=== PATIENT | female | born 1950 | race Two or more races ===

== ENCOUNTER 2024-04-22 08:08 | Inpatient (IN) | payer MEDICARE, BC, SELFPAY ==
[2024-04-22] VITALS (7 sets, daily range): BP systolic 128–147; BP diastolic 69–80; PULSE 64–98; RESP 16–96; TEMP 36.7–37; O2SAT 94–100; BMI 32.2; BMI 29.2
--- NOTE | 2024-04-22 08:53 | XR_ITS ---
Examination: Abdomen AP single view Technique: AP portable supine abdomen, single view Exam date and time: April 22, 2024 at 0900 hrs. Indications: Gastrointestinal bleeding beginning 3 days ago. Findings: Large staghorn calculus upper pole calyces left kidney Surgical clips upper right abdomen Nonobstructive bowel gas pattern Impression: Nonobstructive bowel gas pattern Consider nuclear medicine gastrointestinal bleeding study follow-up or CTA abdomen pelvis post intravenous contrast follow-up
--- NOTE | 2024-04-22 08:54 | PD.EDRME ---
Rapid Medical Screening Exam RME Arrival date/time: 04/22/24 08:08 Chief Complaint: GI Bleed Time Seen by Provider: 04/22/24 08:24 Vital signs: Vital Signs Temperature 98.6 F 04/22/24 08:35 Pulse Rate 98 04/22/24 08:35 Respiratory Rate 20 04/22/24 08:35 Blood Pressure 144/80 H 04/22/24 08:35 Pulse Oximetry (%) 97 04/22/24 08:35 Oxygen Delivery Method Room Air 04/22/24 08:35 Vital signs reviewed by provider: Yes RME Narrative: 73-year-old female presents for evaluation of GI bleed x 1 day. She denies abdominal pain. Denies prior abdominal bleed. Patient is not currently taking blood thinner. Denies recent trauma
--- NOTE | 2024-04-22 09:02 | XR_ITS ---
Examination: CT abdomen and pelvis without contrast. Coronal 3-D reconstructions. Sagittal 2-D reconstructions. Date and time of exam:April 22, 2024 0913 hrs. Indications: Onset blood in the stool today CTDI: vol (mGy): 11.6 DLP: (mGycm): 654 Technique: Axial images of the abdomen have been obtained, 3 mm slice thickness Intravenous contrast material has not been administered. Low dose protocols were performed. One or more of the following dose reduction techniques were used; automated exposure control, adjustment of the mA and/or KV according to patient size, use of iterative reconstruction technique. Findings: Liver is irregular in contour Absent gallbladder Spleen is not enlarged No pancreatic mass Large staghorn left renal calculi without hydronephrosis Aorta normal size and heavily calcified No pericecal inflammatory change No bowel obstruction Colonic diverticulosis Contracted urinary bladder Lack of intravenous contrast limits assessment for gastrointestinal bleeding and Impression: Large left renal staghorn calculi No hydronephrosis or ureteral calculi No CT findings of appendicitis or bowel obstruction Colonic diverticulosis, no diverticulitis No findings diagnostic for nonspecific colitis or enteritis If gastrointestinal bleeding persists, suggest CTA abdomen pelvis post intravenous contrast follow-up
--- NOTE | 2024-04-22 09:30 | PC.NURSE ---
Pt. here from home to bed 6, pt. states she has blood in her stool since Thursday and every day it has gotten worse. Pt. has pictures on her phone and blood is bright red, it appears to be a moderate amount from the pictures. From the picture water in pt.'s toilet is red. Pt. states she doesn't feel bad and yesterday was painting a rental house. Pt. has small red dots to her lower extremities, pt. states she thinks they are flea bites. No s/s of distress noted at this time. Warm blanket given to pt.
[2024-04-22 09:37] LABS: Basophils # (Auto) 0.1 Thou/mm3 (0.0-0.2); Basophils % (Auto) 1 % (0-2.5); Eosinophils # (Auto) 0.1 Thou/mm3 (0.0-0.5); Eosinophils % (Auto) 1 % (0-10); Hematocrit 38.7 % (36.0-46.0); Hemoglobin 12.8 g/dL (12.0-16.0); Immature Granulocytes % (Auto) 0 % (0-0); Immature Granulocytes Auto 0.03 Thou/mm3 (0.00-0.00); Lymphocytes # (Auto) 1.3 Thou/mm3 (1.0-4.8); Lymphocytes % (Auto) 13 % (10-50); Mean Corpuscular HGB Conc 33.1 g/dl (31.0-37.0); Mean Corpuscular Volume 100 fL (80-100); Monocytes # (Auto) 0.4 Thou/mm3 (0.0-0.8); Monocytes % (Auto) 5 % (0-12); Neutrophils # (Auto) 7.6 Thou/mm3 (1.8-7.7); Neutrophils % (Auto) 81 % (37-80); Nucleated Red Blood Cell % 0 /100 WBC (0); Platelet Count 215 Thou/mm3 (140-440); RDW Standard Deviation 46.5 fL (36.4-46.3); Red Blood Count 3.88 Miln/mm3 (4.00-5.20); White Blood Count 9.5 Thou/mm3 (3.6-11.0)
--- NOTE | 2024-04-22 09:37 | EDNOTE_ITS ---
ED GI Bleed RME/HPI General Chief complaint: GI Bleed Stated complaint: BLOODY STOOL Time Seen by Provider: 04/22/24 08:24 Arrival date/time: 04/22/24 08:08 Limitations: no limitations RME / HPI RME / HPI Narrative: HPI (History of Present Illness): A 73-year-old female presents for evaluation of gastrointestinal bleeding, which has been ongoing for one day. She denies any associated abdominal pain or previous episodes of abdominal bleeding. The patient is not currently on blood thinners and reports no recent trauma. She provides photographs of her commode, which show bright red blood. Notably, she underwent a routine colonoscopy one year ago, which was unremarkable. Her past surgical history includes a cholecystectomy. Differential Diagnosis (DDx): * Hemorrhoids: Given the bright red blood in the commode, hemorrhoids are a common cause of lower gastrointestinal bleeding, often presenting with painless rectal bleeding. * Diverticular Disease: Diverticulosis or diverticulitis can present with acute, painless lower GI bleeding, often manifesting as bright red blood. * Colorectal Cancer: Although the patient?s previous colonoscopy was unremarkable, new onset bleeding warrants consideration of a mass or malignancy, particularly in an elderly patient. * Gastric or Duodenal Ulcer: Upper GI sources of bleeding, such as peptic ulcer disease, can present with hematochezia if the bleeding is profuse or rapid. * Angiodysplasia: Vascular malformations in the colon can cause intermittent, painless bleeding, often in the elderly. * Small Bowel Bleeding: While less common, a source of bleeding in the small int estine could present with hematochezia. Given the lack of abdominal pain and the patient's unremarkable colonoscopy history, further diagnostic work-up may be required to localize the source of the bleeding. Related Data Home Medications ?Medication ?Instructions ?Recorded ?Confirmed atorvastatin 40 mg tablet (Lipitor) 40 mg PO QDAY 06/26/22 03/08/24 loratadine 10 mg tablet (Claritin) 10 mg PO QDAY 06/30/22 03/08/24 Allergies Allergy/AdvReac Type Severity Reaction Status Date / Time No Known Allergies Allergy Verified 04/22/24 08:09 Review of Systems Review of Systems Systems Reviewed: All systems reviewed, normal except as documented Past Medical History Past Medical History NEUROLOGIC: Negative Neurological Disorders CARDIAC: Positive Cardiac Disorders and Hypercholesterolemia GASTROINTESTINAL: Positive Gastrointestinal Disorders (fatty liver), Gall Bladder Disease and Obesity GENITOURINARY: Positive Genitourinary Disorders and Kidney Stones REPRODUCTIVE: Positive Previous Pregnancies MUSCULOSKELETAL: Positive Musculoskeletal Disorders (cysts in spinal magdiel) ENDOCRINE: Negative Endocrine Disorders OTHER HISTORY: Positive Hospitalization (surgeries) and Blood Transfusions Family History FAMILY HISTORY: Positive Family Cardiac Disorders, Family Cancer and Family Surgery Surgical History SURGICAL: Positive Arthroscopy (ligament left ankle) and Section (2); Negative Cardiac Surgery Social History SMOKING STATUS: Never smoker ED Exam General Limitations: Present no limitations General appearance: Present alert and in no apparent distress Head Head exam: Present atraumatic, normocephalic and normal inspection Eye Eye exam: Present normal appearance ENT ENT exam: Present normal exam and normal oropharynx Neck Neck exam: Present normal inspection and full ROM Chest Chest inspection: Present symmetric chest wall rise Respiratory Respiratory exam: Present normal lung sounds bilaterally Cardiovascular Cardiovascular exam: Present regular rate and normal rhythm Abdominal Exam Abdominal exam: Present soft and normal bowel sounds Rectal Exam Rectal exam: Present normal inspection and hemorrhoids (Empty hemorrhoid without active bleeding. BRB mixed with stool. Bella RN chaperoned) Extremities Exam Extremities exam: Present normal inspection Back Exam Back exam: Present normal inspection Neurological Exam Neurological exam: Present alert, oriented X3 and CN II-XII intact Psychiatric Psychiatric exam: Present normal affect and normal mood Skin Skin exam: Present warm, dry and intact Course Quality Measures none Orders Category Date Time Status COVID-19 Screening Questionnaire NOW Care 04/22/24 10:01 Active Decision to Admit X1 Care 04/22/24 10:00 Active Insert IV STAT Care 04/22/24 08:51 Active NPO NOW Care 04/22/24 08:51 Active Occult Blood,Stool (Nursing) NOW Care 04/22/24 08:[address] abdomen pelvis wo con Stat Exams 04/22/24 09:02 Completed XR abdomen 1V Stat Exams 04/22/24 08:53 Completed CBC Stat Lab 04/22/24 09:10 Completed Comprehensive Metabolic Panel Stat Lab 04/22/24 09:10 Completed Lipase Stat Lab 04/22/24 09:10 Completed Magnesium Stat Lab 04/22/24 09:10 Completed Partial Thromboplastin Time Stat Lab 04/22/24 09:10 Completed Prothrombin Time with INR Stat Lab 04/22/24 09:10 Completed Troponin I Stat Lab 04/22/24 09:10 Completed Type and Screen Stat Lab 04/22/24 09:10 Completed Urinalysis Stat Lab 04/22/24 08:52 Ordered Urine Culture Stat Lab 04/22/24 08:52 Ordered Pantoprazole Inj [Protonix Inj] Med 04/22/24 08:51 Discontinued 40 mg IVP X1 ONE Vital Signs Vital signs: Vital Signs Temperature 98.6 F 04/22/24 08:35 Pulse Rate 98 04/22/24 08:35 Respiratory Rate 20 04/22/24 08:35 Blood Pressure 144/80 H 04/22/24 08:35 Pulse Oximetry (%) 97 04/22/24 08:35 Oxygen Delivery Method Room Air 04/22/24 08:35 Pulse ox is 97% on room air which is adequate. GI Bleed MDM Narrative MDM Narrative:: Roxy Martinez am scribing for and in the presence of Dr. Alexander. Patient data External records reviewed:: [facility] previous records (I reviewed colonoscopy on 06/30/2022) Clinical information provided by:: patient Social determinants that could affect healthcare access:: none Patient has the following chronic illnesses:: hx of cholecystectomy, hyperlipidemia How is presenting disease/condition affected by chronic disease/condition?: uneffected by Evaluation data The following diagnostics were reviewed and interpreted by me:: lab results and radiology exam(s) Lab and/or radiology exams considered but not ordered:: None Interpretation Summary: Ordering Physician: Igor Monroe PA-C Date of Service: 04/22/24 Procedure(s): CT abdomen pelvis wo [facility] Accession Number(s): [id number] cc: Igor Monroe PA-C; Matt Balderas MD~ Examination: CT abdomen and pelvis without contrast. Coronal 3-D reconstructions. Sagittal 2-D reconstructions. Date and time of exam:April 22, 2024 0913 hrs. Indications: Onset blood in the stool today CTDI: vol (mGy): 11.6 DLP: (mGycm): 654 Technique: Axial images of the abdomen have been obtained, 3 mm slice thickness Intravenous contrast material has not been administered. Low dose protocols were performed. One or more of the following dose reduction techniques were used; automated exposure control, adjustment of the mA and/or KV according to patient size, use of iterative reconstruction technique. Findings: Liver is irregular in contour Absent gallbladder Spleen is not enlarged No pancreatic mass Large staghorn left renal calculi without hydronephrosis Aorta normal size and heavily calcified No pericecal inflammatory change No bowel obstruction Colonic diverticulosis Contracted urinary bladder Lack of intravenous contrast limits assessment for gastrointestinal bleeding and Impression: Large left renal staghorn calculi No hydronephrosis or ureteral calculi No CT findings of appendicitis or bowel obstruction Colonic diverticulosis, no diverticulitis No findings diagnostic for nonspecific colitis or enteritis If gastrointestinal bleeding persists, suggest CTA abdomen pelvis post intravenous contrast follow-up Dictated By: Matt Balderas MD Signed By: <Electronically signed by Matt Balderas MD in OV> 04/22/24 1011 Ordering Physician: Igor Monroe PA-C Date of Service: 04/22/24 Procedure(s): XR abdomen 1V Accession Number(s): [id number] cc: Igor Monroe PA-C; Matt Balderas MD; Bettina Mendiola MD~ Examination: Abdomen AP single view Technique: AP portable supine abdomen, single view Exam date and time: April 22, 2024 at 0900 hrs. Indications: Gastrointestinal bleeding beginning 3 days ago. Findings: Large staghorn calculus upper pole calyces left kidney Surgical clips upper right abdomen Nonobstructive bowel gas pattern Impression: Nonobstructive bowel gas pattern Consider nuclear medicine gastrointestinal bleeding study follow-up or CTA abdomen pelvis post intravenous contrast follow-up Dictated By: Matt Balderas MD Signed By: <Electronically signed by Matt Balderas MD in OV> 04/22/24 1030 Medications / Prescriptions Medications or Prescriptions considered but not ordered:: None Medication administrations:: Medication Administration History Discontinued Medications Pantoprazole Sodium (Pantoprazole Inj 40 Mg Vial) 40 mg IVP X1 ONE Stop: 04/22/24 08:52 Last Admin: 04/22/24 10:31 Dose: 40 mg Documented By: DO See above Consultations Consultation(s) initiated? (list below): Yes Consultation #1 (Physician, Specialty, Details): I spoke with GI Dr. Jones. Discussed patients PMHx, HPI, ED course, exam findings, labs, and radiology results. He agrees to consult. Time: 09:50 Consultation #2 (Physician, Specialty, Details): I spoke with resident Dr. Mitchell working with Dr. Kaufman. Discussed patients PMHx, HPI, ED course, exam findings, labs, and radiology results. Will come evaluate the patient in the ED. Time: 10:00 Diagnosis GI bleed differential diagnosis: other (diverticulitis, colorectal cancer, gastric or duodenal ulcer, angiodysplasia ) Most likely diagnosis given after review of the tests above:: Bright red blood per rectum Admission Indicated Admission indicated?: indicated Admission Request Was there a request for admission?: Yes Admission Attestation Admission request attestation: Discussed case with [] from Hospitalist service regarding admission. Discussed patients ED course, exam findings, labs, and radiology results. The Hospitalist [agrees,declines] to accept the patient for admission. Disposition Plan Disposition Plan: Admit Discharge Plan Plan Patient Disposition: Admit Acute Care w/in Hospital Patient condition on transfer: Stable Prescriptions/Referrals Prescriptions/Med Rec: No Action atorvastatin [Lipitor] 40 mg tablet 40 mg PO QDAY loratadine [Claritin] 10 mg Tablet 10 mg PO QDAY Problem List Clinical Impression: BRBPR (bright red blood per rectum) Patient/Caregiver Discharge Instructions Print Language: [place]an Stand Alone Forms: Padma Award Info., Patient Portal Info Letter
[2024-04-22 09:38] LABS: Partial Thromboplastin Time 25.5 Seconds (22.0-36.0); Prothrombin Time 10.7 Seconds (9.0-12.2)
[2024-04-22 09:42] LABS: Alanine Aminotransferase 19 U/L (10-49); Albumin, Serum 3.9 gm/dL (3.4-4.8); Albumin/Globulin Ratio 1.3 (1.2-2.2); Alkaline Phosphatase 137 U/L (46-116); Anion Gap 6 (7-16); Aspartate Amino Transferase 25 U/L (0-34); BUN/Creatinine Ratio 21 Ratio (12-20); Bilirubin,Total 0.6 mg/dL (0.3-1.2); Blood Urea Nitrogen 15 mg/dL (9-23); Calcium 9.5 mg/dL (8.3-10.6); Calcium (Corrected) 9.6 mg/dL (8.5-10.1); Carbon Dioxide 27.3 mMol/L (20.0-31.0); Chloride 109 mMol/L (98-107); Creatinine (Component) 0.7 mg/dL (0.6-1.3); Glucose 106 mg/dL (74-106); Lipase 37 U/L (12-53); Magnesium 2.1 mg/dL (1.6-2.6); Osmolality,Calculated 283 (275-295); Potassium 3.8 mMol/L (3.4-5.1); Sodium 142 mMol/L (136-145); Total Protein 6.9 gm/dL (5.7-8.2); Troponin I < 0.020 ng/mL (0.0-0.045); eGFR > 60 See Note
--- NOTE | 2024-04-22 09:49 | PC.NURSE ---
assisted Dr. Alexander in room 6, Dr. Alexander assessing pt.'s buttocks and anus. Pt. tolerated well. Cleaned pt. buttocks with warm wipes, pt. had dried blood present.
[2024-04-22] MEDS: PANTOPRAZOLE INJ 40 MG VIAL IVP ×2 (10:31→20:28)
--- NOTE | 2024-04-22 11:11 | PC.NURSE ---
Pt. denies any dizziness.
--- NOTE | 2024-04-22 11:30 | PC.CC ---
Patient is a 73 year-old, female who presents to the hospital for bloody stool. Luz Marina HERNANDEZ made [id number] contact with patient. ASW introduced self, role, and reason for visit. Patient appeared alert and oriented to self, location, and situation. Patient was pleasant and engaged in initial assessment. Patient confirmed information on demographics and reports to living at home with her Shon Arredondo . Patient shared her and son Ronal Arredondo are both part of her support system. Per patient, prior to being admitted to the hospital she was able to complete her own ADLs and is independently ambulatory. The patient received primary care with Dr. Mendiola and uses [facility] for prescription medication needs. Upon discharge patient plans to return back home. resident services coordinator to follow-up with any discharge needs.
--- NOTE | 2024-04-22 13:08 | ESHP_ITS ---
<Statement entered by Uzair Kaufman MD - 04/26/24 14:25> I reviewed above note and agree with findings and plans. I have also personally examined the patient with medicine team and went over assessment and plan with medical team including legal internship and resident physician. <Statement entered by Fred Linares DO - 04/22/24 15:52> Senior attestation: Patient was examined and case was reviewed with team including attending physician. Note reviewed, I agree with most of its contents and agree with the patient's care. Patient is a 73 year old female with history of hyperlipidemia and staghorn calculi who presented to [facility] with concerns of bright red blood per rectum, starting 2 days prior. Patient follows urologist Dr. Lester in outpatient setting, last seen roughly 6 weeks prior and is not interested in urology procedures at this time as her is undergoing treatment for pancreatic cancer. Patient reported red blood in commode, but did not endorse any urological symptoms such as flank pain, CVA tenderness, dysuria, or hematuria. Last colonoscopy was roughly 1 year ago, patient endorses only a polyp removal but otherwise states the colonoscopy was unremarkable. Hemoglobin noted to be 12.8 today. Will admit patient for lower GI bleed, GI Dr. Jones consulted who will evaluate patient, we appreciate recommendation. Meanwhile will start IV PPI BID, clear liquid diet, avoid chemical anticoagulation, and follow up with GI recommendations. Will closely monitor hemoglobin levels for any acute drop requiring transfusion. Fred Linares DO PGY-3 Documentation for date of: 04/22/24 HPI History of Present Illness Chief complaint: Lower GI bleed History of present illness: Ms. Arredondo is a 73-year-old female with past medical history of hyperlipidemia and staghorn calculi who presented to [facility] with a chief complaint of bright red blood per rectum. According to the patient her symptoms started this Thursday (04/20), when she noticed bright red blood in her stool with bright red blood staining the toilet paper on wiping not associated with any pain. Patient does report history of hemorrhoids, denies any similar prior episodes, patient denies any bloody emesis and hematuria. Patient reports regular bowel movements, no change in bowel habits, no constipation and diarrhea. She provides pictures of bright red blood seen in the commode, patient does report she had a colonoscopy about 1 year ago which was significant for one polyp that was removed, reported that she was scheduled for next colonoscopy in 5 to 7 years. Patient does report using OTC Aleve for the last 2 weeks, reports taking 1 tablet/day, does report on and off mild abdominal discomfort and right upper quadrant, currently denies any pain. Otherwise patient denies any dizziness, headache, shortness of breath and chest pain. ED Course: TN exam done by ED physician showed hemorrhoids, did visualize bright red blood, no bleeding from hemorrhoids noted per ED physician ED Vitals: ED vitals on presentation significant for BP 144/80, P98, RR 20, temp 98.6, O2 sat 97 on room air ED Labs: Patient's labs on presentation significant for RBC 3.88, chloride 109, alk phos 137 ED Imaging:Abdominal x-ray shows nonobstructive bowel gas pattern and CT abdomen pelvis significant for large left renal staghorn calculi, colonic diverticulosis ED Treatment: Patient was given IV Protonix x 1 in ED Review of Systems Review of Systems Narrative Review of Systems: ROS: -CONSTITUTIONAL: Denies weight loss, fever and chills. -HEENT: Denies changes in vision and hearing. -RESPIRATORY: Denies SOB and cough. -CV: Denies palpitations and Chest Pain. -GI: Denies abdominal pain, nausea, vomiting,constipation and diarrhea. Positive for bright red blood per rectum. -: Denies dysuria and urinary frequency. -MSK: Denies myalgia and joint pain. -SKIN: Denies rash and pruritus. -NEUROLOGICAL: Denies headache and syncope. -PSYCHIATRIC: Denies recent changes in mood. Denies anxiety and depression. Past Medical History Past Medical History Comments PMH COMMENT: PMH: Positive for renal stone and hyperlipidemia Past Sx History: Cholecystectomy Allergies: No known allergies Social history: -Smoking: Denies -Alcohol Use: Denies -Illicit Drug Use: Denies -Martial Status: Family History: Positive for esophageal cancer in mother, denies any family history of colon cancer. Exam Vital Signs Temp Pulse Resp BP Pulse Ox O2 Del Method 98.4 F 79 17 140/72 H 100 Room Air 04/22/24 13:05 04/22/24 13:05 04/22/24 13:05 04/22/24 13:05 04/22/24 13:05 04/22/24 13:05 Narrative Exam Physical Exam General: Awake and in no acute distress. Conversational and non-toxic appearing. HEENT: Normocephalic, atraumatic, mucous membranes moist. Heart: Regular rate and rhythm, no murmurs. Lungs: Clear to auscultation with no wheezing or crackles. Abdomen: Soft, nondistended, nontender, positive bowel sounds. ?No guarding or rebound tenderness. Neurologic: Alert and oriented x3, no gross neurological deficit, and patient able to move all 4 extremities. Extremities: No edema. Skin: Bilateral petechiae like-rash noted on bilateral legs. Results: Labs 04/22/24 09:10 04/22/24 09:10 Labs: Short CBC 04/22/24 Range/Units 09:10 WBC 9.5 (3.6-11.0) Thou/mm3 Hgb 12.8 (12.0-16.0) g/dL Hct 38.7 (36.0-46.0) % Plt Count 215 (140-440) Thou/mm3 BMP 04/22/24 09:10 Sodium 142 Potassium 3.8 Chloride 109 H Carbon Dioxide 27.3 BUN 15 Creatinine 0.7 Glucose 106 Calcium 9.5 Cardiac Enzymes 04/22/24 Range/Units 09:10 Troponin I < 0.020 (0.0-0.045) ng/mL Liver Function 04/22/24 Range/Units 09:10 Total Bilirubin 0.6 (0.3-1.2) mg/dL AST 25 (0-34) U/L ALT 19 (10-49) U/L Alkaline Phosphatase 137 H (46-116) U/L Albumin 3.9 (3.4-4.8) gm/dL Quality Measures Quality Measures none Advance care planning discussed with:: patient Medications Home Medications and Allergies Home Medications ?Medication ?Instructions ?Recorded ?Confirmed ?Type atorvastatin 40 mg tablet (Lipitor) 40 mg PO QDAY 06/26/22 03/08/24 History loratadine 10 mg tablet (Claritin) 10 mg PO QDAY 06/30/22 03/08/24 History Allergies Allergy/AdvReac Type Severity Reaction Status Date / Time No Known Allergies Allergy Verified 04/22/24 08:09 Visit Medications Acetaminophen (Acetaminophen 325 Mg Tablet) 650 mg PO Q6H PRN PRN Reason: Pain and Fever >101.5 Stop: 05/22/24 12:08 Ondansetron HCl (Ondansetron Inj 2 Mg/Ml Inj 2 Ml) 4 mg IV Q6H PRN; Protocol PRN Reason: NAUSEA OR VOMITING Stop: 05/22/24 12:08 Pantoprazole Sodium (Pantoprazole Inj 40 Mg Vial) 40 mg IVP Q12HR VALARIE Stop: 05/22/24 20:59 Sennosides (Senna Tablet) 1 tab PO QDAY PRN; Protocol PRN Reason: constipation Stop: 05/22/24 12:08 Discontinued Medications Pantoprazole Sodium (Pantoprazole Inj 40 Mg Vial) 40 mg IVP X1 ONE Stop: 04/22/24 08:52 Last Admin: 04/22/24 10:31 Dose: 40 mg Assessment & Plan Plan Assessment and Plan: Summary: Ms. Arredondo is a 73-year-old female with past medical history of hyperlipidemia and staghorn calculi who presented to [facility] with a chief complaint of bright red blood per rectum. Patient admitted for lower GI bleed workup. # Lower GI bleed # Hematochezia Differential diagnoses: Diverticular bleed, hemorrhoids, AV malformation, low suspicion of CA. -Patient complains of painless bright red blood per rectum for the last 2 days, denies any diarrhea, constipation, abdominal pain and discomfort. Of note patient had colonoscopy about less than 1 year showed a single polyp which was removed. Rectal exam done by ED physician shows hemorrhoids and jay blood. -Patient does have history of hemorrhoids, reports no similar episode in the past, CT abdomen pelvis does show colonic diverticulosis, increases suspicion for diverticular bleeding. Plan: -IV Protonix twice daily -Clear liquid diet -GI evaluation -Consulted GI, appreciate recommendations -Monitor H&H -Follow CBC CMP in a.m. # Left renal staghorn calculi -CTAP shows Large left renal staghorn calculi, patient is asymptomatic denies any abdominal pain, no CVA tenderness, no hematuria. -Patient follows with Dr. Lester outpatient, reports that renal calculi is chronic, reports seeing Dr. Lester about 2 weeks ago -Patient reported that her has pancreatic cancer and she declined any intervention for the calculi for now. DVT prophylaxis: SCD GI prophylaxis: Protonix twice daily Diet: Clear liquid diet Lines: Peripheral IV Code status: Full code Case discussed with Attending Dr. Kaufman and Dr. Linares PGY3. Aleyda Mitchell PGY1
[2024-04-22 15:29] LABS: Collection Type, Urine Clean Catch
[2024-04-22 15:43] LABS: Bacteria,Urine Rare; Bilirubin,Urine Negative (Negative); Blood,Urine Negative (Negative); Color,Urine Lt-Yellow (Lt Yel-Yel); Glucose, Urine Negative (Negative); Ketones,Urine Trace (Negative); Leukocyte Esterase,Urine Positive (Negative); Nitrite,Urine Negative (Negative); Protein,Urine Negative (Neg - Trace); RBC,Urine 14 /hpf (0-3); Specific Gravity,Urine 1.017 (1.001-1.035); Squamous Epithelial Cell,Urine < 1 /hpf (0-5); Urobilinogen,Urine Negative mg/dL (0.0-1.0); WBC,Urine 1 /hpf (0-5)
[2024-04-22 16:00] LABS: Clarity,Urine Hazy (Clear/Hazy)
--- NOTE | 2024-04-22 19:59 | PD.IMCONS ---
HPI Data of Consult Requesting Physician: Uzair Kaufman MD Primary Care Provider: Bettina Mendiola MD Consult Narrative Reason for consult: Hematochezia History of present illness: 73 years old female comes into the emergency room with 1 day history of hematochezia She brought pictures with her and the bleeding was bright red blood in the toilet bowl On 06/30/2022 patient underwent a fibrotic colonoscopy and upper endoscopy which showed moderate diverticulosis sigmoid and descending colon gastritis esophagitis and Ansari's esophagus Patient currently not taking any blood thinners cc:: cc: Uzair Kaufman MD Review of Systems Review of Systems Systems Reviewed: All systems reviewed, normal except as documented Past Medical History Surgical History OTHER SURGICAL HX: Ventral hernia repair Spinal cyst removal Left ankle surgery for ligament tear Left total knee replacement Hyperlipidemia Meds Home Medications and Allergies Home Medications ?Medication ?Instructions ?Recorded ?Confirmed ?Type atorvastatin 40 mg tablet (Lipitor) 40 mg PO QDAY 06/26/22 04/22/24 History loratadine 10 mg tablet (Claritin) 10 mg PO QDAY 06/30/22 04/22/24 History naproxen sodium 220 mg tablet 220 mg PO Q12H PRN back pain 04/22/24 04/22/24 History (Aleve) Allergies Allergy/AdvReac Type Severity Reaction Status Date / Time No Known Allergies Allergy Verified 04/22/24 08:09 Exam Vital Signs Temp Pulse Resp BP Pulse Ox O2 Del Method 98.0 F 72 16 147/78 H 96 Room Air 04/22/24 16:00 04/22/24 16:08 04/22/24 16:08 04/22/24 16:00 04/22/24 16:00 04/22/24 16:00 Constitutional Comments: Alert active oriented Routine Respiratory Exam Comments: Normal to auscultation Routine Abdominal Exam Comments: Soft nontender Results Labs 04/22/24 09:10 04/22/24 09:10 Labs: Short CBC 04/22/24 Range/Units 09:10 WBC 9.5 (3.6-11.0) Thou/mm3 Hgb 12.8 (12.0-16.0) g/dL Hct 38.7 (36.0-46.0) % Plt Count 215 (140-440) Thou/mm3 BMP 04/22/24 09:10 Sodium 142 Potassium 3.8 Chloride 109 H Carbon Dioxide 27.3 BUN 15 Creatinine 0.7 Glucose 106 Calcium 9.5 Cardiac Enzymes 04/22/24 Range/Units 09:10 Troponin I < 0.020 (0.0-0.045) ng/mL Liver Function 04/22/24 Range/Units 09:10 Total Bilirubin 0.6 (0.3-1.2) mg/dL AST 25 (0-34) U/L ALT 19 (10-49) U/L Alkaline Phosphatase 137 H (46-116) U/L Albumin 3.9 (3.4-4.8) gm/dL Urine 04/22/24 Range/Units 14:30 Urine Color Lt-Yellow (Lt Yel-Yel) Urine Clarity Hazy (Clear/Hazy) Urine pH 7.0 (5.0-7.0) Ur Specific [place] 1.017 (1.001-1.035) Urine Protein Negative (Neg - Trace) Urine Glucose (UA) Negative (Negative) Assessment and Plan Additional Assessment & Plan Additional Plan: # Hematochezia with the clinical presentation is most likely a diverticular bleed Suggestions No reaction to colonoscopy Lets see how she does over the next 24 hours Serial CBC Clear liquid diet If patient continues to bleed will need a repeat colonoscopy and possible nuclear medicine GI bleeding scan Avoid NSAIDs Will follow the patient
[2024-04-22] MEDS: NA SU/NAHCO3/KC/PEG (Golytely) 4,000 ML BTL 4000 ML PO (20:28)
[2024-04-23] VITALS (21 sets, daily range): BP systolic 109–168; BP diastolic 47–96; PULSE 65–85; RESP 11–98; TEMP 36.1–37.2; O2SAT 92–100; BMI 29.4
[2024-04-23 06:44] LABS: Basophils % (Auto) 1 % (0-2.5); Eosinophils # (Auto) 0.2 Thou/mm3 (0.0-0.5); Eosinophils % (Auto) 3 % (0-10); Hematocrit 28.4 % (36.0-46.0); Hemoglobin 9.5 g/dL (12.0-16.0); Immature Granulocytes % (Auto) 0 % (0-0); Immature Granulocytes Auto 0.01 Thou/mm3 (0.00-0.00); Lymphocytes # (Auto) 1.7 Thou/mm3 (1.0-4.8); Lymphocytes % (Auto) 33 % (10-50); Mean Corpuscular HGB Conc 33.5 g/dl (31.0-37.0); Mean Corpuscular Hemoglobin 33.1 pg (25.0-35.0); Mean Corpuscular Volume 99 fL (80-100); Monocytes # (Auto) 0.5 Thou/mm3 (0.0-0.8); Monocytes % (Auto) 10 % (0-12); Neutrophils # (Auto) 2.9 Thou/mm3 (1.8-7.7); Neutrophils % (Auto) 54 % (37-80); Nucleated Red Blood Cell % 0 /100 WBC (0); Platelet Count 164 Thou/mm3 (140-440); RDW Standard Deviation 45.3 fL (36.4-46.3); Red Blood Count 2.87 Miln/mm3 (4.00-5.20); White Blood Count 5.3 Thou/mm3 (3.6-11.0)
[2024-04-23 06:56] LABS: Alanine Aminotransferase 16 U/L (10-49); Albumin, Serum 3.1 gm/dL (3.4-4.8); Albumin/Globulin Ratio 1.6 (1.2-2.2); Alkaline Phosphatase 102 U/L (46-116); Anion Gap 6 (7-16); Aspartate Amino Transferase 23 U/L (0-34); BUN/Creatinine Ratio 15 Ratio (12-20); Bilirubin,Total 0.5 mg/dL (0.3-1.2); Blood Urea Nitrogen 9 mg/dL (9-23); Calcium 8.5 mg/dL (8.3-10.6); Calcium (Corrected) 9.2 mg/dL (8.5-10.1); Cardiac Risk Estimate 3.9 RATIO (3.7-5.6); Chloride 108 mMol/L (98-107); Cholesterol 110 mg/dL (132-200); Creatinine (Component) 0.6 mg/dL (0.6-1.3); Estimated Creatinine Clearance 93.9 mL/min (>60); Glucose 92 mg/dL (74-106); HDL Cholesterol 28 mg/dL (40-60); LDL Cholesterol,Calculated 66 mg/dL (0-130); Magnesium 1.9 mg/dL (1.6-2.6); Osmolality,Calculated 281 (275-295); Phosphorous 3.4 mg/dL (2.4-5.1); Potassium 3.6 mMol/L (3.4-5.1); Sodium 142 mMol/L (136-145); Total Protein 5.1 gm/dL (5.7-8.2); Triglycerides 79 mg/dL (30-150); eGFR > 60 See Note
--- NOTE | 2024-04-23 09:28 | XR_ITS ---
Examination: CTA abdomen, with intravenous contrast. CTA pelvis, with intravenous contrast. 2-D sagittal and coronal reconstructions. 3-D reconstructions. Date and time of exam: April 23, 2024 1224 hrs. Indications: Blood in the stools 3 days, diagnosis lower gastrointestinal bleeding CTDI vol (mgy) 11.8 DLP (MGycm) 556 Technique: Multiple CTA images, 2.0 mm slice thickness, obtained chest, abdomen, pelvis, with the high-resolution 64 slice scanner. 100 cc Isovue-370 is administered intravenously. Sagittal and coronal 2-D reconstructions are obtained. 3-D reconstructions, angiographic images are obtained. 3-D postprocessing, including vascular maximum intensity projections. Low dose protocols were performed. One or more of the following dose reduction techniques were used; automated exposure control, adjustment of the mA and/or KV according to patient size, use of iterative reconstruction technique. Findings: Small pericardial effusion Gastric mucosa is edematous Retrocardiac gastric hernia No focal liver or splenic lesions Absent gallbladder No pancreatic mass Large staghorn calculi upper pole left kidney Left parapelvic cysts No hydronephrosis Normal appendix No bowel obstruction Scattered colonic diverticulosis No jay extravasation of contrast in the gastrointestinal tract Urinary bladder intact Prominent osteopenia with chronic osteoporotic compression L4 Moderate thickening of the urinary bladder wall Impression: Suspicious for gastritis No contrast extravasation in the gastrointestinal tract History bleeding persists, consider nuclear medicine gastrointestinal bleeding study follow-up
[2024-04-23] MEDS: PANTOPRAZOLE INJ 40 MG VIAL IVP ×2 (09:38→20:08)
[2024-04-23 10:10] LABS: Hematocrit 33.9 % (36.0-46.0); Hemoglobin 11.3 g/dL (12.0-16.0)
--- NOTE | 2024-04-23 11:07 | ESPR_ITS ---
<Statement entered by Uzair Kaufman MD - 04/26/24 14:25> I reviewed above note and agree with findings and plans. I have also personally examined the patient with medicine team and went over assessment and plan with medical team including financial intern and resident physician. <Statement entered by Fred Linares DO - 04/23/24 21:03> Senior attestation: Patient was examined and case was reviewed with team including attending physician. Note reviewed, I agree with most of its contents and agree with the patient's care. Hemoglobin noted to drop to 9.5 however mild improvement on repeat HH today. Colonoscopy completed today, following GI Dr. Jones recommendations have initiated transfer process for embolization of suspected small bowel bleed. Meanwhile, will repeat HH and order q6hour hemoglobin levels to closely monitor for any significant hemoglobin decrease. Fred Linares DO PGY-3 Documentation for date of: 04/23/24 Subjective Subjective Interval history: Patient seen at bedside. Hemoglobin overnight dropped from 12.8 to 9.5 Repeat checked was hemoglobin 11.3 CT angio AP showed suspicion for gastritis and no contrast extravasation in GI tube. Consulted GI, possible colonoscopy today, patient is on GoLytely prep. Will continue to monitor patient Exam Vital Signs Temp Pulse Resp BP Pulse Ox O2 Del Method 98.1 F 79 16 130/77 94 L Room Air 04/23/24 07:27 04/23/24 09:55 04/23/24 07:27 04/23/24 07:27 04/23/24 07:27 04/23/24 07:27 Narrative Exam Physical Exam General: Awake and in no acute distress. Conversational and non-toxic appearing. HEENT: Normocephalic, atraumatic, mucous membranes moist. Heart: Regular rate and rhythm, no murmurs. Lungs: Clear to auscultation with no wheezing or crackles. Abdomen: Soft, nondistended, nontender, positive bowel sounds. ?No guarding or rebound tenderness. Neurologic: Alert and oriented x3, no gross neurological deficit, and patient able to move all 4 extremities. Extremities: No edema. Skin: Bilateral petechiae like-rash noted on bilateral legs. Objective Labs 04/23/24 09:13 04/23/24 05:15 Labs: Laboratory Results - last 24 hr 04/22/24 04/23/24 04/23/24 14:30 05:15 09:13 WBC 5.3 D RBC 2.87 L Hgb 9.5 L D 11.3 L Hct 28.4 L D 33.9 L MCV 99 MCH 33.1 MCHC 33.5 RDW Std Deviation 45.3 Plt Count 164 D Neut % (Auto) 54 Lymph % (Auto) 33 [place] % (Auto) 10 Eos % (Auto) 3 Baso % (Auto) 1 Neut # (Auto) 2.9 Lymph # (Auto) 1.7 [place] # (Auto) 0.5 Eos # (Auto) 0.2 Baso # (Auto) 0.0 Immature Gran # (Auto) 0.01 H Absolute Nucleated RBC 0.00 Immature Gran % 0 Nucleated RBC % 0 Sodium 142 Potassium 3.6 Chloride 108 H Carbon Dioxide 28.0 Anion Gap 6 L BUN 9 Creatinine 0.6 Estim Creat Clear Calc 93.9 eGFR > 60 BUN/Creatinine Ratio 15 Glucose 92 Calculated Osmolality 281 Calcium 8.5 Corrected Calcium 9.2 Phosphorus 3.4 Magnesium 1.9 Total Bilirubin 0.5 AST 23 ALT 16 Alkaline Phosphatase 102 D Total Protein 5.1 L Albumin 3.1 L D Globulin 2.0 L Albumin/Globulin Ratio 1.6 Triglycerides 79 Cholesterol 110 L LDL Cholesterol, Calc 66 HDL Cholesterol 28 L Cholesterol/HDL Ratio 3.9 Ur Collection Type Clean Catch Urine Color Lt-Yellow Urine Clarity Hazy Urine pH 7.0 Ur Specific [place] 1.017 Urine Protein Negative Urine Glucose (UA) Negative Urine Ketones Trace Urine Blood Negative Urine Nitrite Negative Urine Bilirubin Negative Urine Urobilinogen (Auto) Negative Ur Leukocyte Esterase Positive Urine RBC 14 H Urine WBC 1 Ur Squamous Epith Cells < 1 Urine Bacteria Rare Crossmatch See Detail Quality Measures Quality Measures none Advance care planning discussed with:: patient Assessment & Plan Assessment Current Active Medications: Generic Name Dose Route Start Last Admin Trade Name Freq PRN Reason Stop Dose Admin Acetaminophen 650 mg 04/22/24 12:09 Acetaminophen 325 Mg Tablet PO 05/22/24 12:08 Q6H PRN Pain and Fever >101.5 Ondansetron HCl 4 mg 04/22/24 12:09 Ondansetron Inj 2 Mg/Ml Inj 2 Ml IV 05/22/24 12:08 Q6H PRN NAUSEA OR VOMITING Protocol Pantoprazole Sodium 40 mg 04/22/24 21:00 11/30/24 09:38 Pantoprazole Inj 40 Mg Vial IVP 05/22/24 20:59 40 mg Q12HR VALARIE Administration Sennosides 1 tab 04/22/24 12:09 Senna Tablet PO 05/22/24 12:08 QDAY PRN constipation Protocol Plan Assessment and Plan: Summary: Ms. Arredondo is a 73-year-old female with past medical history of hyperlipidemia and staghorn calculi who presented to [facility] with a chief complaint of bright red blood per rectum. Patient admitted for lower GI bleed workup. # Lower GI bleed # Hematochezia Differential diagnoses: Diverticular bleed, hemorrhoids, AV malformation, low suspicion of CA. -Patient complains of painless bright red blood per rectum for the last 2 days, denies any diarrhea, constipation, abdominal pain and discomfort. Of note patient had colonoscopy about less than 1 year showed a single polyp which was removed. Rectal exam done by ED physician shows hemorrhoids and jay blood. -Patient does have history of hemorrhoids, reports no similar episode in the past, CT abdomen pelvis does show colonic diverticulosis, increases suspicion for diverticular bleeding. -04/23/2024: Hemoglobin overnight dropped from 12.8 to 9.5. Repeat checked was hemoglobin 11.3 CT angio AP showed suspicion for gastritis and no contrast extravasation in GI tube. Consulted GI, possible colonoscopy today, patient is on GoLytely prep. Plan: -Continue GoLytely prep -Monitor H&H closely -Scheduled for colonoscopy today p.m. -IV Protonix twice daily -N.p.o. for colonoscopy -GI evaluation -Consulted GI, appreciate recommendations -Monitor H&H -Follow CBC CMP in a.m. # Left renal staghorn calculi -CTAP shows Large left renal staghorn calculi, patient is asymptomatic denies any abdominal pain, no CVA tenderness, no hematuria. -Patient follows with Dr. Lester outpatient, reports that renal calculi is chronic, reports seeing Dr. Lester about 2 weeks ago -Patient reported that her has pancreatic cancer and she declined any intervention for the calculi for now. DVT prophylaxis: SCD GI prophylaxis: Protonix twice daily Diet: N.p.o. for now, GoLytely prep Lines: Peripheral IV Code status: Full code Case discussed with Attending Dr. Kaufman and Dr. Linares PGY3. Aleyda Mitchell PGY1
--- NOTE | 2024-04-23 14:58 | PC.SS ---
Rounding: Pending colonoscopy
--- NOTE | 2024-04-23 18:13 | ESDS_ITS ---
<Statement entered by Uzair Kaufman MD - 04/26/24 14:25> I reviewed above note and agree with findings and plans. I have also personally examined the patient with medicine team and went over assessment and plan with medical team including buyer intern and resident physician. <Statement entered by Fred Linares DO - 04/24/24 12:42> Senior attestation: Patient was examined and case was reviewed with team including attending physician. Note reviewed, I agree with most of its contents and agree with the patient's care. Additional comments as follows: Colonoscopy revealed moderate diverticulosis in sigmoid colon and in descending colon, with blood throughout the colon extending up to ileocecal valve and cecum. Ileocecal valve was intubated and distal 20cm of terminal ileum revealed blood, suggesting small bowel bleed or upper GI bleed. [employer] Driver Dr. Jones advises transfer to tertiary center for embolization of suspected small bowel bleed. [facility] transfer team aware, seeking transfer. Fred Linares DO PGY-3 Planned Discharge Date 04/23/24 DS: Providers Provider Date of admission: 04/22/24 12:05 Primary care physician: Bettina Mendiola MD Admitting Provider: Uzair Kaufman MD Attending Provider on Admission: Uzair Kaufman MD Consults: 04/22/24 12:12 Consult to Gastroenterology Stat Comment: Lower GI Bleed Consulting Provider: Luther Jones 04/23/24 18:00 Referral - [employer] [place] Routine Service Needed for Transfer: Interventional Radiology Addl Comments:: Patient has suspected small bowel bleed, will need transfer to tertiary care for embolization at the source of bleeding. GI workup completed at our facility Attending Provider on DC: Uzair Kaufman MD Discharging Provider: Uzair Kaufman MD Anticipated date of discharge: 04/23/24 DS: Diagnosis Problem List Completed Was Problem List Reviewed/Reconciled?: Yes Hospital Course Hospital Course Hospital course: Hospital course: Ms. Arredondo is a 73-year-old female with past medical history of hyperlipidemia and staghorn calculi who presented to [facility] with a chief complaint of painless bright red bleeding per rectum. Patient reported regular bowel movements, no change in bowel habits no constipation and diarrhea on admission, patient had recent colonoscopy about 1-1/2-year ago which was benign except for moderate diverticulosis, patient's hemoglobin was stable on admission, overnight patient had multiple episodes of lower GI bleed, painless hemoglobin in a.m. dropped from 12.8 to 9.5, CT angio of abdomen pelvis was suspicious for gastritis, no extravasation in the GI tract was noted. GI was consulted patient had colonoscopy which was positive for hemorrhoids, multiple medium mouth diverticula with evidence of recent bleeding from diverticular opening and blood was noted throughout the colon all the way up to ileocecal valve and cecum. Ileocecal valve was intubated at the distal 20 cm of terminal ileum showed a lot of blood suggestive of small bowel bleed or upper GI bleed. Patient had an EGD which was significant for esophagitis in the lower third of esophagus, gastritis and no evidence was upper GI bleed was seen. Per GI recommendations patient will be transferred to a tertiary care center for further evaluation and management of small bowel bleed, patient will probably need interventional radiology to embolize the source of bleed. Patient is stable for transfer. Discharge Diagnoses: # Small bowel bleed # Bleeding from terminal ileum # Diverticular bleed # Lower GI bleed # Hematochezia # Left renal staghorn calculi Case discussed with Attending Dr. Kaufman and Dr. Linares PGY3. Aleyda Mitchell PGY1 Status at Discharge Overall status at discharge: other (Transfer for management of small bowel GI bleed) Time Spent with Patient Time attestation: Total time spent providing and/or coordinating discharge services: Greater than 30 minutes Time spent: Greater than 30 minutes Exam Vital Signs Temp Pulse Resp BP Pulse Ox O2 Del Method O2 Flow Rate 98.9 F 68 12 115/60 97 Room Air 3 04/23/24 16:55 04/23/24 17:25 04/23/24 17:25 04/23/24 17:25 04/23/24 17:25 04/23/24 16:00 04/23/24 16:50 Narrative Exam Physical Exam General: Awake and in no acute distress. Conversational and non-toxic appearing. HEENT: Normocephalic, atraumatic, mucous membranes moist. Heart: Regular rate and rhythm, no murmurs. Lungs: Clear to auscultation with no wheezing or crackles. Abdomen: Soft, nondistended, nontender, positive bowel sounds. ?No guarding or rebound tenderness. Neurologic: Alert and oriented x3, no gross neurological deficit, and patient able to move all 4 extremities. Extremities: No edema. Skin: Bilateral petechiae like-rash noted on bilateral legs. Discharge Plan Plan Patient condition on transfer: Stable Prescriptions/Referrals Prescriptions/Med Rec: No Action atorvastatin [Lipitor] 40 mg tablet 40 mg PO QDAY naproxen sodium [Aleve] 220 mg Tablet 220 mg PO Q12H PRN (Reason: back pain) loratadine [Claritin] 10 mg Tablet 10 mg PO QDAY Referrals: Bettina Mendiola MD [Primary Care Provider] - Patient/Caregiver Discharge Instructions Print Language: Hungarian Quality Discharge Quality Measures VTE prophylaxis
--- NOTE | 2024-04-23 18:14 | PC.CM ---
Addendum entered by Celina Benson RN 04/23/24 19:47: 1947 Called Med-surg charge nurse and informed about the transfer updates. Addendum entered by Celina Benson RN 04/23/24 19:43: 194 I made transfer packet and CD, it's on transfer nurses desk. Pending pt and dr. Webster. Informed house supp. Addendum entered by Celina Benson RN 04/23/24 19:43: 194 clinicals sent to [facility]. Addendum entered by Celina Benson RN 04/23/24 19:37: 1925 called [facility] TC again, spoke to [facility] and initiated the transfer. I informed her that per our gastroentrologist Dr. Jones, pt is accepted by Dr. Tao Nathan. She stated to fax clinicals. Addendum entered by Celina Benson RN 04/23/24 19:24: 1916 called [facility] to initiate the request. TC forwarded me to leave information with automated system and they will call back. 1909 Dr. Jones stated pt needs Gastroentrology services not IR services. Addendum entered by Celina Benson RN 04/23/24 19:04: [address] Jones that pt is accepted at [facility]. Accepting DrChandni is Dr. Tao Nathan/ director of endoscopy. Original Note: [address] Jones, he stated to give him some time. He is going to call [facility] and speak to his colleagues for transfer. 1800 received transfer orders via fax by Dr. Mitchell that pt has suspected small bowel bleed, needs to transfer pt to tertiary care for embolization at the source of bleeding.
[2024-04-23 22:58] LABS: Hematocrit 27.3 % (36.0-46.0); Hemoglobin 9.1 g/dL (12.0-16.0)
[2024-04-24] VITALS (15 sets, daily range): BP systolic 116–134; BP diastolic 63–70; PULSE 70–91; RESP 13–97; TEMP 36.4–36.6; O2SAT 92–95
[2024-04-24 06:16] LABS: Basophils # (Auto) 0.1 Thou/mm3 (0.0-0.2); Basophils % (Auto) 1 % (0-2.5); Eosinophils # (Auto) 0.2 Thou/mm3 (0.0-0.5); Eosinophils % (Auto) 2 % (0-10); Hematocrit 26.7 % (36.0-46.0); Immature Granulocytes % (Auto) 0 % (0-0); Immature Granulocytes Auto 0.02 Thou/mm3 (0.00-0.00); Lymphocytes # (Auto) 1.7 Thou/mm3 (1.0-4.8); Lymphocytes % (Auto) 24 % (10-50); Mean Corpuscular HGB Conc 33.7 g/dl (31.0-37.0); Mean Corpuscular Hemoglobin 33.1 pg (25.0-35.0); Mean Corpuscular Volume 98 fL (80-100); Monocytes # (Auto) 0.6 Thou/mm3 (0.0-0.8); Monocytes % (Auto) 8 % (0-12); Neutrophils # (Auto) 4.8 Thou/mm3 (1.8-7.7); Neutrophils % (Auto) 65 % (37-80); Nucleated Red Blood Cell % 0 /100 WBC (0); Platelet Count 183 Thou/mm3 (140-440); RDW Standard Deviation 45.6 fL (36.4-46.3); Red Blood Count 2.72 Miln/mm3 (4.00-5.20); White Blood Count 7.4 Thou/mm3 (3.6-11.0)
[2024-04-24 06:54] LABS: Alanine Aminotransferase 17 U/L (10-49); Albumin, Serum 3.3 gm/dL (3.4-4.8); Albumin/Globulin Ratio 1.7 (1.2-2.2); Alkaline Phosphatase 105 U/L (46-116); Anion Gap 7 (7-16); Aspartate Amino Transferase 22 U/L (0-34); BUN/Creatinine Ratio 14 Ratio (12-20); Bilirubin,Total 0.5 mg/dL (0.3-1.2); Blood Urea Nitrogen 11 mg/dL (9-23); Calcium 8.6 mg/dL (8.3-10.6); Calcium (Corrected) 9.2 mg/dL (8.5-10.1); Carbon Dioxide 26.3 mMol/L (20.0-31.0); Chloride 107 mMol/L (98-107); Creatinine (Component) 0.8 mg/dL (0.6-1.3); Estimated Creatinine Clearance 70.4 mL/min (>60); Glucose 96 mg/dL (74-106); Osmolality,Calculated 278 (275-295); Potassium 3.5 mMol/L (3.4-5.1); Sodium 140 mMol/L (136-145); Total Protein 5.3 gm/dL (5.7-8.2); eGFR > 60 See Note
--- NOTE | 2024-04-24 08:33 | PC.CC ---
Addendum entered by Melida Perez RN 04/24/24 10:13: Transfer back agreement signed and faxed back to [facility] Addendum entered by Melida Perez RN 04/24/24 09:28: Charly from [facility] called at this time and states Dr. Snyder has accepted the patient medically to the [facility], no bed assigned at this time, transfer back agreement must be signed and faxed back first, Charly phone number is [phone] option 3 Original Note: Spoke to Roberto Carlos at [facility] financial department and answered questions, he said we are good to move forward and if pt is medically accepted the transfer center will call back.
--- NOTE | 2024-04-24 09:09 | PC.NURSE ---
PT. has 140HR BEEN NOTIFIED
--- NOTE | 2024-04-24 09:12 | PC.NURSE ---
pT. HAS 2 BLOODY STOOLD IN 30 MINUTES MD BEEN NOTIFIED , PER MD THE WILL ORDER THE H&H STAT
[2024-04-24 09:45] LABS: Hematocrit 27.7 % (36.0-46.0); Hemoglobin 9.1 g/dL (12.0-16.0)
[2024-04-24] MEDS: PANTOPRAZOLE INJ 40 MG VIAL IVP ×2 (09:55→20:37)
--- NOTE | 2024-04-24 11:46 | ESDS_ITS ---
<Statement entered by Uzair Kaufman MD - 05/09/24 16:10> I reviewed above note and agree with findings and plans. I have also personally examined the patient with medicine team and went over assessment and plan with medical team including health information internship and resident physician. Documented by User: Erasmo Whitehead MD 04/24/24 16:32 Addendum Discharge Addendum Date of report being addended: 04/24/24 Narrative: Patient seen today at the bedside found awake, alert, orientedx 3. No overnight events noted. Vital signs stable at this time. Labs at this time significant for Hg of 9.0. Patient reported 2x bloody movements in the am, repeated H&H found to be 9.1. No need for transfusions at this time. Patient is accepted at [facility] for transfer, pending bed availability at this time. Case discussed with my senior Dr. Zeng PGY-[address] Mandeep Whitehead MD PGY-1 Documented by User: Carmella Zeng MD 04/24/24 17:06 Addendum Discharge Addendum Narrative: Patient seen today at the bedside found awake, alert, orientedx 3. No overnight events noted. Vital signs stable at this time. Labs at this time significant for Hg of 9.0. Patient reported 2x bloody movements in the am, repeated H&H found to be 9.1. No need for transfusions at this time. Patient is accepted at [facility] for transfer, pending bed availability at this time. Case discussed with my senior Dr. Zeng PGY-[address] Mandeep Whitehead MD PGY-1 Senior resident attestation: I discussed with and supervised the health information internship physician who took care of this patient. I personally saw and examined the patient and discussed the assessment and plan with the entire medicine team, including my attending Dr. Kaufman , I agree with the assessment and plan as documented above. Patient evaluated bedside, concerned about 2 episodes of bloody bowel movements this morning, clotted, dark red blood in the toilet bowl, staining the toilet bowl red, likely secondary to small bowel bleed as well as diverticular bleed. Hemoglobin this morning 9.0, on repeat blood draw hemoglobin 9.1. 1 PRBC in hand, currently patient is asymptomatic, heart rate in the 70s to 80s per minute, blood pressure stable. Continue to monitor H&H daily. Pending transfer to [facility], already accepted, pending bed availability. Will consider blood transfusion, if patient becomes symptomatic despite relatively stable hemoglobin levels. Patient reported medication history of NSAIDs / Aleve for the past 2 weeks. Denied having epigastric abdominal pain. Also noted, staghorn calculus in the kidney, patient denied having any urinary symptoms/dysuria or flank pain. No evidence of UTI/pyonephritis at the moment. Continue to monitor vitals and H&H. MD Azucena PGY2
--- NOTE | 2024-04-24 16:32 | ESPR_ITS ---
<Statement entered by Uzair Kaufman MD - 05/09/24 16:10> I reviewed above note and agree with findings and plans. I have also personally examined the patient with medicine team and went over assessment and plan with medical team including architecture internship and resident physician. Documentation for date of: 04/24/24 Subjective Subjective Interval history: Patient seen today at the bedside found awake, alert, orientedx 3. No overnight events noted. Vital signs stable at this time. Labs at this time significant for Hg of 9.0. Patient reported 2x bloody movements in the am, repeated H&H found to be 9.1. No need for transfusions at this time. Patient is accepted at [facility] for transfer, pending bed availability at this time. Exam Vital Signs Temp Pulse Resp BP Pulse Ox O2 Del Method O2 Flow Rate 97.5 F 72 18 121/67 95 Room Air 3 04/24/24 15:26 04/24/24 15:26 04/24/24 15:26 04/24/24 15:26 04/24/24 15:26 04/24/24 15:26 04/23/24 16:50 Narrative Exam Physical Exam GENERAL: NAD, NC/AT, responsive/cooperative. AAOx3 HEENT: Moist mucosa. Eyes open, symmetrical, & clear CARDIO: No chest pain on palpation. Heart RRR, no obvious murmurs PULM: No noted coughing/dyspnea. Lungs CTA B/L, no R/W/R GI: Abdomen soft, nondistended, no pain on palpation. BSx4 URO/MICROBIOLOGY LAB ASSISTANT:: No further abnormalities noted. Wan catheter SKIN/MSK/EXT: No wounds/rashes/edema/amputations, no pain on palpation. Pedal pulses present B/L NEURO: AAOx3, no focal neuro deficits Objective Labs 04/24/24 09:02 04/24/24 05:46 Labs: Laboratory Results - last 24 hr 04/23/24 04/24/24 04/24/24 22:21 05:46 09:02 WBC 7.4 RBC 2.72 L Hgb 9.1 L D 9.0 L 9.1 L Hct 27.3 L 26.7 L 27.7 L MCV 98 MCH 33.1 MCHC 33.7 RDW Std Deviation 45.6 Plt Count 183 Neut % (Auto) 65 Lymph % (Auto) 24 [place] % (Auto) 8 Eos % (Auto) 2 Baso % (Auto) 1 Neut # (Auto) 4.8 Lymph # (Auto) 1.7 [place] # (Auto) 0.6 Eos # (Auto) 0.2 Baso # (Auto) 0.1 Immature Gran # (Auto) 0.02 H Absolute Nucleated RBC 0.00 Immature Gran % 0 Nucleated RBC % 0 Sodium 140 Potassium 3.5 Chloride 107 Carbon Dioxide 26.3 Anion Gap 7 BUN 11 Creatinine 0.8 Estim Creat Clear Calc 70.4 eGFR > 60 BUN/Creatinine Ratio 14 Glucose 96 Calculated Osmolality 278 Calcium 8.6 Corrected Calcium 9.2 Total Bilirubin 0.5 AST 22 ALT 17 Alkaline Phosphatase 105 Total Protein 5.3 L Albumin 3.3 L Globulin 2.0 L Albumin/Globulin Ratio 1.7 Quality Measures Quality Measures VTE prophylaxis Advance care planning discussed with:: patient Assessment & Plan Assessment Current Active Medications: Generic Name Dose Route Start Last Admin Trade Name Freq PRN Reason Stop Dose Admin Acetaminophen 650 mg 04/22/24 12:09 Acetaminophen 325 Mg Tablet PO 05/22/24 12:08 Q6H PRN Pain and Fever >101.5 Ondansetron HCl 4 mg 04/22/24 12:09 Ondansetron Inj 2 Mg/Ml Inj 2 Ml IV 05/22/24 12:08 Q6H PRN NAUSEA OR VOMITING Protocol Pantoprazole Sodium 40 mg 04/22/24 21:00 04/24/24 09:55 Pantoprazole Inj 40 Mg Vial IVP 05/22/24 20:59 40 mg Q12HR VALARIE Administration Sennosides 1 tab 04/22/24 12:09 Senna Tablet PO 05/22/24 12:08 QDAY PRN constipation Protocol Plan 73 y/o F with PMHx of hyperlipidemia and staghorn calculi who presented to [facility] with a chief complaint of bright red blood per rectum. Patient admitted for lower GI bleed workup. # Lower GI bleed # Hematochezia Differential diagnoses: Diverticular bleed, hemorrhoids, AV malformation, low suspicion of CA. Patient complains of painless bright red blood per rectum for the last 2 days, denies any diarrhea, constipation, abdominal pain and discomfort. Of note patient had colonoscopy about less than 1 year showed a single polyp which was removed. Rectal exam done by ED physician shows hemorrhoids and jay blood. Patient does have history of hemorrhoids, reports no similar episode in the past, CT abdomen pelvis does show colonic diverticulosis, increases suspicion for diverticular bleeding. Colonoscopy showed which was positive for hemorrhoids, multiple medium mouth diverticula with evidence of recent bleeding from diverticular opening and blood was noted throughout the colon all the way up to ileocecal valve and cecum. Ileocecal valve was intubated at the distal 20 cm of terminal ileum showed a lot of blood suggestive of small bowel bleed or upper GI bleed. Patient had an EGD which was significant for esophagitis in the lower third of esophagus, gastritis and no evidence was upper GI bleed was seen. Per GI recommendations patient will be transferred to a tertiary care center for further evaluation and management of small bowel bleed, patient will probably need interventional radiology to embolize the source of bleed. Patient is stable for transfer. Patient had today 2x bloody BM, repeat H&H showed Hg of 9.1 no need for transfusions at this time. -Monitor H&H closely -IV Protonix twice daily -Consulted GI, appreciate recommendations - Pending transfer to [facility] already accepted, pending bed availability # Left renal staghorn calculi CTAP shows Large left renal staghorn calculi, patient is asymptomatic denies any abdominal pain, no CVA tenderness, no hematuria. Patient follows with Dr. Lester outpatient, reports that renal calculi is chronic, reports seeing Dr. Lester about 2 weeks ago Patient reported that her has pancreatic cancer and she declined any intervention for the calculi for now. Case discussed with my senior Dr. Zeng PGY-[address] Mandeep Whitehead MD PGY-1 Disposition: [facility], pending transfer to [facility], already accepted Fluids: None Feeding: CLD Thrombo prophylaxis: SCDs Gastric Ulcer prophylaxis: Pantoprazole 40 mg IV BID CODE STATUS: Full code Senior resident attestation: I discussed with and supervised the architecture internship physician who took care of this patient. I personally saw and examined the patient and discussed the assessment and plan with the entire medicine team, including my attending Dr. Kaufman , I agree with the assessment and plan as documented above. Patient evaluated bedside, concerned about 2 episodes of bloody bowel movements this morning, clotted, dark red blood in the toilet bowl, staining the toilet bowl red, likely secondary to small bowel bleed as well as diverticular bleed. Hemoglobin this morning 9.0, on repeat blood draw hemoglobin 9.1. 1 PRBC in hand, currently patient is asymptomatic, heart rate in the 70s to 80s per minute, blood pressure stable. Continue to monitor H&H daily. Pending transfer to [facility], already accepted, pending bed availability. Will consider blood transfusion, if patient becomes symptomatic despite relatively stable hemoglobin levels. Patient reported medication history of NSAIDs / Aleve for the past 2 weeks. Denied having epigastric abdominal pain. Also noted, staghorn calculus in the kidney, patient denied having any urinary symptoms/dysuria or flank pain. No evidence of UTI/pyonephritis at the moment. Continue to monitor vitals and H&H. MD Azucena PGY2
--- NOTE | 2024-04-24 22:25 | PD.IMPROG ---
Documentation for date of: 04/24/24 Subjective Subjective Interval history: Spoke with Dr. Nathan Director of endoscopy at [facility] Patient accepted in transfer awaiting for a bed Patient has a small bowel bleed Exam Vital Signs Temp Pulse Resp BP Pulse Ox O2 Del Method O2 Flow Rate 97.5 F 83 16 129/70 93 L Room Air 3 04/24/24 20:00 04/24/24 21:42 04/24/24 21:42 04/24/24 20:00 04/24/24 20:00 04/24/24 20:00 04/23/24 16:50 Objective Labs 04/24/24 09:02 04/24/24 05:46 Labs: Laboratory Results - last 24 hr 04/23/24 04/24/24 04/24/24 22:21 05:46 09:02 WBC 7.4 RBC 2.72 L Hgb 9.1 L D 9.0 L 9.1 L Hct 27.3 L 26.7 L 27.7 L MCV 98 MCH 33.1 MCHC 33.7 RDW Std Deviation 45.6 Plt Count 183 Neut % (Auto) 65 Lymph % (Auto) 24 [place] % (Auto) 8 Eos % (Auto) 2 Baso % (Auto) 1 Neut # (Auto) 4.8 Lymph # (Auto) 1.7 [place] # (Auto) 0.6 Eos # (Auto) 0.2 Baso # (Auto) 0.1 Immature Gran # (Auto) 0.02 H Absolute Nucleated RBC 0.00 Immature Gran % 0 Nucleated RBC % 0 Sodium 140 Potassium 3.5 Chloride 107 Carbon Dioxide 26.3 Anion Gap 7 BUN 11 Creatinine 0.8 Estim Creat Clear Calc 70.4 eGFR > 60 BUN/Creatinine Ratio 14 Glucose 96 Calculated Osmolality 278 Calcium 8.6 Corrected Calcium 9.2 Total Bilirubin 0.5 AST 22 ALT 17 Alkaline Phosphatase 105 Total Protein 5.3 L Albumin 3.3 L Globulin 2.0 L Albumin/Globulin Ratio 1.7 Impressions Impression: # Small bowel bleed Waiting bed at [facility] Assessment & Plan A&P Narrative # Hematochezia with the clinical presentation is most likely a diverticular bleed Suggestions No reaction to colonoscopy Lets see how she does over the next 24 hours Serial CBC Clear liquid diet If patient continues to bleed will need a repeat colonoscopy and possible nuclear medicine GI bleeding scan Avoid NSAIDs Will follow the patient Time Spent With Patient Time: Total time spent is greater than 50% in coordination of care (as documented) at patient's floor/unit and/or counseling patient:
[2024-04-25] VITALS (11 sets, daily range): BP systolic 99–127; BP diastolic 51–83; PULSE 69–96; RESP 13–19; TEMP 36.6–36.9; O2SAT 92–97
[2024-04-25 06:04] LABS: Basophils % (Auto) 1 % (0-2.5); Eosinophils # (Auto) 0.2 Thou/mm3 (0.0-0.5); Eosinophils % (Auto) 4 % (0-10); Hematocrit 24.2 % (36.0-46.0); Immature Granulocytes % (Auto) 0 % (0-0); Immature Granulocytes Auto 0.02 Thou/mm3 (0.00-0.00); Lymphocytes # (Auto) 1.7 Thou/mm3 (1.0-4.8); Lymphocytes % (Auto) 27 % (10-50); Mean Corpuscular HGB Conc 33.9 g/dl (31.0-37.0); Mean Corpuscular Hemoglobin 33.5 pg (25.0-35.0); Mean Corpuscular Volume 99 fL (80-100); Monocytes # (Auto) 0.5 Thou/mm3 (0.0-0.8); Monocytes % (Auto) 9 % (0-12); Neutrophils # (Auto) 3.7 Thou/mm3 (1.8-7.7); Neutrophils % (Auto) 60 % (37-80); Nucleated Red Blood Cell % 0 /100 WBC (0); Platelet Count 156 Thou/mm3 (140-440); RDW Standard Deviation 45.7 fL (36.4-46.3); Red Blood Count 2.45 Miln/mm3 (4.00-5.20); White Blood Count 6.2 Thou/mm3 (3.6-11.0)
[2024-04-25 06:18] LABS: Hemoglobin 8.2 g/dL (12.0-16.0)
[2024-04-25 06:43] LABS: Alanine Aminotransferase 13 U/L (10-49); Albumin, Serum 3.2 gm/dL (3.4-4.8); Albumin/Globulin Ratio 1.8 (1.2-2.2); Alkaline Phosphatase 94 U/L (46-116); Anion Gap 7 (7-16); Aspartate Amino Transferase 21 U/L (0-34); BUN/Creatinine Ratio 13 Ratio (12-20); Bilirubin,Total 0.4 mg/dL (0.3-1.2); Blood Urea Nitrogen 9 mg/dL (9-23); Calcium 8.5 mg/dL (8.3-10.6); Calcium (Corrected) 9.1 mg/dL (8.5-10.1); Chloride 108 mMol/L (98-107); Creatinine (Component) 0.7 mg/dL (0.6-1.3); Estimated Creatinine Clearance 80.5 mL/min (>60); Globulin 1.8 gm/dL (2.3-3.5); Glucose 100 mg/dL (74-106); Magnesium 2.1 mg/dL (1.6-2.6); Osmolality,Calculated 281 (275-295); Potassium 3.6 mMol/L (3.4-5.1); Sodium 142 mMol/L (136-145); eGFR > 60 See Note
[2024-04-25] MEDS: PANTOPRAZOLE INJ 40 MG VIAL IVP ×2 (08:26→21:19)
--- NOTE | 2024-04-25 09:30 | PC.NURSE ---
Patient had medium/large sized BM with blood in stool. Resident team rounded on patient and was able to observe stool before discarding. Repeat H&H scheduled for 1400. Patient awaiting transfer at this time. Updated patient on plan of care. Will continue to monitor.
--- NOTE | 2024-04-25 13:47 | ESPR_ITS ---
<Statement entered by Uzair Kaufman MD - 05/01/24 12:41> I reviewed above note and agree with findings and plans. I have also personally examined the patient with medicine team and went over assessment and plan with medical team including internal grinding machine operator and resident physician. <Statement entered by Beth Alvarenga MD - 04/26/24 18:42> Patient was seen and examined at bedside. And agree on the assessment and plan of this patient. - Patient's plan and care discussed with my attending, Dr. Mandeep Alvarenga MD Internal Medicine PGY-2 Documentation for date of: 04/25/24 Subjective Subjective Interval history: Patient denies chest pain, abdominal pain, lightheadedness, weakness. She expresses concern for her heart rate. She reports her heart rate increases to 130 when she stands up and is active. otherwise it has been in the 80s. Patient reports large bloody BM with clots this morning. Exam Vital Signs Temp Pulse Resp BP Pulse Ox O2 Del Method O2 Flow Rate 98.3 F 90 19 113/67 95 Room Air 3 04/25/24 11:24 04/25/24 11:24 04/25/24 11:24 04/25/24 11:24 04/25/24 11:24 04/25/24 11:24 04/23/24 16:50 Narrative Exam General: Well appearing, well nourished, in no distress Ambulating without difficulty. HEENT: Normocephalic, atraumatic, conjunctiva clear, sclera non-icteric, EOM intact, PERRL, Heart: Regular rate and rhythm, no murmur or gallop Lungs: Clear to auscultation and percussion Abdomen: soft, nontender Extremities: No amputations or deformities, cyanosis, edema or varicosities, peripheral pulses intact Neurologic: Moves all extremities spontaneously, A&Ox3 Psychiatric: Cooperative, normal mood and affect. Objective Labs 04/25/24 14:12 04/25/24 05:17 Labs: Laboratory Results - last 24 hr 04/25/24 05:17 WBC 6.2 RBC 2.45 L Hgb 8.2 L Hct 24.2 L MCV 99 MCH 33.5 MCHC 33.9 RDW Std Deviation 45.7 Plt Count 156 Neut % (Auto) 60 Lymph % (Auto) 27 [place] % (Auto) 9 Eos % (Auto) 4 Baso % (Auto) 1 Neut # (Auto) 3.7 Lymph # (Auto) 1.7 [place] # (Auto) 0.5 Eos # (Auto) 0.2 Baso # (Auto) 0.0 Immature Gran # (Auto) 0.02 H Absolute Nucleated RBC 0.00 Immature Gran % 0 Nucleated RBC % 0 Sodium 142 Potassium 3.6 Chloride 108 H Carbon Dioxide 27.0 Anion Gap 7 BUN 9 Creatinine 0.7 Estim Creat Clear Calc 80.5 eGFR > 60 BUN/Creatinine Ratio 13 Glucose 100 Calculated Osmolality 281 Calcium 8.5 Corrected Calcium 9.1 Phosphorus 4.0 Magnesium 2.1 Total Bilirubin 0.4 AST 21 ALT 13 Alkaline Phosphatase 94 Total Protein 5.0 L Albumin 3.2 L Globulin 1.8 L Albumin/Globulin Ratio 1.8 Quality Measures Quality Measures VTE prophylaxis Advance care planning discussed with:: patient Assessment & Plan Assessment Current Active Medications: Generic Name Dose Route Start Last Admin Trade Name Freq PRN Reason Stop Dose Admin Acetaminophen 650 mg 04/22/24 12:09 Acetaminophen 325 Mg Tablet PO 05/22/24 12:08 Q6H PRN Pain and Fever >101.5 Ondansetron HCl 4 mg 04/22/24 12:09 Ondansetron Inj 2 Mg/Ml Inj 2 Ml IV 05/22/24 12:08 Q6H PRN NAUSEA OR VOMITING Protocol Pantoprazole Sodium 40 mg 04/22/24 21:00 04/25/24 08:26 Pantoprazole Inj 40 Mg Vial IVP 05/22/24 20:59 40 mg Q12HR VALARIE Administration Sennosides 1 tab 04/22/24 12:09 Senna Tablet PO 05/22/24 12:08 QDAY PRN constipation Protocol Plan Plan 73 y/o F with PMHx of hyperlipidemia and staghorn calculi who presented to [facility] with a chief complaint of bright red blood per rectum. Patient admitted for lower GI bleed workup. # Lower GI bleed # Hematochezia Differential diagnoses: Diverticular bleed, hemorrhoids, AV malformation, low suspicion of CA. Patient complains of painless bright red blood per rectum for the last 2 days, denies any diarrhea, constipation, abdominal pain and discomfort. Of note patient had colonoscopy about less than 1 year showed a single polyp which was removed. Rectal exam done by ED physician shows hemorrhoids and jay blood. Patient does have history of hemorrhoids, reports no similar episode in the past, CT abdomen pelvis does show colonic diverticulosis, increases suspicion for diverticular bleeding. Colonoscopy showed which was positive for hemorrhoids, multiple medium mouth diverticula with evidence of recent bleeding from diverticular opening and blood was noted throughout the colon all the way up to ileocecal valve and cecum. Ileocecal valve was intubated at the distal 20 cm of terminal ileum showed a lot of blood suggestive of small bowel bleed or upper GI bleed. Patient had an EGD which was significant for esophagitis in the lower third of esophagus, gastritis and no evidence was upper GI bleed was seen. Per GI recommendations patient will be transferred to a tertiary care center for further evaluation and management of small bowel bleed, patient will probably need interventional radiology to embolize the source of bleed. Patient is stable for transfer. Hgb 8.2->9 today, 1 BM of bloody stool -Monitor H&H closely -IV Protonix twice daily -Consulted GI, appreciate recommendations - Pending transfer to [facility] already accepted, pending bed availability # Left renal staghorn calculi CTAP shows Large left renal staghorn calculi, patient is asymptomatic denies any abdominal pain, no CVA tenderness, no hematuria. Patient follows with Dr. Lester outpatient, reports that renal calculi is chronic, reports seeing Dr. Lester about 2 weeks ago #Asymptomatic Bacteriuria UA positive for leukocyte esterase, WBC 1 culture grew E.coli Denies dysuria, increased frequency, chronic UTIs No abx indicated at this time. Disposition: [facility], pending transfer to [facility], already accepted Fluids: None Feeding: CLD Thrombo prophylaxis: SCDs Gastric Ulcer prophylaxis: Pantoprazole 40 mg IV BID CODE STATUS: Full code The patient's plan was discussed with attending Dr. Kaufman and senior residents Dr. Colette Rothman, DO PGY1 Internal Medicine
[2024-04-25 14:30] LABS: Hematocrit 27.2 % (36.0-46.0)
--- NOTE | 2024-04-25 14:38 | PC.SS ---
Rounding note: patient is pending [facility] transfer to [facility].
--- NOTE | 2024-04-25 15:13 | PC.CM ---
1513 called [facility] pt placement at #[phone], spoke to Wayne to get update. She stated they are at capacity and still waiting for bed.
--- NOTE | 2024-04-25 20:19 | ESPR_ITS ---
Documentation for date of: 04/25/24 Subjective Subjective Interval history: Hemoglobin 9.0 Bleeding per rectum has slowed down Exam Vital Signs Temp Pulse Resp BP Pulse Ox O2 Del Method O2 Flow Rate 98.0 F 95 17 105/83 95 Room Air 3 04/25/24 16:00 04/25/24 16:00 04/25/24 16:00 04/25/24 16:00 04/25/24 16:00 04/25/24 16:00 04/23/24 16:50 Objective Labs 04/25/24 14:12 04/25/24 05:17 Labs: Laboratory Results - last 24 hr 04/25/24 04/25/24 05:17 14:12 WBC 6.2 RBC 2.45 L Hgb 8.2 L 9.0 L Hct 24.2 L 27.2 L MCV 99 MCH 33.5 MCHC 33.9 RDW Std Deviation 45.7 Plt Count 156 Neut % (Auto) 60 Lymph % (Auto) 27 [place] % (Auto) 9 Eos % (Auto) 4 Baso % (Auto) 1 Neut # (Auto) 3.7 Lymph # (Auto) 1.7 [place] # (Auto) 0.5 Eos # (Auto) 0.2 Baso # (Auto) 0.0 Immature Gran # (Auto) 0.02 H Absolute Nucleated RBC 0.00 Immature Gran % 0 Nucleated RBC % 0 Sodium 142 Potassium 3.6 Chloride 108 H Carbon Dioxide 27.0 Anion Gap 7 BUN 9 Creatinine 0.7 Estim Creat Clear Calc 80.5 eGFR > 60 BUN/Creatinine Ratio 13 Glucose 100 Calculated Osmolality 281 Calcium 8.5 Corrected Calcium 9.1 Phosphorus 4.0 Magnesium 2.1 Total Bilirubin 0.4 AST 21 ALT 13 Alkaline Phosphatase 94 Total Protein 5.0 L Albumin 3.2 L Globulin 1.8 L Albumin/Globulin Ratio 1.8 Impressions Impression: # Small bowel bleed # Acute posthemorrhagic anemia Continue to monitor CBC and waiting bed at [facility] Assessment & Plan A&P Narrative # Hematochezia with the clinical presentation is most likely a diverticular bleed Suggestions No reaction to colonoscopy Lets see how she does over the next 24 hours Serial CBC Clear liquid diet If patient continues to bleed will need a repeat colonoscopy and possible nuclear medicine GI bleeding scan Avoid NSAIDs Will follow the patient Time Spent With Patient Time: Total time spent is greater than 50% in coordination of care (as documented) at patient's floor/unit and/or counseling patient:
[2024-04-26] VITALS (9 sets, daily range): BP systolic 116–132; BP diastolic 58–71; PULSE 72–95; RESP 12–18; TEMP 36.4–36.9; O2SAT 93–96
[2024-04-26 06:08] LABS: Basophils % (Auto) 1 % (0-2.5); Eosinophils # (Auto) 0.2 Thou/mm3 (0.0-0.5); Eosinophils % (Auto) 4 % (0-10); Hematocrit 25.3 % (36.0-46.0); Immature Granulocytes % (Auto) 0 % (0-0); Immature Granulocytes Auto 0.01 Thou/mm3 (0.00-0.00); Lymphocytes # (Auto) 1.4 Thou/mm3 (1.0-4.8); Lymphocytes % (Auto) 26 % (10-50); Mean Corpuscular HGB Conc 32.8 g/dl (31.0-37.0); Mean Corpuscular Hemoglobin 32.7 pg (25.0-35.0); Mean Corpuscular Volume 100 fL (80-100); Monocytes # (Auto) 0.5 Thou/mm3 (0.0-0.8); Monocytes % (Auto) 10 % (0-12); Neutrophils # (Auto) 3.1 Thou/mm3 (1.8-7.7); Neutrophils % (Auto) 59 % (37-80); Nucleated Red Blood Cell % 0 /100 WBC (0); Platelet Count 171 Thou/mm3 (140-440); Red Blood Count 2.54 Miln/mm3 (4.00-5.20); White Blood Count 5.2 Thou/mm3 (3.6-11.0)
[2024-04-26 06:20] LABS: Hemoglobin 8.3 g/dL (12.0-16.0)
[2024-04-26 06:54] LABS: Alanine Aminotransferase 14 U/L (10-49); Albumin, Serum 3.2 gm/dL (3.4-4.8); Albumin/Globulin Ratio 1.6 (1.2-2.2); Alkaline Phosphatase 93 U/L (46-116); Anion Gap 7 (7-16); Aspartate Amino Transferase 17 U/L (0-34); BUN/Creatinine Ratio 9 Ratio (12-20); Bilirubin,Total 0.4 mg/dL (0.3-1.2); Blood Urea Nitrogen 6 mg/dL (9-23); Calcium 8.7 mg/dL (8.3-10.6); Calcium (Corrected) 9.3 mg/dL (8.5-10.1); Carbon Dioxide 26.8 mMol/L (20.0-31.0); Chloride 109 mMol/L (98-107); Creatinine (Component) 0.7 mg/dL (0.6-1.3); Estimated Creatinine Clearance 80.5 mL/min (>60); Glucose 98 mg/dL (74-106); Osmolality,Calculated 282 (275-295); Potassium 3.8 mMol/L (3.4-5.1); Sodium 143 mMol/L (136-145); Total Protein 5.2 gm/dL (5.7-8.2); eGFR > 60 See Note
[2024-04-26] MEDS: PANTOPRAZOLE INJ 40 MG VIAL IVP ×2 (08:50→20:48)
--- NOTE | 2024-04-26 09:29 | ESPR_ITS ---
<Statement entered by Uzair Kaufman MD - 05/09/24 16:10> I reviewed above note and agree with findings and plans. I have also personally examined the patient with medicine team and went over assessment and plan with medical team including general internist and resident physician. Documentation for date of: 04/26/24 Subjective Subjective Interval history: Patient denies dizziness, abdominal pain, shortness of breath, chest pain. States that she is tolerating clear liquid diet well. She is trying to avoid acidic foods so she is mostly just drinking broth. She denies feeling hungry. Exam Vital Signs Temp Pulse Resp BP Pulse Ox O2 Del Method O2 Flow Rate 97.9 F 88 17 118/58 L 94 L Room Air 3 04/26/24 07:30 04/26/24 07:30 04/26/24 07:30 04/26/24 07:30 04/26/24 07:30 04/26/24 07:30 04/23/24 16:50 Narrative Exam General: Well appearing, well nourished, in no distress, ambulating without difficulty. HEENT: Normocephalic, atraumatic, conjunctiva clear, sclera non-icteric, EOM intact, PERRL, Heart: Regular rate and rhythm, no murmur or gallop Lungs: Clear to auscultation and percussion Abdomen: soft, nontender Extremities: No amputations or deformities, cyanosis, edema or varicosities, peripheral pulses intact Neurologic: Moves all extremities spontaneously, A&Ox3 Psychiatric: Cooperative, normal mood and affect. Objective Labs 04/27/24 05:56 04/27/24 05:56 Labs: Laboratory Results - last 24 hr 04/23/24 04/25/24 04/26/24 09:13 14:12 05:45 WBC 5.2 RBC 2.54 L Hgb 9.0 L 8.3 L Hct 27.2 L 25.3 L MCV 100 MCH 32.7 MCHC 32.8 RDW Std Deviation 47.0 H Plt Count 171 Neut % (Auto) 59 Lymph % (Auto) 26 [place] % (Auto) 10 Eos % (Auto) 4 Baso % (Auto) 1 Neut # (Auto) 3.1 Lymph # (Auto) 1.4 [place] # (Auto) 0.5 Eos # (Auto) 0.2 Baso # (Auto) 0.0 Immature Gran # (Auto) 0.01 H Absolute Nucleated RBC 0.00 Immature Gran % 0 Nucleated RBC % 0 Sodium 143 Potassium 3.8 Chloride 109 H Carbon Dioxide 26.8 Anion Gap 7 BUN 6 L Creatinine 0.7 Estim Creat Clear Calc 80.5 eGFR > 60 BUN/Creatinine Ratio 9 L Glucose 98 Calculated Osmolality 282 Calcium 8.7 Corrected Calcium 9.3 Phosphorus 4.0 Magnesium 2.0 Total Bilirubin 0.4 AST 17 ALT 14 Alkaline Phosphatase 93 Total Protein 5.2 L Albumin 3.2 L Globulin 2.0 L Albumin/Globulin Ratio 1.6 Crossmatch See Detail Quality Measures Quality Measures VTE prophylaxis Advance care planning discussed with:: patient Assessment & Plan Assessment Current Active Medications: Generic Name Dose Route Start Last Admin Trade Name Freq PRN Reason Stop Dose Admin Acetaminophen 650 mg 04/22/24 12:09 Acetaminophen 325 Mg Tablet PO 05/22/24 12:08 Q6H PRN Pain and Fever >101.5 Ondansetron HCl 4 mg 04/22/24 12:09 Ondansetron Inj 2 Mg/Ml Inj 2 Ml IV 05/22/24 12:08 Q6H PRN NAUSEA OR VOMITING Protocol Pantoprazole Sodium 40 mg 04/22/24 21:00 04/26/24 08:50 Pantoprazole Inj 40 Mg Vial IVP 05/22/24 20:59 40 mg Q12HR VALARIE Administration Sennosides 1 tab 04/22/24 12:09 Senna Tablet PO 05/22/24 12:08 QDAY PRN constipation Protocol Plan Plan 73 y/o F with PMHx of hyperlipidemia and staghorn calculi who presented to [facility] with a chief complaint of bright red blood per rectum. Patient admitted for lower GI bleed workup. # Lower GI bleed # Hematochezia Patient does have history of hemorrhoids, reports no similar episode in the past, CT abdomen pelvis does show colonic diverticulosis, increases suspicion for diverticular bleeding. Colonoscopy showed which was positive for hemorrhoids, multiple medium mouth diverticula with evidence of recent bleeding from diverticular opening and blood was noted throughout the colon all the way up to ileocecal valve and cecum. Ileocecal valve was intubated at the distal 20 cm of terminal ileum showed a lot of blood suggestive of small bowel bleed or upper GI bleed. Patient had an EGD which was significant for esophagitis in the lower third of esophagus, gastritis and no evidence was upper GI bleed was seen. Per GI recommendations patient will be transferred to a tertiary care center for further evaluation and management of small bowel/Diverticular bleed, patient will probably need interventional radiology to embolize the source of bleed. Patient is stable for transfer. Hgb -> 8.3 today, No BM with blood since 2pm yesterday -Monitor H&H closely -IV Protonix twice daily -Consulted GI, appreciate recommendations - Pending transfer to [facility] already accepted, pending bed availability # Left renal staghorn calculi CTAP shows Large left renal staghorn calculi, patient is asymptomatic denies any abdominal pain, no CVA tenderness, no hematuria. Patient follows with Dr. Lester outpatient, reports that renal calculi is chronic, reports seeing Dr. Lester about 2 weeks ago #Asymptomatic Bacteriuria UA positive for leukocyte esterase, WBC 1 culture grew E.coli Denies dysuria, increased frequency, chronic UTIs No abx indicated at this time. Disposition: [facility], pending transfer to [facility], already accepted Fluids: None Feeding: CLD Thrombo prophylaxis: SCDs Gastric Ulcer prophylaxis: Pantoprazole 40 mg IV BID CODE STATUS: Full code The patient's plan was discussed with attending Dr. Kaufman and senior residents Dr. Azucena Rothman DO PGY1 Internal Medicine Senior resident attestation: I discussed with and supervised the general internist physician who took care of this patient. I personally saw and examined the patient and discussed the assessment and plan with the entire medicine team, including my attending Dr. Kaufman , I agree with the assessment and plan as documented above. Patient evaluated bedside, no reported bloody bowel movements today, hemoglobin stable, vitals are stable. Patient is accepted at [facility], pending transfer/bed availability for possible interventional radiology embolization with possible small bowel bleed versus diverticular bleed. MD Azucena PGY2
--- NOTE | 2024-04-26 10:50 | PC.CM ---
Addendum entered by Harriett Roman RN 04/26/24 19:18: Pending bed at [facility]. Packet left of transfer nurses desk. Original Note: [address] [facility] pt placement at #[phone], spoke to Wayne to get update. She stated they are at capacity and still waiting for bed. I gave an update on patient and I provided the direct number to the floor.
[2024-04-26 14:22] LABS: Hematocrit 25.2 % (36.0-46.0)
[2024-04-26 14:41] LABS: Hemoglobin 8.4 g/dL (12.0-16.0)
--- NOTE | 2024-04-26 14:54 | PC.SS ---
Rounding note: patient is pending transfer. No current bed available at this time.
--- NOTE | 2024-04-26 21:36 | ESPR_ITS ---
Documentation for date of: 04/26/24 Subjective Subjective Interval history: Small bowel bleed with a drop in hemoglobin hematocrit Sent message to [facility] for the availability of the bed My accepting physician Dr. Nathan is trying Exam Vital Signs Temp Pulse Resp BP Pulse Ox O2 Del Method O2 Flow Rate 98.3 F 90 18 123/71 93 L Room Air 3 04/26/24 20:00 04/26/24 20:00 04/26/24 20:00 04/26/24 20:00 04/26/24 20:00 04/26/24 20:00 04/26/24 15:59 Objective Labs 04/26/24 14:05 04/26/24 05:45 Labs: Laboratory Results - last 24 hr 04/23/24 04/26/24 04/26/24 09:13 05:45 14:05 WBC 5.2 RBC 2.54 L Hgb 8.3 L 8.4 L Hct 25.3 L 25.2 L MCV 100 MCH 32.7 MCHC 32.8 RDW Std Deviation 47.0 H Plt Count 171 Neut % (Auto) 59 Lymph % (Auto) 26 [place] % (Auto) 10 Eos % (Auto) 4 Baso % (Auto) 1 Neut # (Auto) 3.1 Lymph # (Auto) 1.4 [place] # (Auto) 0.5 Eos # (Auto) 0.2 Baso # (Auto) 0.0 Immature Gran # (Auto) 0.01 H Absolute Nucleated RBC 0.00 Immature Gran % 0 Nucleated RBC % 0 Sodium 143 Potassium 3.8 Chloride 109 H Carbon Dioxide 26.8 Anion Gap 7 BUN 6 L Creatinine 0.7 Estim Creat Clear Calc 80.5 eGFR > 60 BUN/Creatinine Ratio 9 L Glucose 98 Calculated Osmolality 282 Calcium 8.7 Corrected Calcium 9.3 Phosphorus 4.0 Magnesium 2.0 Total Bilirubin 0.4 AST 17 ALT 14 Alkaline Phosphatase 93 Total Protein 5.2 L Albumin 3.2 L Globulin 2.0 L Albumin/Globulin Ratio 1.6 Crossmatch See Detail Impressions Impression: # Small bowel bleed # Acute posthemorrhagic anemia Continue current management Assessment & Plan A&P Narrative # Hematochezia with the clinical presentation is most likely a diverticular bleed Suggestions No reaction to colonoscopy Lets see how she does over the next 24 hours Serial CBC Clear liquid diet If patient continues to bleed will need a repeat colonoscopy and possible nuclear medicine GI bleeding scan Avoid NSAIDs Will follow the patient Time Spent With Patient Time: Total time spent is greater than 50% in coordination of care (as documented) at patient's floor/unit and/or counseling patient:
[2024-04-27] VITALS (7 sets, daily range): BP systolic 109–133; BP diastolic 64–73; PULSE 71–95; RESP 16–18; TEMP 36.6–37.1; O2SAT 94–99
[2024-04-27 06:12] LABS: Basophils % (Auto) 1 % (0-2.5); Eosinophils # (Auto) 0.2 Thou/mm3 (0.0-0.5); Eosinophils % (Auto) 4 % (0-10); Hematocrit 24.2 % (36.0-46.0); Immature Granulocytes % (Auto) 0 % (0-0); Immature Granulocytes Auto 0.01 Thou/mm3 (0.00-0.00); Lymphocytes # (Auto) 1.3 Thou/mm3 (1.0-4.8); Lymphocytes % (Auto) 27 % (10-50); Mean Corpuscular HGB Conc 33.5 g/dl (31.0-37.0); Mean Corpuscular Hemoglobin 32.9 pg (25.0-35.0); Mean Corpuscular Volume 98 fL (80-100); Monocytes # (Auto) 0.4 Thou/mm3 (0.0-0.8); Monocytes % (Auto) 8 % (0-12); Neutrophils # (Auto) 3.1 Thou/mm3 (1.8-7.7); Neutrophils % (Auto) 61 % (37-80); Nucleated Red Blood Cell % 0 /100 WBC (0); Platelet Count 157 Thou/mm3 (140-440); RDW Standard Deviation 45.8 fL (36.4-46.3); Red Blood Count 2.46 Miln/mm3 (4.00-5.20); White Blood Count 5.1 Thou/mm3 (3.6-11.0)
[2024-04-27 06:15] LABS: Hemoglobin 8.1 g/dL (12.0-16.0)
[2024-04-27 06:50] LABS: Alanine Aminotransferase 11 U/L (10-49); Albumin, Serum 3.2 gm/dL (3.4-4.8); Albumin/Globulin Ratio 1.7 (1.2-2.2); Alkaline Phosphatase 94 U/L (46-116); Anion Gap 6 (7-16); Aspartate Amino Transferase 14 U/L (0-34); BUN/Creatinine Ratio 9 Ratio (12-20); Bilirubin,Total 0.4 mg/dL (0.3-1.2); Blood Urea Nitrogen 6 mg/dL (9-23); Calcium 8.7 mg/dL (8.3-10.6); Calcium (Corrected) 9.3 mg/dL (8.5-10.1); Carbon Dioxide 26.6 mMol/L (20.0-31.0); Chloride 109 mMol/L (98-107); Creatinine (Component) 0.7 mg/dL (0.6-1.3); Estimated Creatinine Clearance 80.5 mL/min (>60); Globulin 1.9 gm/dL (2.3-3.5); Glucose 99 mg/dL (74-106); Osmolality,Calculated 280 (275-295); Potassium 3.6 mMol/L (3.4-5.1); Sodium 142 mMol/L (136-145); Total Protein 5.1 gm/dL (5.7-8.2); eGFR > 60 See Note
--- NOTE | 2024-04-27 08:15 | PC.CM ---
Addendum entered by Celina Benson RN 04/27/24 13:55: 1355 Received call from [facility], spoke to Natalya. She stated transfer request is declined due to capacity. Addendum entered by Celina Benson RN 04/27/24 13:52: 1352 face sheet faxed to [facility]. Addendum entered by Celina Benson RN 04/27/24 13:51: 1345 called [facility], spoke to Lay and initiated the transfer request. She stated to fax only face sheet and a nurse will call to get clinicals. Addendum entered by Celina Benson RN 04/27/24 13:43: 1342 received called from Lay at [facility] that transfer request is declined due to capacity. Addendum entered by Celina Benson RN 04/27/24 13:18: 1311 called [facility], spoke to Nevaeh and initiated the transfer request. 1304 pt is waiting for bed at [facility] for [address] now[address] Sp[address]. Jones and he is OK with me trying different hospital for transfer. I send clinicals to [facility] for transfer request. Original Note: 0815 called [facility] pt placement at #[phone], spoke to Wayne to get update. She stated still waiting for bed and call back in 5 hours to see if they have any discharges.
[2024-04-27] MEDS: PANTOPRAZOLE INJ 40 MG VIAL IVP ×2 (09:26→20:52)
--- NOTE | 2024-04-27 09:36 | ESPR_ITS ---
<Statement entered by Beth Alvarenga MD - 04/27/24 17:17> Patient was seen and examined at bedside. Hemoglobin stable at 8.4, Patient is tolerating clear liquid diet well. She reported that she has has blood clots in her stool today however she does not feel any dizziness or shortness of breath. Pulse rate of 81, blood pressure of 127/67. At this time her pending transfer to [facility], because were pending for bed the transfer nurse will initiate another transfer to [facility]. - Patient's plan and care discussed with my attending, Dr. Dutch Alvarenga MD Internal Medicine PGY-2 Documentation for date of: 04/27/24 Subjective Subjective Interval history: Patient reports that she noticed her HR increased when she was brushing her teeth and washing her face this morning in the 120s. Otherwise she has felt fine. She is tolerating her clear liquid diet. She reports two BM since yesterday which have bloody clots.Denies CP, SOB, dizziness. Exam Vital Signs Temp Pulse Resp BP Pulse Ox O2 Del Method O2 Flow Rate 98.0 F 81 18 127/67 94 L Room Air 3 04/27/24 07:52 04/27/24 07:52 04/27/24 07:52 04/27/24 07:52 04/27/24 07:52 04/27/24 07:52 04/27/24 07:52 Narrative Exam General: Well appearing, well nourished, in no distress, ambulating without difficulty. HEENT: Normocephalic, atraumatic, conjunctiva clear, sclera non-icteric, EOM intact, PERRL, Heart: Regular rate and rhythm, no murmur or gallop Lungs: Clear to auscultation and percussion Abdomen: soft, nontender Extremities: No amputations or deformities, cyanosis, edema or varicosities, peripheral pulses intact Neurologic: Moves all extremities spontaneously, A&Ox3 Psychiatric: Cooperative, normal mood and affect. Objective Labs 04/28/24 05:15 04/28/24 05:15 Labs: Laboratory Results - last 24 hr 04/26/24 04/27/24 14:05 05:56 WBC 5.1 RBC 2.46 L Hgb 8.4 L 8.1 L Hct 25.2 L 24.2 L MCV 98 MCH 32.9 MCHC 33.5 RDW Std Deviation 45.8 Plt Count 157 Neut % (Auto) 61 Lymph % (Auto) 27 [place] % (Auto) 8 Eos % (Auto) 4 Baso % (Auto) 1 Neut # (Auto) 3.1 Lymph # (Auto) 1.3 [place] # (Auto) 0.4 Eos # (Auto) 0.2 Baso # (Auto) 0.0 Immature Gran # (Auto) 0.01 H Absolute Nucleated RBC 0.00 Immature Gran % 0 Nucleated RBC % 0 Sodium 142 Potassium 3.6 Chloride 109 H Carbon Dioxide 26.6 Anion Gap 6 L BUN 6 L Creatinine 0.7 Estim Creat Clear Calc 80.5 eGFR > 60 BUN/Creatinine Ratio 9 L Glucose 99 Calculated Osmolality 280 Calcium 8.7 Corrected Calcium 9.3 Phosphorus 4.0 Magnesium 2.0 Total Bilirubin 0.4 AST 14 ALT 11 Alkaline Phosphatase 94 Total Protein 5.1 L Albumin 3.2 L Globulin 1.9 L Albumin/Globulin Ratio 1.7 Blood Type A Positive Antibody Screen NEGATIVE Blood Bank Wristband ID Yes Quality Measures Quality Measures VTE prophylaxis Advance care planning discussed with:: patient Assessment & Plan Assessment Current Active Medications: Generic Name Dose Route Start Last Admin Trade Name Freq PRN Reason Stop Dose Admin Acetaminophen 650 mg 04/22/24 12:09 Acetaminophen 325 Mg Tablet PO 05/22/24 12:08 Q6H PRN Pain and Fever >101.5 Ondansetron HCl 4 mg 04/22/24 12:09 Ondansetron Inj 2 Mg/Ml Inj 2 Ml IV 05/22/24 12:08 Q6H PRN NAUSEA OR VOMITING Protocol Pantoprazole Sodium 40 mg 04/22/24 21:00 04/27/24 09:26 Pantoprazole Inj 40 Mg Vial IVP 05/22/24 20:59 40 mg Q12HR VALARIE Administration Sennosides 1 tab 04/22/24 12:09 Senna Tablet PO 05/22/24 12:08 QDAY PRN constipation Protocol Plan Plan 73 y/o F with PMHx of hyperlipidemia and staghorn calculi who presented to [facility] with a chief complaint of bright red blood per rectum. Patient admitted for lower GI bleed workup. # Lower GI bleed # Hematochezia Patient does have history of hemorrhoids, reports no similar episode in the past, CT abdomen pelvis does show colonic diverticulosis, increases suspicion for diverticular bleeding. Colonoscopy showed which was positive for hemorrhoids, multiple medium mouth diverticula with evidence of recent bleeding from diverticular opening and blood was noted throughout the colon all the way up to ileocecal valve and cecum. Ileocecal valve was intubated at the distal 20 cm of terminal ileum showed a lot of blood suggestive of small bowel bleed or upper GI bleed. Patient had an EGD which was significant for esophagitis in the lower third of esophagus, gastritis and no evidence was upper GI bleed was seen. Per GI recommendations patient will be transferred to a tertiary care center for further evaluation and management of small bowel/Diverticular bleed, patient will probably need interventional radiology to embolize the source of bleed. Patient is stable for transfer. Hgb -> 8.1 today, Two BM with blood clots -Monitor H&H closely -IV Protonix twice daily -Consulted GI, appreciate recommendations - Pending transfer to [facility] already accepted, pending bed availability, we also broadened search to [facility] # Left renal staghorn calculi CTAP shows Large left renal staghorn calculi, patient is asymptomatic denies any abdominal pain, no CVA tenderness, no hematuria. Patient follows with Dr. Lester outpatient, reports that renal calculi is chronic, reports seeing Dr. Lester about 2 weeks ago #Asymptomatic Bacteriuria UA positive for leukocyte esterase, WBC 1 culture grew E.coli Denies dysuria, increased frequency, chronic UTIs No abx indicated at this time. Disposition: [facility], pending transfer to [facility], already accepted Fluids: None Feeding: CLD Thrombo prophylaxis: SCDs Gastric Ulcer prophylaxis: Pantoprazole 40 mg IV BID CODE STATUS: Full code The patient's plan was discussed with attending Dr. Judd and senior residents Dr. Zeng and Colette Rothman DO PGY1 Internal Medicine Attending Provider Attestation/Addendum I have discussed and was present for the essential components of the history, physical examination, diagnosis, and treatment plan with the resident. I agree with the patient's care as documented by the resident and amended herein by me. Harry Judd DO. Although this document has been carefully reviewed, there may still be some phonetic and other typographical errors. These errors are purely grammatical due to imperfections in the software program and should not be construed in any way to compromise the substance of the patient's medical care during this visit.
--- NOTE | 2024-04-27 15:08 | PC.SS ---
Rounding note: patient continues pending HLOC transfer.
[2024-04-27 16:19] LABS: Hematocrit 25.3 % (36.0-46.0)
[2024-04-27 16:27] LABS: Hemoglobin 8.4 g/dL (12.0-16.0)
--- NOTE | 2024-04-27 20:07 | ESPR_ITS ---
Documentation for date of: 04/27/24 Subjective Subjective Interval history: Patient evaluated Hemoglobin hematocrit 8.4 and 25.3 Still blood in the stool Spoke with the Chief of gastrointestinal endoscopy at [facility] Patient was #4 on the list of waiting for bed With his help patient is moved to #1 and the next bed available will be her bed and she will be transferred hopefully by tonight or tomorrow at the latest Exam Vital Signs Temp Pulse Resp BP Pulse Ox O2 Del Method O2 Flow Rate 98.6 F 95 18 111/73 99 Room Air 3 04/27/24 16:00 04/27/24 16:00 04/27/24 16:00 04/27/24 16:00 04/27/24 16:00 04/27/24 16:00 04/27/24 16:00 Objective Labs 04/27/24 15:39 04/27/24 05:56 Labs: Laboratory Results - last 24 hr 04/27/24 04/27/24 05:56 15:39 WBC 5.1 RBC 2.46 L Hgb 8.1 L 8.4 L Hct 24.2 L 25.3 L MCV 98 MCH 32.9 MCHC 33.5 RDW Std Deviation 45.8 Plt Count 157 Neut % (Auto) 61 Lymph % (Auto) 27 [place] % (Auto) 8 Eos % (Auto) 4 Baso % (Auto) 1 Neut # (Auto) 3.1 Lymph # (Auto) 1.3 [place] # (Auto) 0.4 Eos # (Auto) 0.2 Baso # (Auto) 0.0 Immature Gran # (Auto) 0.01 H Absolute Nucleated RBC 0.00 Immature Gran % 0 Nucleated RBC % 0 Sodium 142 Potassium 3.6 Chloride 109 H Carbon Dioxide 26.6 Anion Gap 6 L BUN 6 L Creatinine 0.7 Estim Creat Clear Calc 80.5 eGFR > 60 BUN/Creatinine Ratio 9 L Glucose 99 Calculated Osmolality 280 Calcium 8.7 Corrected Calcium 9.3 Phosphorus 4.0 Magnesium 2.0 Total Bilirubin 0.4 AST 14 ALT 11 Alkaline Phosphatase 94 Total Protein 5.1 L Albumin 3.2 L Globulin 1.9 L Albumin/Globulin Ratio 1.7 Blood Type A Positive Antibody Screen NEGATIVE Blood Bank Wristband ID Yes Impressions Impression: # Small bowel bleed Hopefully transfer later tonight or tomorrow to [facility] Assessment & Plan A&P Narrative # Hematochezia with the clinical presentation is most likely a diverticular bleed Suggestions No reaction to colonoscopy Lets see how she does over the next 24 hours Serial CBC Clear liquid diet If patient continues to bleed will need a repeat colonoscopy and possible nuclear medicine GI bleeding scan Avoid NSAIDs Will follow the patient Time Spent With Patient Time: Total time spent is greater than 50% in coordination of care (as documented) at patient's floor/unit and/or counseling patient:
[2024-04-27 22:03] LABS: Basophils % (Auto) 0 % (0-2.5); Eosinophils # (Auto) 0.1 Thou/mm3 (0.0-0.5); Eosinophils % (Auto) 2 % (0-10); Hematocrit 24.3 % (36.0-46.0); Immature Granulocytes % (Auto) 0 % (0-0); Immature Granulocytes Auto 0.01 Thou/mm3 (0.00-0.00); Lymphocytes # (Auto) 1.7 Thou/mm3 (1.0-4.8); Lymphocytes % (Auto) 28 % (10-50); Mean Corpuscular HGB Conc 33.3 g/dl (31.0-37.0); Mean Corpuscular Hemoglobin 33.1 pg (25.0-35.0); Mean Corpuscular Volume 99 fL (80-100); Monocytes # (Auto) 0.6 Thou/mm3 (0.0-0.8); Monocytes % (Auto) 10 % (0-12); Neutrophils # (Auto) 3.5 Thou/mm3 (1.8-7.7); Neutrophils % (Auto) 59 % (37-80); Nucleated Red Blood Cell % 0 /100 WBC (0); Platelet Count 196 Thou/mm3 (140-440); RDW Standard Deviation 46.8 fL (36.4-46.3); Red Blood Count 2.45 Miln/mm3 (4.00-5.20); White Blood Count 5.9 Thou/mm3 (3.6-11.0)
[2024-04-27 22:10] LABS: Hemoglobin 8.1 g/dL (12.0-16.0)
[2024-04-28] VITALS (9 sets, daily range): BP systolic 112–129; BP diastolic 62–76; PULSE 68–99; RESP 16–17; TEMP 36.8–37.2; O2SAT 95–97
[2024-04-28 06:10] LABS: Basophils % (Auto) 0 % (0-2.5); Eosinophils # (Auto) 0.2 Thou/mm3 (0.0-0.5); Eosinophils % (Auto) 4 % (0-10); Hematocrit 23.1 % (36.0-46.0); Immature Granulocytes % (Auto) 0 % (0-0); Immature Granulocytes Auto 0.01 Thou/mm3 (0.00-0.00); Lymphocytes # (Auto) 1.4 Thou/mm3 (1.0-4.8); Lymphocytes % (Auto) 29 % (10-50); Mean Corpuscular HGB Conc 33.8 g/dl (31.0-37.0); Mean Corpuscular Hemoglobin 33.6 pg (25.0-35.0); Mean Corpuscular Volume 100 fL (80-100); Monocytes # (Auto) 0.5 Thou/mm3 (0.0-0.8); Monocytes % (Auto) 10 % (0-12); Neutrophils # (Auto) 2.8 Thou/mm3 (1.8-7.7); Neutrophils % (Auto) 57 % (37-80); Nucleated Red Blood Cell % 0 /100 WBC (0); Platelet Count 183 Thou/mm3 (140-440); RDW Standard Deviation 47.5 fL (36.4-46.3); Red Blood Count 2.32 Miln/mm3 (4.00-5.20)
[2024-04-28 06:11] LABS: Hemoglobin 7.8 g/dL (12.0-16.0)
[2024-04-28 06:40] LABS: Alanine Aminotransferase 11 U/L (10-49); Albumin, Serum 3.2 gm/dL (3.4-4.8); Albumin/Globulin Ratio 1.7 (1.2-2.2); Alkaline Phosphatase 92 U/L (46-116); Anion Gap 5 (7-16); Aspartate Amino Transferase 19 U/L (0-34); BUN/Creatinine Ratio 10 Ratio (12-20); Bilirubin,Total 0.4 mg/dL (0.3-1.2); Blood Urea Nitrogen 7 mg/dL (9-23); Calcium 8.4 mg/dL (8.3-10.6); Carbon Dioxide 27.9 mMol/L (20.0-31.0); Chloride 109 mMol/L (98-107); Creatinine (Component) 0.7 mg/dL (0.6-1.3); Estimated Creatinine Clearance 80.5 mL/min (>60); Globulin 1.9 gm/dL (2.3-3.5); Glucose 96 mg/dL (74-106); Magnesium 2.2 mg/dL (1.6-2.6); Osmolality,Calculated 281 (275-295); Phosphorous 4.2 mg/dL (2.4-5.1); Potassium 3.6 mMol/L (3.4-5.1); Sodium 142 mMol/L (136-145); Total Protein 5.1 gm/dL (5.7-8.2); eGFR > 60 See Note
[2024-04-28] MEDS: PANTOPRAZOLE INJ 40 MG VIAL IVP ×2 (08:44→20:18)
--- NOTE | 2024-04-28 13:14 | ESPR_ITS ---
<Statement entered by Beth Alvarenga MD - 04/28/24 16:12> Patient was seen and examined at bedside she denied any history of nausea or vomiting however she reported that her lower GI bleed has slowed down and it is not as much as it was yesterday. Of note her hemoglobin today dropped to 7.8. For that reason organ repeat H&H at 9 PM for the night team to follow-up. Pending transfer to [facility], Dr. Jones has spoke with some of the guitar repair technician at [facility] to push for sooner transfer if possible. Transfer minutes also has informed that they have reach out to other facilities to fasten the transfer as possible - Patient's plan and care discussed with my attending, Dr. Dutch Alvarenga MD Internal Medicine PGY-2 Documentation for date of: 04/28/24 Subjective Subjective Interval history: No acute events overnight. Reports mild Right quadrant intermittent discomfort. She is tolerating her clear liquid diet. She reports two BM since yesterday which have bloody clots but less than previously.Denies CP, SOB, dizziness. Exam Vital Signs Temp Pulse Resp BP Pulse Ox O2 Del Method O2 Flow Rate 98.3 F 78 17 124/76 95 Room Air 3 04/28/24 12:00 04/28/24 12:00 04/28/24 12:00 04/28/24 12:00 04/28/24 12:00 04/28/24 12:00 04/27/24 16:00 Narrative Exam General: Well appearing, well nourished, in no distress, ambulating without difficulty. HEENT: Normocephalic, atraumatic, conjunctiva clear, sclera non-icteric, EOM intact, PERRL, Heart: Regular rate and rhythm, no murmur or gallop Lungs: Clear to auscultation and percussion Abdomen: soft, nontender to palpation Extremities: No amputations or deformities, cyanosis, edema or varicosities, peripheral pulses intact Neurologic: Moves all extremities spontaneously, A&Ox3 Psychiatric: Cooperative, normal mood and affect. Objective Labs 04/28/24 05:15 04/28/24 05:15 Labs: Laboratory Results - last 24 hr 04/27/24 04/27/24 04/28/24 15:39 21:25 05:15 WBC 5.9 5.0 RBC 2.45 L 2.32 L Hgb 8.4 L 8.1 L 7.8 L Hct 25.3 L 24.3 L 23.1 L MCV 99 100 MCH 33.1 33.6 MCHC 33.3 33.8 RDW Std Deviation 46.8 H 47.5 H Plt Count 196 D 183 Neut % (Auto) 59 57 Lymph % (Auto) 28 29 [place] % (Auto) 10 10 Eos % (Auto) 2 4 Baso % (Auto) 0 0 Neut # (Auto) 3.5 2.8 Lymph # (Auto) 1.7 1.4 [place] # (Auto) 0.6 0.5 Eos # (Auto) 0.1 0.2 Baso # (Auto) 0.0 0.0 Immature Gran # (Auto) 0.01 H 0.01 H Absolute Nucleated RBC 0.00 0.00 Immature Gran % 0 0 Nucleated RBC % 0 0 Sodium 142 Potassium 3.6 Chloride 109 H Carbon Dioxide 27.9 Anion Gap 5 L BUN 7 L Creatinine 0.7 Estim Creat Clear Calc 80.5 eGFR > 60 BUN/Creatinine Ratio 10 L Glucose 96 Calculated Osmolality 281 Calcium 8.4 Corrected Calcium 9.0 Phosphorus 4.2 Magnesium 2.2 Total Bilirubin 0.4 AST 19 ALT 11 Alkaline Phosphatase 92 Total Protein 5.1 L Albumin 3.2 L Globulin 1.9 L Albumin/Globulin Ratio 1.7 Quality Measures Quality Measures VTE prophylaxis Advance care planning discussed with:: patient Assessment & Plan Assessment Current Active Medications: Generic Name Dose Route Start Last Admin Trade Name Freq PRN Reason Stop Dose Admin Acetaminophen 650 mg 04/22/24 12:09 Acetaminophen 325 Mg Tablet PO 05/22/24 12:08 Q6H PRN Pain and Fever >101.5 Ondansetron HCl 4 mg 04/22/24 12:09 Ondansetron Inj 2 Mg/Ml Inj 2 Ml IV 05/22/24 12:08 Q6H PRN NAUSEA OR VOMITING Protocol Pantoprazole Sodium 40 mg 04/22/24 21:00 04/28/24 08:44 Pantoprazole Inj 40 Mg Vial IVP 05/22/24 20:59 40 mg Q12HR VALARIE Administration Sennosides 1 tab 04/22/24 12:09 Senna Tablet PO 05/22/24 12:08 QDAY PRN constipation Protocol Plan Plan 73 y/o F with PMHx of hyperlipidemia and staghorn calculi who presented to [facility] with a chief complaint of bright red blood per rectum since 04/20. Patient admitted for lower GI bleed workup. Pending transfer for IR embolectomy. # Lower GI bleed # Hematochezia Patient does have history of hemorrhoids, reports no similar episode in the past, CT abdomen pelvis does show colonic diverticulosis, increases suspicion for diverticular bleeding. Colonoscopy showed which was positive for hemorrhoids, multiple medium mouth diverticula with evidence of recent bleeding from diverticular opening and blood was noted throughout the colon all the way up to ileocecal valve and cecum. Ileocecal valve was intubated at the distal 20 cm of terminal ileum showed a lot of blood suggestive of small bowel bleed or upper GI bleed. Patient had an EGD which was significant for esophagitis in the lower third of esophagus, gastritis and no evidence was upper GI bleed was seen. Per GI recommendations patient will be transferred to a tertiary care center for further evaluation and management of small bowel/Diverticular bleed, patient will probably need interventional radiology to embolize the source of bleed. Patient is stable for transfer. Hgb -> 7.8 today, Two BM with blood clots -Monitor H&H closely -IV Protonix twice daily -Consulted GI, appreciate recommendations - Pending transfer to [facility] already accepted, pending bed availability, we also broadened search to [facility] # Left renal staghorn calculi CTAP shows Large left renal staghorn calculi, patient is asymptomatic denies any abdominal pain, no CVA tenderness, no hematuria. Patient follows with Dr. Lester outpatient, reports that renal calculi is chronic, reports seeing Dr. Lester about 2 weeks ago #Asymptomatic Bacteriuria UA positive for leukocyte esterase, WBC 1 culture grew E.coli Denies dysuria, increased frequency, chronic UTIs No abx indicated at this time. Disposition: [facility], pending transfer to [facility], already accepted Fluids: None Feeding: CLD Thrombo prophylaxis: SCDs Gastric Ulcer prophylaxis: Pantoprazole 40 mg IV BID CODE STATUS: Full code The patient's plan was discussed with attending Dr. Judd and senior residents Dr. Zeng and Colette Rothman DO PGY1 Internal Medicine Attending Provider Attestation/Addendum I have discussed and was present for the essential components of the history, physical examination, diagnosis, and treatment plan with the resident. I agree with the patient's care as documented by the resident and amended herein by me. Harry Judd DO. Patient seen and evaluated this AM. Patient doing well, no subjective complaints just wants to be transferred to soon as possible. The patient has been informed that she is first on the list however as of today, received notice from our transfer nurse that there are still no beds available at [facility]. Patient did have a very slight hemoglobin drop to 7.8 today, will continue to monitor and trend and transfuse for hemoglobin less than 7. Considering the patient has been on a clear liquid diet for an extended period of time, will touch base with GI to ensure it is safe to advance to full liquid at this time. Will continue to monitor closely hopefully transfer tomorrow. Although this document has been carefully reviewed, there may still be some phonetic and other typographical errors. These errors are purely grammatical due to imperfections in the software program and should not be construed in any way to compromise the substance of the patient's medical care during this visit.
--- NOTE | 2024-04-28 14:20 | PC.CM ---
Addendum entered by Celina Benson RN 04/28/24 19:27: 1924 received call from Hermann at [facility] asking who will the DrChandni for peer to peer. I checked with night team and it will be Dr. Glasgow. She provided me with ther direct number. I gave to to Hermann and he stated peer to peer will be in few minutes. Addendum entered by Celina Benson RN 04/28/24 17:02: 1702 received email link from [facility] and pushed images. Addendum entered by Celina Benson RN 04/28/24 16:34: [address] Jones notes from yesterday ''Spoke with the Chief of gastrointestinal endoscopy at [facility] Patient was #4 on the list of waiting for bed With his help patient is moved to #1 and the next bed available will be her bed and she will be transferred hopefully by [facility] or tomorrow at the latest . Addendum entered by Celina Benson RN 04/28/24 16:33: 1633 clinicals sent to [facility]. Addendum entered by Celina Benson RN 04/28/24 16:28: [address] [facility], spoke to Evans and initiated the transfer request. He stated he will email me the link and to push images and fax clinicals. Original Note: 1417 called and informed Tingle regarding outcome of the call. 1414 called [facility] pt placement, spoke to Delmis espitia for Donita working on the case. I gave her updates on pt and today's HH. She stated still waiting for bed.
--- NOTE | 2024-04-28 15:11 | PC.SS ---
Rounding note: patient remains pending an open bed for transfer to [facility].
--- NOTE | 2024-04-28 17:07 | PC.NURSE ---
Notified that patient is requesting to speak with him because she stated she is upset that she is still here waiting to be transferred. Patient educated on note from transfer nurse that they are reaching out to another hospital in search for a bed. Patient stated that she wants to go home as she is getting frustrated sitting here waiting . Provider stated they would come to bedside to speak with the patient
--- NOTE | 2024-04-28 19:57 | PD.IMPROG ---
Documentation for date of: 04/28/24 Subjective Subjective Interval history: Spoke with the attending physician at [facility] Patient remains a priority She is dropping her hemoglobin to 7.8 Exam Vital Signs Temp Pulse Resp BP Pulse Ox O2 Del Method O2 Flow Rate 98.3 F 76 17 128/74 95 Room Air 3 04/28/24 15:56 04/28/24 16:00 04/28/24 15:56 04/28/24 15:56 04/28/24 15:56 04/28/24 15:56 04/27/24 16:00 Objective Labs 04/28/24 05:15 04/28/24 05:15 Labs: Laboratory Results - last 24 hr 04/27/24 04/28/24 21:25 05:15 WBC 5.9 5.0 RBC 2.45 L 2.32 L Hgb 8.1 L 7.8 L Hct 24.3 L 23.1 L MCV 99 100 MCH 33.1 33.6 MCHC 33.3 33.8 RDW Std Deviation 46.8 H 47.5 H Plt Count 196 D 183 Neut % (Auto) 59 57 Lymph % (Auto) 28 29 [place] % (Auto) 10 10 Eos % (Auto) 2 4 Baso % (Auto) 0 0 Neut # (Auto) 3.5 2.8 Lymph # (Auto) 1.7 1.4 [place] # (Auto) 0.6 0.5 Eos # (Auto) 0.1 0.2 Baso # (Auto) 0.0 0.0 Immature Gran # (Auto) 0.01 H 0.01 H Absolute Nucleated RBC 0.00 0.00 Immature Gran % 0 0 Nucleated RBC % 0 0 Sodium 142 Potassium 3.6 Chloride 109 H Carbon Dioxide 27.9 Anion Gap 5 L BUN 7 L Creatinine 0.7 Estim Creat Clear Calc 80.5 eGFR > 60 BUN/Creatinine Ratio 10 L Glucose 96 Calculated Osmolality 281 Calcium 8.4 Corrected Calcium 9.0 Phosphorus 4.2 Magnesium 2.2 Total Bilirubin 0.4 AST 19 ALT 11 Alkaline Phosphatase 92 Total Protein 5.1 L Albumin 3.2 L Globulin 1.9 L Albumin/Globulin Ratio 1.7 Impressions Impression: # Small bowel bleed # Acute posthemorrhagic anemia continue current management Assessment & Plan A&P Narrative # Hematochezia with the clinical presentation is most likely a diverticular bleed Suggestions No reaction to colonoscopy Lets see how she does over the next 24 hours Serial CBC Clear liquid diet If patient continues to bleed will need a repeat colonoscopy and possible nuclear medicine GI bleeding scan Avoid NSAIDs Will follow the patient Time Spent With Patient Time: Total time spent is greater than 50% in coordination of care (as documented) at patient's floor/unit and/or counseling patient:
[2024-04-28 21:50] LABS: Hematocrit 24.5 % (36.0-46.0)
[2024-04-28 21:56] LABS: Hemoglobin 7.9 g/dL (12.0-16.0)
[2024-04-29] VITALS (7 sets, daily range): BP systolic 110–135; BP diastolic 59–79; PULSE 68–108; RESP 16–19; TEMP 36.4–37.1; O2SAT 95–99; BMI 29.4
[2024-04-29 05:44] LABS: Basophils % (Auto) 0 % (0-2.5); Eosinophils # (Auto) 0.2 Thou/mm3 (0.0-0.5); Eosinophils % (Auto) 4 % (0-10); Hematocrit 23.4 % (36.0-46.0); Immature Granulocytes % (Auto) 0 % (0-0); Immature Granulocytes Auto 0.01 Thou/mm3 (0.00-0.00); Lymphocytes # (Auto) 1.6 Thou/mm3 (1.0-4.8); Lymphocytes % (Auto) 31 % (10-50); Mean Corpuscular HGB Conc 32.5 g/dl (31.0-37.0); Mean Corpuscular Hemoglobin 32.8 pg (25.0-35.0); Mean Corpuscular Volume 101 fL (80-100); Monocytes # (Auto) 0.5 Thou/mm3 (0.0-0.8); Monocytes % (Auto) 9 % (0-12); Neutrophils # (Auto) 2.8 Thou/mm3 (1.8-7.7); Neutrophils % (Auto) 55 % (37-80); Nucleated Red Blood Cell % 0 /100 WBC (0); Platelet Count 197 Thou/mm3 (140-440); RDW Standard Deviation 49.1 fL (36.4-46.3); Red Blood Count 2.32 Miln/mm3 (4.00-5.20); White Blood Count 5.2 Thou/mm3 (3.6-11.0)
[2024-04-29 05:46] LABS: Hemoglobin 7.6 g/dL (12.0-16.0)
[2024-04-29 06:32] LABS: Alanine Aminotransferase 12 U/L (10-49); Albumin, Serum 3.1 gm/dL (3.4-4.8); Albumin/Globulin Ratio 1.6 (1.2-2.2); Alkaline Phosphatase 88 U/L (46-116); Anion Gap 8 (7-16); Aspartate Amino Transferase 17 U/L (0-34); BUN/Creatinine Ratio 7 Ratio (12-20); Bilirubin,Total 0.4 mg/dL (0.3-1.2); Blood Urea Nitrogen 5 mg/dL (9-23); Calcium 8.4 mg/dL (8.3-10.6); Calcium (Corrected) 9.1 mg/dL (8.5-10.1); Carbon Dioxide 26.3 mMol/L (20.0-31.0); Chloride 108 mMol/L (98-107); Creatinine (Component) 0.7 mg/dL (0.6-1.3); Estimated Creatinine Clearance 80.5 mL/min (>60); Globulin 1.9 gm/dL (2.3-3.5); Glucose 91 mg/dL (74-106); Magnesium 2.2 mg/dL (1.6-2.6); Osmolality,Calculated 280 (275-295); Phosphorous 4.7 mg/dL (2.4-5.1); Potassium 3.3 mMol/L (3.4-5.1); Sodium 142 mMol/L (136-145); eGFR > 60 See Note
[2024-04-29] MEDS: PANTOPRAZOLE INJ 40 MG VIAL IVP ×2 (08:32→21:28)
[2024-04-29] MEDS: POTASSIUM CHLORIDE 20 mEq TABCR 40 MEQ PO (09:11)
--- NOTE | 2024-04-29 10:59 | PC.SS ---
Follow up note: Pt is waiting for higher level of care transfer.
--- NOTE | 2024-04-29 11:26 | PC.CM ---
Addendum entered by Harriett Roman RN 04/29/24 19:29: Pending open bed at [facility]. Packet completed and on transfer nurse desk. I reported off to night charge nurse. Addendum entered by Harriett Roman RN 04/29/24 11:29: I called [facility] and I spoke to Evans. He states Dr. Judd canceled transfer request. I called Dr. Judd and he states patient is number 1 on the [facility] transfer list and he states we already have an accepting Dr at [facility]. Dr. Judd stated [facility] does not have any beds anyway and we do not have an accepting at [facility]. Original Note: [id number] I spoke to patient placement at [facility] and they stated they are still at capacity and they do not have any beds at this time.
--- NOTE | 2024-04-29 14:26 | PD.RESPRO ---
Documentation for date of: 04/29/24 Subjective Subjective Interval history: No acute events overnight. She is tolerating her clear liquid diet. Discussed advancing to full liquid. She was hesitant at first but agreed. No BM today. Exam Vital Signs Temp Pulse Resp BP Pulse Ox O2 Del Method O2 Flow Rate 97.6 F 90 17 121/73 96 Room Air 3 04/29/24 11:52 04/29/24 11:52 04/29/24 11:52 04/29/24 11:52 04/29/24 11:52 04/29/24 11:52 04/27/24 16:00 Narrative Exam General: Well appearing, well nourished, in no distress, ambulating without difficulty. HEENT: Normocephalic, atraumatic, conjunctiva clear, sclera non-icteric, EOM intact, PERRL, Heart: Regular rate and rhythm, no murmur or gallop Lungs: Clear to auscultation and percussion Abdomen: soft, nontender to palpation Extremities: No amputations or deformities, cyanosis, edema or varicosities, peripheral pulses intact Neurologic: Moves all extremities spontaneously, A&Ox3 Psychiatric: Cooperative, normal mood and affect. Objective Labs 04/29/24 04:00 04/29/24 04:00 Labs: Laboratory Results - last 24 hr 04/28/24 04/29/24 21:08 04:00 WBC 5.2 RBC 2.32 L Hgb 7.9 L 7.6 L Hct 24.5 L 23.4 L MCV 101 H MCH 32.8 MCHC 32.5 RDW Std Deviation 49.1 H Plt Count 197 Neut % (Auto) 55 Lymph % (Auto) 31 [place] % (Auto) 9 Eos % (Auto) 4 Baso % (Auto) 0 Neut # (Auto) 2.8 Lymph # (Auto) 1.6 [place] # (Auto) 0.5 Eos # (Auto) 0.2 Baso # (Auto) 0.0 Immature Gran # (Auto) 0.01 H Absolute Nucleated RBC 0.00 Immature Gran % 0 Nucleated RBC % 0 Sodium 142 Potassium 3.3 L Chloride 108 H Carbon Dioxide 26.3 Anion Gap 8 BUN 5 L Creatinine 0.7 Estim Creat Clear Calc 80.5 eGFR > 60 BUN/Creatinine Ratio 7 L Glucose 91 Calculated Osmolality 280 Calcium 8.4 Corrected Calcium 9.1 Phosphorus 4.7 Magnesium 2.2 Total Bilirubin 0.4 AST 17 ALT 12 Alkaline Phosphatase 88 Total Protein 5.0 L Albumin 3.1 L Globulin 1.9 L Albumin/Globulin Ratio 1.6 Quality Measures Quality Measures VTE prophylaxis Advance care planning discussed with:: patient Assessment & Plan Assessment Current Active Medications: Generic Name Dose Route Start Last Admin Trade Name Freq PRN Reason Stop Dose Admin Acetaminophen 650 mg 04/22/24 12:09 Acetaminophen 325 Mg Tablet PO 05/22/24 12:08 Q6H PRN Pain and Fever >101.5 Ondansetron HCl 4 mg 04/22/24 12:09 Ondansetron Inj 2 Mg/Ml Inj 2 Ml IV 05/22/24 12:08 Q6H PRN NAUSEA OR VOMITING Protocol Pantoprazole Sodium 40 mg 04/22/24 21:00 04/29/24 08:32 Pantoprazole Inj 40 Mg Vial IVP 05/22/24 20:59 40 mg Q12HR VALARIE Administration Sennosides 1 tab 04/22/24 12:09 Senna Tablet PO 05/22/24 12:08 QDAY PRN constipation Protocol Plan Plan 73 y/o F with PMHx of hyperlipidemia and staghorn calculi who presented to [facility] with a chief complaint of bright red blood per rectum since 04/20. Patient admitted for lower GI bleed workup. Pending transfer for IR embolectomy. Discussed case with [facility] however, no bed availability at the moment. Given that patient has been waiting for almost a week on [facility] accepted list we will continue to wait for transfer there. # Lower GI bleed # Hematochezia Patient does have history of hemorrhoids, reports no similar episode in the past, CT abdomen pelvis does show colonic diverticulosis, increases suspicion for diverticular bleeding. Colonoscopy showed hemorrhoids, multiple medium mouth diverticula with evidence of recent bleeding from diverticular opening and blood was noted throughout the colon all the way up to ileocecal valve and cecum. Ileocecal valve was intubated at the distal 20 cm of terminal ileum showed a lot of blood suggestive of small bowel bleed or upper GI bleed. Patient had an EGD which was significant for esophagitis in the lower third of esophagus, gastritis and no evidence was upper GI bleed was seen. Per GI recommendations patient will be transferred to a tertiary care center for further evaluation and management of small bowel/Diverticular bleed, patient will probably need interventional radiology to embolize the source of bleed. Patient is stable for transfer. Hgb -> 7.8 today, No BM today -Monitor H&H closely -IV Protonix twice daily -Consulted GI, appreciate recommendations - Pending transfer to [facility] already accepted, pending bed availability -Full liquid diet per GI # Left renal staghorn calculi CTAP shows Large left renal staghorn calculi, patient is asymptomatic denies any abdominal pain, no CVA tenderness, no hematuria. Patient follows with Dr. Lester outpatient, reports that renal calculi is chronic, reports seeing Dr. Lester about 2 weeks ago #Asymptomatic Bacteriuria UA positive for leukocyte esterase, WBC 1 culture grew E.coli Denies dysuria, increased frequency, chronic UTIs No abx indicated at this time. Disposition: [facility], pending transfer to [facility], already accepted Fluids: None Feeding: Full Liquid Diet Thrombo prophylaxis: SCDs Gastric Ulcer prophylaxis: Pantoprazole 40 mg IV BID CODE STATUS: Full code The patient's plan was discussed with attending Dr. Judd and senior residents Dr. Zeng and Colette Rothman DO PGY1 Internal Medicine Senior resident attestation: I discussed with and supervised the quality assurance intern physician who took care of this patient. I personally saw and examined the patient and discussed the assessment and plan with the entire medicine team, including my attending Dr. Judd , I agree with the assessment and plan as documented above. MD Azucena PGY2 Attending Provider Attestation/Addendum I have discussed and was present for the essential components of the history, physical examination, diagnosis, and treatment plan with the resident. I agree with the patient's care as documented by the resident and amended herein by me. Harry Judd DO. Patient seen and evaluated this AM. Patient presently pending transfer to [facility], has been accepted, is first on the list. Requires transfer per GI for needing embolization for diverticular bleed. Patient has been here for approximately 7 days and is getting very agitated that she has to stay here she is normally an active person. Hemoglobin down to 7.6 today, will transfuse for less than 7. Checked with transfer nurse today, still no bed availability. Although this document has been carefully reviewed, there may still be some phonetic and other typographical errors. These errors are purely grammatical due to imperfections in the software program and should not be construed in any way to compromise the substance of the patient's medical care during this visit.
--- NOTE | 2024-04-29 20:14 | ESPR_ITS ---
Documentation for date of: 04/29/24 Subjective Subjective Interval history: Hemoglobin hematocrit 7.6 and 23.4 The bleeding has slowed down Patient tolerating full liquid diet Exam Vital Signs Temp Pulse Resp BP Pulse Ox O2 Del Method O2 Flow Rate 98.8 F 108 H 17 110/59 L 99 Room Air 3 04/29/24 16:00 04/29/24 16:00 04/29/24 16:00 04/29/24 16:00 04/29/24 16:00 04/29/24 16:00 04/27/24 16:00 Objective Labs 04/29/24 04:00 04/29/24 04:00 Labs: Laboratory Results - last 24 hr 04/28/24 04/29/24 21:08 04:00 WBC 5.2 RBC 2.32 L Hgb 7.9 L 7.6 L Hct 24.5 L 23.4 L MCV 101 H MCH 32.8 MCHC 32.5 RDW Std Deviation 49.1 H Plt Count 197 Neut % (Auto) 55 Lymph % (Auto) 31 [place] % (Auto) 9 Eos % (Auto) 4 Baso % (Auto) 0 Neut # (Auto) 2.8 Lymph # (Auto) 1.6 [place] # (Auto) 0.5 Eos # (Auto) 0.2 Baso # (Auto) 0.0 Immature Gran # (Auto) 0.01 H Absolute Nucleated RBC 0.00 Immature Gran % 0 Nucleated RBC % 0 Sodium 142 Potassium 3.3 L Chloride 108 H Carbon Dioxide 26.3 Anion Gap 8 BUN 5 L Creatinine 0.7 Estim Creat Clear Calc 80.5 eGFR > 60 BUN/Creatinine Ratio 7 L Glucose 91 Calculated Osmolality 280 Calcium 8.4 Corrected Calcium 9.1 Phosphorus 4.7 Magnesium 2.2 Total Bilirubin 0.4 AST 17 ALT 12 Alkaline Phosphatase 88 Total Protein 5.0 L Albumin 3.1 L Globulin 1.9 L Albumin/Globulin Ratio 1.6 Impressions Impression: # Small bowel bleed Advance to regular diet if no bleeding and hemoglobin stays stable discharge the patient for an outpatient capsule endoscopy Assessment & Plan A&P Narrative # Hematochezia with the clinical presentation is most likely a diverticular bleed Suggestions No reaction to colonoscopy Lets see how she does over the next 24 hours Serial CBC Clear liquid diet If patient continues to bleed will need a repeat colonoscopy and possible nuclear medicine GI bleeding scan Avoid NSAIDs Will follow the patient Time Spent With Patient Time: Total time spent is greater than 50% in coordination of care (as documented) at patient's floor/unit and/or counseling patient:
[2024-04-29 20:49] LABS: Hematocrit 25.3 % (36.0-46.0)
[2024-04-29 20:51] LABS: Hemoglobin 8.4 g/dL (12.0-16.0)
[2024-04-30] VITALS (7 sets, daily range): BP systolic 96–128; BP diastolic 57–90; PULSE 64–92; RESP 16–19; TEMP 36.3–37.3; O2SAT 94–99
[2024-04-30 05:55] LABS: Basophils % (Auto) 1 % (0-2.5); Eosinophils # (Auto) 0.2 Thou/mm3 (0.0-0.5); Eosinophils % (Auto) 2 % (0-10); Hematocrit 24.3 % (36.0-46.0); Immature Granulocytes % (Auto) 0 % (0-0); Immature Granulocytes Auto 0.01 Thou/mm3 (0.00-0.00); Lymphocytes # (Auto) 1.3 Thou/mm3 (1.0-4.8); Lymphocytes % (Auto) 18 % (10-50); Mean Corpuscular HGB Conc 33.3 g/dl (31.0-37.0); Mean Corpuscular Hemoglobin 33.3 pg (25.0-35.0); Mean Corpuscular Volume 100 fL (80-100); Monocytes # (Auto) 0.6 Thou/mm3 (0.0-0.8); Monocytes % (Auto) 7 % (0-12); Neutrophils # (Auto) 5.4 Thou/mm3 (1.8-7.7); Neutrophils % (Auto) 72 % (37-80); Nucleated Red Blood Cell % 0 /100 WBC (0); Platelet Count 194 Thou/mm3 (140-440); RDW Standard Deviation 49.7 fL (36.4-46.3); Red Blood Count 2.43 Miln/mm3 (4.00-5.20); White Blood Count 7.5 Thou/mm3 (3.6-11.0)
[2024-04-30 05:58] LABS: Hemoglobin 8.1 g/dL (12.0-16.0)
--- NOTE | 2024-04-30 06:06 | PC.NURSE ---
Shon from [facility] Placement called at [phone] regarding bed availability for patient placement. He stated that [facility] is currently at maximum capacity and will follow up as soon as a bed becomes available.
[2024-04-30 06:24] LABS: Anion Gap 8 (7-16); BUN/Creatinine Ratio 10 Ratio (12-20); Blood Urea Nitrogen 7 mg/dL (9-23); Calcium 8.5 mg/dL (8.3-10.6); Carbon Dioxide 25.5 mMol/L (20.0-31.0); Chloride 109 mMol/L (98-107); Creatinine (Component) 0.7 mg/dL (0.6-1.3); Estimated Creatinine Clearance 80.5 mL/min (>60); Glucose 93 mg/dL (74-106); Osmolality,Calculated 281 (275-295); Sodium 142 mMol/L (136-145); eGFR > 60 See Note
--- NOTE | 2024-04-30 08:44 | PC.CM ---
I called and spoke to patient placement at at [facility] [phone]. They stated we do not have a bed at this time. I provided updated VS. They requested I have the doctor do a discharge summary and fax it to [phone]. Once a bed opens up,they will already have the discharge summary and they will release the bed. I called Dr. Zeng and requested he do the discharge summary. I let him know we are still pending an open bed.
[2024-04-30] MEDS: PANTOPRAZOLE INJ 40 MG VIAL IVP ×2 (08:48→20:45)
--- NOTE | 2024-04-30 09:21 | ESDS_ITS ---
<Statement entered by Uzair Kaufman MD - 05/09/24 16:11> I reviewed above note and agree with findings and plans. I have also personally examined the patient with medicine team and went over assessment and plan with medical team including process engineering intern and resident physician. Planned Discharge Date 04/30/24 DS: Providers Provider Date of admission: 04/22/24 12:05 Primary care physician: Bettina Mendiola MD Admitting Provider: Uzair Kaufman MD Attending Provider on Admission: Curry Judd DO Consults: 04/22/24 12:12 Consult to Gastroenterology Stat Comment: Lower GI Bleed Consulting Provider: Luther Jones 04/23/24 18:00 Referral - Assortment Planner Routine Service Needed for Transfer: Interventional Radiology Addl Comments:: Patient has suspected small bowel bleed, will need transfer to tertiary care for embolization at the source of bleeding. GI workup completed at our facility Attending Provider on DC: Uzair Kaufman MD Discharging Provider: Uzair Kaufman MD DS: Diagnosis Problem List Completed Was Problem List Reviewed/Reconciled?: Yes Hospital Course Hospital Course Hospital course: Hospital course: Ms. Arredondo is a 73-year-old female with past medical history of hyperlipidemia and staghorn calculi who presented to [facility] with a chief complaint of painless bright red bleeding per rectum. Patient reported regular bowel movements, no change in bowel habits no constipation and diarrhea on admission, patient had recent colonoscopy about 1-1/2-year ago which was benign except for moderate diverticulosis, patient's hemoglobin was stable on admission, overnight patient had multiple episodes of lower GI bleed, painless hemoglobin in a.m. dropped from 12.8 to 9.5, CT angio of abdomen pelvis was suspicious for gastritis, no extravasation in the GI tract was noted. GI was consulted patient had colonoscopy which was positive for hemorrhoids, multiple medium mouth diverticula with evidence of recent bleeding from diverticular opening and blood was noted throughout the colon all the way up to ileocecal valve and cecum. Ileocecal valve was intubated at the distal 20 cm of terminal ileum showed a lot of blood suggestive of small bowel bleed or upper GI bleed. Patient had an EGD which was significant for esophagitis in the lower third of esophagus, gastritis and no evidence was upper GI bleed was seen. Per GI recommendations patient will be transferred to a tertiary care center for further evaluation and management of small bowel bleed, patient will probably need interventional radiology to embolize the source of bleed. Patient has been pending transfer since 04/24/24. During this time her Hgb as been stable ranging from 7.6-9. She has reported intermittent blood clots in her BM with mild right abdominal cramping occasionally. She denies dizziness, syncope, palpitations. She has been tolerating her diet which was recently advanced from clear liquid to full liquid yesterday. Patient is stable for transfer. Discharge Diagnoses: # Small bowel bleed # Bleeding from terminal ileum # Diverticular bleed # Lower GI bleed # Hematochezia # Left renal staghorn calculi The patient's plan was discussed with attending Dr. Kaufman and senior resident Dr. Azucena Rothman, PGY1 Internal Medicine Senior resident attestation: Patient evaluated and examined at the bedside, plan of care discussed with rest of the team including my attending physician, except as noted. Azucena PGY2 Time Spent with Patient Time attestation: Total time spent providing and/or coordinating discharge services: Time spent: Greater than 30 minutes Exam Vital Signs Temp Pulse Resp BP Pulse Ox O2 Del Method O2 Flow Rate 99 F 83 17 128/69 96 Room Air 3 04/30/24 08:00 04/30/24 08:00 04/30/24 08:00 04/30/24 08:00 04/30/24 08:00 04/30/24 08:00 04/30/24 04:00 Narrative Exam General: Well appearing, well nourished, in no distress, ambulating without difficulty. HEENT: Normocephalic, atraumatic, conjunctiva clear, sclera non-icteric, EOM intact, PERRL, Heart: Regular rate and rhythm, no murmur or gallop Lungs: Clear to auscultation and percussion Abdomen: soft, nontender to palpation Extremities: No amputations or deformities, cyanosis, edema or varicosities, peripheral pulses intact Neurologic: Moves all extremities spontaneously, A&Ox3 Psychiatric: Cooperative, normal mood and affect. Discharge Plan Plan Patient condition on transfer: Stable Prescriptions/Referrals Prescriptions/Med Rec: No Action atorvastatin [Lipitor] 40 mg tablet 40 mg PO QDAY naproxen sodium [Aleve] 220 mg Tablet 220 mg PO Q12H PRN (Reason: back pain) loratadine [Claritin] 10 mg Tablet 10 mg PO QDAY Referrals: Bettina Mendiola MD [Primary Care Provider] - Patient/Caregiver Discharge Instructions Print Language: Dominican Quality Discharge Quality Measures VTE prophylaxis
--- NOTE | 2024-04-30 14:09 | PD.IMPROG ---
Documentation for date of: 04/30/24 Exam Vital Signs Temp Pulse Resp BP Pulse Ox O2 Del Method O2 Flow Rate 99.2 F 86 17 119/61 95 Room Air 3 04/30/24 12:00 04/30/24 12:00 04/30/24 12:00 04/30/24 12:00 04/30/24 12:00 04/30/24 12:00 04/30/24 04:00 Objective Labs 05/01/24 04:20 05/01/24 04:20 Labs: Laboratory Results - last 24 hr 04/29/24 04/30/24 20:12 05:10 WBC 7.5 D RBC 2.43 L Hgb 8.4 L 8.1 L Hct 25.3 L 24.3 L MCV 100 MCH 33.3 MCHC 33.3 RDW Std Deviation 49.7 H Plt Count 194 Neut % (Auto) 72 Lymph % (Auto) 18 [place] % (Auto) 7 Eos % (Auto) 2 Baso % (Auto) 1 Neut # (Auto) 5.4 Lymph # (Auto) 1.3 [place] # (Auto) 0.6 Eos # (Auto) 0.2 Baso # (Auto) 0.0 Immature Gran # (Auto) 0.01 H Absolute Nucleated RBC 0.00 Immature Gran % 0 Nucleated RBC % 0 Sodium 142 Potassium 4.0 D Chloride 109 H Carbon Dioxide 25.5 Anion Gap 8 BUN 7 L Creatinine 0.7 Estim Creat Clear Calc 80.5 eGFR > 60 BUN/Creatinine Ratio 10 L Glucose 93 Calculated Osmolality 281 Calcium 8.5 Assessment & Plan A&P Narrative # Hematochezia with the clinical presentation is most likely a diverticular bleed Suggestions No reaction to colonoscopy Lets see how she does over the next 24 hours Serial CBC Clear liquid diet If patient continues to bleed will need a repeat colonoscopy and possible nuclear medicine GI bleeding scan Avoid NSAIDs Will follow the patient Time Spent With Patient Time: Total time spent is greater than 50% in coordination of care (as documented) at patient's floor/unit and/or counseling patient:
--- NOTE | 2024-04-30 15:41 | ESPR_ITS ---
<Statement entered by Uzair Kaufman MD - 05/09/24 16:11> I reviewed above note and agree with findings and plans. I have also personally examined the patient with medicine team and went over assessment and plan with medical team including environmental intern and resident physician. Documentation for date of: 04/30/24 Subjective Subjective Interval history: Senior resident attestation: Patient evaluated and examined at the bedside, plan of care discussed with rest of the team including my attending physician, except as noted. Continue current management and observation, hemoglobin stable, denies melena/hematochezia for the past 2 days. Pending transfer to [facility], transfer nurse Harriett updated. Quresh PGY2 No acute events overnight. Patient reports mild cramping in right abdomen. Denies bowel movement with blood in stool for the past 48 hours. Denies dizziness, nausea, vomiting. Exam Vital Signs Temp Pulse Resp BP Pulse Ox O2 Del Method O2 Flow Rate 99.2 F 86 17 119/61 95 Room Air 3 04/30/24 12:04/30/24 12:00 04/30/24 12:04/30/24 12:00 04/30/24 12:00 04/30/24 12:04/30/24 04:00 Narrative Exam General: Well appearing, well nourished, in no distress, ambulating without difficulty. HEENT: Normocephalic, atraumatic, conjunctiva clear, sclera non-icteric, EOM intact, PERRL, Heart: Regular rate and rhythm, no murmur or gallop Lungs: Clear to auscultation and percussion Abdomen: soft, nontender to palpation Extremities: No amputations or deformities, cyanosis, edema or varicosities, peripheral pulses intact Neurologic: Moves all extremities spontaneously, A&Ox3 Psychiatric: Cooperative, normal mood and affect. Objective Labs 04/30/24 05:10 04/30/24 05:10 Labs: Laboratory Results - last 24 hr 04/29/24 04/30/24 20:12 05:10 WBC 7.5 D RBC 2.43 L Hgb 8.4 L 8.1 L Hct 25.3 L 24.3 L MCV 100 MCH 33.3 MCHC 33.3 RDW Std Deviation 49.7 H Plt Count 194 Neut % (Auto) 72 Lymph % (Auto) 18 [place] % (Auto) 7 Eos % (Auto) 2 Baso % (Auto) 1 Neut # (Auto) 5.4 Lymph # (Auto) 1.3 [place] # (Auto) 0.6 Eos # (Auto) 0.2 Baso # (Auto) 0.0 Immature Gran # (Auto) 0.01 H Absolute Nucleated RBC 0.00 Immature Gran % 0 Nucleated RBC % 0 Sodium 142 Potassium 4.0 D Chloride 109 H Carbon Dioxide 25.5 Anion Gap 8 BUN 7 L Creatinine 0.7 Estim Creat Clear Calc 80.5 eGFR > 60 BUN/Creatinine Ratio 10 L Glucose 93 Calculated Osmolality 281 Calcium 8.5 Quality Measures Quality Measures VTE prophylaxis Advance care planning discussed with:: patient Assessment & Plan Assessment Current Active Medications: Generic Name Dose Route Start Last Admin Trade Name Freq PRN Reason Stop Dose Admin Acetaminophen 650 mg 04/22/24 12:09 Acetaminophen 325 Mg Tablet PO 05/22/24 12:08 Q6H PRN Pain and Fever >101.5 Ondansetron HCl 4 mg 04/22/24 12:09 Ondansetron Inj 2 Mg/Ml Inj 2 Ml IV 05/22/24 12:08 Q6H PRN NAUSEA OR VOMITING Protocol Pantoprazole Sodium 40 mg 04/22/24 21:00 04/30/24 08:48 Pantoprazole Inj 40 Mg Vial IVP 05/22/24 20:59 40 mg Q12HR VALARIE Administration Sennosides 1 tab 04/22/24 12:09 Senna Tablet PO 05/22/24 12:08 QDAY PRN constipation Protocol Plan Plan 73 y/o F with PMHx of hyperlipidemia and staghorn calculi who presented to [facility] with a chief complaint of bright red blood per rectum since 04/20. Patient admitted for lower GI bleed workup. Pending transfer for IR embolectomy. Discussed case with [facility] however, no bed availability at the moment. Given that patient has been waiting for almost a week on [facility] accepted list we will continue to wait for transfer there. # Lower GI bleed # Hematochezia Patient does have history of hemorrhoids, reports no similar episode in the past, CT abdomen pelvis does show colonic diverticulosis, increases suspicion for diverticular bleeding. Colonoscopy showed hemorrhoids, multiple medium mouth diverticula with evidence of recent bleeding from diverticular opening and blood was noted throughout the colon all the way up to ileocecal valve and cecum. Ileocecal valve was intubated at the distal 20 cm of terminal ileum showed a lot of blood suggestive of small bowel bleed or upper GI bleed. Patient had an EGD which was significant for esophagitis in the lower third of esophagus, gastritis and no evidence was upper GI bleed was seen. Per GI recommendations patient will be transferred to a tertiary care center for further evaluation and management of small bowel/Diverticular bleed, patient will probably need interventional radiology to embolize the source of bleed. Patient is stable for transfer. Hgb -> 8.1 today, No BM today Will advance diet and monitor. Possible discharge and follow up outpatient with pill endoscopy per GI -Monitor H&H closely -IV Protonix twice daily -Consulted GI, appreciate recommendations - Pending transfer to [facility] already accepted, pending bed availability -Advancing full liquid to regular diet per GI # Left renal staghorn calculi CTAP shows Large left renal staghorn calculi, patient is asymptomatic denies any abdominal pain, no CVA tenderness, no hematuria. Patient follows with Dr. Lester outpatient, reports that renal calculi is chronic, reports seeing Dr. Lester about 2 weeks ago #Asymptomatic Bacteriuria UA positive for leukocyte esterase, WBC 1 culture grew E.coli Denies dysuria, increased frequency, chronic UTIs No abx indicated at this time. Disposition: [facility], pending transfer to [facility], already accepted Fluids: None Feeding: Cardiac Diet Thrombo prophylaxis: SCDs Gastric Ulcer prophylaxis: Pantoprazole 40 mg IV BID CODE STATUS: Full code The patient's plan was discussed with attending Dr. Kaufman and senior resident Dr. Azucena Rothman, DO PGY1 Internal Medicine
[2024-05-01] VITALS: BP 119/53; PULSE 70; PULSE 80; RESP 18; TEMP 36.2; O2SAT 96
[2024-05-01 04:00] VITALS: BP 115/73; PULSE 72; PULSE 74; RESP 16; TEMP 36.4; O2SAT 96
[2024-05-01 05:57] LABS: Basophils % (Auto) 1 % (0-2.5); Eosinophils # (Auto) 0.3 Thou/mm3 (0.0-0.5); Eosinophils % (Auto) 5 % (0-10); Hematocrit 24.6 % (36.0-46.0); Immature Granulocytes % (Auto) 0 % (0-0); Immature Granulocytes Auto 0.02 Thou/mm3 (0.00-0.00); Lymphocytes # (Auto) 1.4 Thou/mm3 (1.0-4.8); Lymphocytes % (Auto) 27 % (10-50); Mean Corpuscular HGB Conc 32.5 g/dl (31.0-37.0); Mean Corpuscular Hemoglobin 32.9 pg (25.0-35.0); Mean Corpuscular Volume 101 fL (80-100); Monocytes # (Auto) 0.5 Thou/mm3 (0.0-0.8); Monocytes % (Auto) 10 % (0-12); Neutrophils % (Auto) 57 % (37-80); Nucleated Red Blood Cell % 0 /100 WBC (0); Platelet Count 218 Thou/mm3 (140-440); RDW Standard Deviation 50.2 fL (36.4-46.3); Red Blood Count 2.43 Miln/mm3 (4.00-5.20); White Blood Count 5.3 Thou/mm3 (3.6-11.0)
[2024-05-01 06:04] LABS: Anion Gap 7 (7-16); BUN/Creatinine Ratio 11 Ratio (12-20); Blood Urea Nitrogen 8 mg/dL (9-23); Calcium 8.8 mg/dL (8.3-10.6); Carbon Dioxide 28.1 mMol/L (20.0-31.0); Chloride 108 mMol/L (98-107); Creatinine (Component) 0.7 mg/dL (0.6-1.3); Estimated Creatinine Clearance 80.5 mL/min (>60); Glucose 95 mg/dL (74-106); Osmolality,Calculated 283 (275-295); Potassium 4.2 mMol/L (3.4-5.1); Sodium 143 mMol/L (136-145); eGFR > 60 See Note
[2024-05-01 08:00] VITALS: BP 110/72; PULSE 65; PULSE 77; RESP 18; TEMP 36.1; O2SAT 98
[2024-05-01] MEDS: PANTOPRAZOLE INJ 40 MG VIAL IVP (08:36)
--- NOTE | 2024-05-01 11:09 | PC.CM ---
Addendum entered by Harriett Roman RN 05/01/24 17:07: [facility] contacted and burr picker time set for 1900. The ambulance will come sooner if they have a unit available. Charge nurse and nurse made aware. Addendum entered by Harriett Roman RN 05/01/24 16:37: The accepting Dr is Dr. Micheline Painter. Addendum entered by Harriett Roman RN 05/01/24 16:31: I spoke to [place] with [facility] bed placement and she states she did receive the discharge summary and she gave me a bed. Patient will be going to [place] address [address] Bed AMN A456 Bed 1. the number to call and give report is [phone]. I will call and set up transport. Addendum entered by Harriett Roman RN 05/01/24 16:22: Bedside nurse called me and stated [facility] called and got an update on patient. They requested a discharge summary. I faxed the discharge summary earlier today dated 07/01. I asked Dr. Navas to do an addendum for today. Dr. Navas did another discharge summary for today and I faxed it to [facility]. I have the packet ready for transfer with CD in the packet. Original Note: 0900I spoke to [facility] patient placement and they stated they do not have an open bed at this time. He stated they hope to have some discharges today and that would open up a bed. I verified they received the discharge summary. I updated Dr. Navas. Packet ready for transfer.
--- NOTE | 2024-05-01 11:28 | PD.IMPROG ---
Documentation for date of: 05/01/24 Subjective Subjective Interval history: Hemoglobin hematocrit 8.1 and 24.3 No bleeding per rectum at this time Exam Vital Signs Temp Pulse Resp BP Pulse Ox O2 Del Method O2 Flow Rate 97.0 F 65 18 110/72 98 Nasal Cannula 3 05/01/24 08:00 05/01/24 08:00 05/01/24 08:00 05/01/24 08:00 05/01/24 08:00 05/01/24 08:00 04/30/24 04:00 Objective Labs 05/01/24 04:20 05/01/24 04:20 Labs: Laboratory Results - last 24 hr 05/01/24 04:20 WBC 5.3 RBC 2.43 L Hgb 8.0 L Hct 24.6 L MCV 101 H MCH 32.9 MCHC 32.5 RDW Std Deviation 50.2 H Plt Count 218 Neut % (Auto) 57 Lymph % (Auto) 27 [place] % (Auto) 10 Eos % (Auto) 5 Baso % (Auto) 1 Neut # (Auto) 3.0 Lymph # (Auto) 1.4 [place] # (Auto) 0.5 Eos # (Auto) 0.3 Baso # (Auto) 0.0 Immature Gran # (Auto) 0.02 H Absolute Nucleated RBC 0.00 Immature Gran % 0 Nucleated RBC % 0 Sodium 143 Potassium 4.2 Chloride 108 H Carbon Dioxide 28.1 Anion Gap 7 BUN 8 L Creatinine 0.7 Estim Creat Clear Calc 80.5 eGFR > 60 BUN/Creatinine Ratio 11 L Glucose 95 Calculated Osmolality 283 Calcium 8.8 Impressions Impression: # Small bowel bleed Continue to monitor CBC Waiting bed at [facility] Assessment & Plan A&P Narrative # Hematochezia with the clinical presentation is most likely a diverticular bleed Suggestions No reaction to colonoscopy Lets see how she does over the next 24 hours Serial CBC Clear liquid diet If patient continues to bleed will need a repeat colonoscopy and possible nuclear medicine GI bleeding scan Avoid NSAIDs Will follow the patient Time Spent With Patient Time: Total time spent is greater than 50% in coordination of care (as documented) at patient's floor/unit and/or counseling patient:
[2024-05-01 12:00] VITALS: BP 102/73; PULSE 92; PULSE 95; RESP 17; TEMP 36.4; O2SAT 95
--- NOTE | 2024-05-01 13:14 | ESPR_ITS ---
<Statement entered by Uzair Kaufman MD - 05/09/24 16:12> I reviewed above note and agree with findings and plans. I have also personally examined the patient with medicine team and went over assessment and plan with medical team including product management internship and resident physician. Documentation for date of: 05/01/24 Subjective Subjective Interval history: Patient seen today at the bedside fine awake, alert, oriented x 3. No overnight events reported. States no complaint at this time. Vital signs stable at this time. Hemoglobin has remained stable for the past 3 days. Spoke to transfer nurse, still pending bed availability. Exam Vital Signs Temp Pulse Resp BP Pulse Ox O2 Del Method O2 Flow Rate 97.5 F 92 17 102/73 95 Nasal Cannula 3 05/01/24 12:00 05/01/24 12:00 05/01/24 12:00 05/01/24 12:00 05/01/24 12:00 05/01/24 12:00 04/30/24 04:00 Narrative Exam Physical Exam GENERAL: NAD, NC/AT, responsive/cooperative. A&Ox3 HEENT: Moist mucosa. Eyes open, symmetrical, & clear CARDIO: No chest pain on palpation. Heart RRR, no obvious murmurs PULM: No noted coughing/dyspnea. Lungs CTA B/L, no R/W/R GI: Abdomen soft, nondistended, no pain on palpation. BSx4 URO/MOLD CARRIER:: No further abnormalities noted. Wan catheter SKIN/MSK/EXT: No wounds/rashes/edema/amputations, no pain on palpation. Pedal pulses present B/L Objective Labs 05/01/24 04:20 05/01/24 04:20 Labs: Laboratory Results - last 24 hr 05/01/24 04:20 WBC 5.3 RBC 2.43 L Hgb 8.0 L Hct 24.6 L MCV 101 H MCH 32.9 MCHC 32.5 RDW Std Deviation 50.2 H Plt Count 218 Neut % (Auto) 57 Lymph % (Auto) 27 [place] % (Auto) 10 Eos % (Auto) 5 Baso % (Auto) 1 Neut # (Auto) 3.0 Lymph # (Auto) 1.4 [place] # (Auto) 0.5 Eos # (Auto) 0.3 Baso # (Auto) 0.0 Immature Gran # (Auto) 0.02 H Absolute Nucleated RBC 0.00 Immature Gran % 0 Nucleated RBC % 0 Sodium 143 Potassium 4.2 Chloride 108 H Carbon Dioxide 28.1 Anion Gap 7 BUN 8 L Creatinine 0.7 Estim Creat Clear Calc 80.5 eGFR > 60 BUN/Creatinine Ratio 11 L Glucose 95 Calculated Osmolality 283 Calcium 8.8 Quality Measures Quality Measures VTE prophylaxis Advance care planning discussed with:: patient Assessment & Plan Assessment Current Active Medications: Generic Name Dose Route Start Last Admin Trade Name Freq PRN Reason Stop Dose Admin Acetaminophen 650 mg 04/22/24 12:09 Acetaminophen 325 Mg Tablet PO 05/22/24 12:08 Q6H PRN Pain and Fever >101.5 Ondansetron HCl 4 mg 04/22/24 12:09 Ondansetron Inj 2 Mg/Ml Inj 2 Ml IV 05/22/24 12:08 Q6H PRN NAUSEA OR VOMITING Protocol Pantoprazole Sodium 40 mg 04/22/24 21:00 05/01/24 08:36 Pantoprazole Inj 40 Mg Vial IVP 05/22/24 20:59 40 mg Q12HR VALARIE Administration Sennosides 1 tab 04/22/24 12:09 Senna Tablet PO 05/22/24 12:08 QDAY PRN constipation Protocol Plan 73 y/o F with PMHx of hyperlipidemia and staghorn calculi who presented to [facility] with a chief complaint of bright red blood per rectum since 04/20. Patient admitted for lower GI bleed workup. Pending transfer for IR embolectomy. Discussed case with [facility] however, no bed availability at the moment. Given that patient has been waiting for almost a week on [facility] accepted list we will continue to wait for transfer there. # Lower GI bleed # Hematochezia Patient does have history of hemorrhoids, reports no similar episode in the past, CT abdomen pelvis does show colonic diverticulosis, increases suspicion for diverticular bleeding. Colonoscopy showed hemorrhoids, multiple medium mouth diverticula with evidence of recent bleeding from diverticular opening and blood was noted throughout the colon all the way up to ileocecal valve and cecum. Ileocecal valve was intubated at the distal 20 cm of terminal ileum showed a lot of blood suggestive of small bowel bleed or upper GI bleed. Patient had an EGD which was significant for esophagitis in the lower third of esophagus, gastritis and no evidence was upper GI bleed was seen. Per GI recommendations patient will be transferred to a tertiary care center for further evaluation and management of small bowel/Diverticular bleed, patient will probably need interventional radiology to embolize the source of bleed. Patient is stable for transfer. Hgb remains stable around 8 Will advance diet and monitor. Possible discharge and follow up outpatient with pill endoscopy per GI -Monitor H&H closely -IV Protonix twice daily -Consulted GI, appreciate recommendations -Pending transfer to [facility] already accepted, pending bed availability -Advancing full liquid to regular diet per GI # Left renal staghorn calculi CTAP shows Large left renal staghorn calculi, patient is asymptomatic denies any abdominal pain, no CVA tenderness, no hematuria. Patient follows with Dr. Lester outpatient, reports that renal calculi is chronic, reports seeing Dr. Lester about 2 weeks ago #Asymptomatic Bacteriuria UA positive for leukocyte esterase, WBC 1 culture grew E.coli Denies dysuria, increased frequency, chronic UTIs -Monitor at this time Case discussed with my senior Dr. Zeng PGY-[address] Mandeep Whitehead MD PGY-1 Disposition: [facility], pending transfer Fluids: None Feeding: Cardiac diet Thrombo prophylaxis: SCDs Gastric Ulcer prophylaxis: Pantoprazole CODE STATUS: Full code Senior resident attestation: Patient evaluated and examined at the bedside, plan of care discussed with rest of the team including my attending physician, except as noted. Patient reported having a bowel movement for last 2 days, but this morning had some bowel movement, reported no blood or dark stools. hemoGlobin stable at 8. Vitals stable, plan to proceed with the transfer for today, still pending bed availability, per transfer nurse. Reevaluate tomorrow, if patient is stable for discharge as no active bleeding currently. if no active bleed, unlikely if CTA which show an active bleed. Follow gastroenterology recommendations. Azucena PGY2
--- NOTE | 2024-05-01 15:57 | ESDS_ITS ---
<Statement entered by Uzair Kaufman MD - 05/09/24 16:13> I reviewed above note and agree with findings and plans. I have also personally examined the patient with medicine team and went over assessment and plan with medical team including internal corrosion specialist and resident physician. Planned Discharge Date 05/01/24 DS: Providers Provider Date of admission: 04/22/24 12:05 Primary care physician: Bettina Mendiola MD Admitting Provider: Uzair Kaufman MD Attending Provider on Admission: Curry Judd DO Consults: 04/22/24 12:12 Consult to Gastroenterology Stat Comment: Lower GI Bleed Consulting Provider: Luther Jones 04/23/24 18:00 Referral - Physical Testing Supervisor Routine Service Needed for Transfer: Interventional Radiology Addl Comments:: Patient has suspected small bowel bleed, will need transfer to tertiary care for embolization at the source of bleeding. GI workup completed at our facility Attending Provider on DC: Erasmo Whitehead MD Discharging Provider: Erasmo Whitehead MD DS: Diagnosis Problem List Completed Was Problem List Reviewed/Reconciled?: Yes Hospital Course Hospital Course Hospital course: 73-year-old female with past medical history of hyperlipidemia and staghorn calculi who presented to [facility] with a chief complaint of painless bright red bleeding per rectum. Patient reported regular bowel movements, no change in bowel habits no constipation and diarrhea on admission, patient had recent colonoscopy about 1-1/2-year ago which was benign except for moderate diverticulosis, patient's hemoglobin was stable on admission, overnight patient had multiple episodes of lower GI bleed, painless hemoglobin in a.m. dropped from 12.8 to 9.5, CT angio of abdomen pelvis was suspicious for gastritis, no extravasation in the GI tract was noted. GI was consulted patient had colonoscopy which was positive for hemorrhoids, multiple medium mouth diverticula with evidence of recent bleeding from diverticular opening and blood was noted throughout the colon all the way up to ileocecal valve and cecum. Ileocecal valve was intubated at the distal 20 cm of terminal ileum showed a lot of blood suggestive of small bowel bleed or upper GI bleed. Patient had an EGD which was significant for esophagitis in the lower third of esophagus, gastritis and no evidence was upper GI bleed was seen. Per GI recommendations patient will be transferred to a tertiary care center for further evaluation and management of small bowel bleed, patient will probably need interventional radiology to embolize the source of bleed. Patient has been pending transfer since 04/24/24. During this time her Hgb as been stable ranging from 7.6-9. She has reported intermittent blood clots in her BM with mild right abdominal cramping occasionally. She denies dizziness, syncope, palpitations. She has been tolerating her diet which was recently advanced from clear liquid to full liquid yesterday. Patient is stable for transfer. Discharge Diagnoses: # Small bowel bleed # Bleeding from terminal ileum # Diverticular bleed # Lower GI bleed # Hematochezia # Left renal staghorn calculi The patient's plan was discussed with attending Dr. Kaufman and senior resident Dr. Azucena Whitehead MD PGY-1 Senior resident attestation: Patient evaluated and examined at the bedside, plan of care discussed with rest of the team including my attending physician, except as noted. Azucena PGY2 Status at Discharge Functional status at discharge: independent ambulation Overall status at discharge: patient is progressing back to baseline Time Spent with Patient Time attestation: Total time spent providing and/or coordinating discharge services: Time spent: Greater than 30 minutes Exam Vital Signs Temp Pulse Resp BP Pulse Ox O2 Del Method O2 Flow Rate 97.5 F 92 17 102/73 95 Nasal Cannula 3 05/01/24 12:00 05/01/24 12:00 05/01/24 12:05/01/24 12:00 05/01/24 12:00 05/01/24 12:04/30/24 04:00 Narrative Exam Physical Exam GENERAL: NAD, NC/AT, responsive/cooperative. A&Ox3 HEENT: Moist mucosa. Eyes open, symmetrical, & clear CARDIO: No chest pain on palpation. Heart RRR, no obvious murmurs PULM: No noted coughing/dyspnea. Lungs CTA B/L, no R/W/R GI: Abdomen soft, nondistended, no pain on palpation. BSx4 URO/VENEER SLICING MACHINE OPERATOR:: No further abnormalities noted. SKIN/MSK/EXT: No wounds/rashes/edema/amputations, no pain on palpation. Pedal pulses present B/L NEURO: AAOx3, no focal neuro deficits Discharge Plan Plan Patient Disposition: [facility] Facility Pt Being Transferred to: [facility] Service Needed for Transfer: Gastroenterology Patient condition on transfer: Stable Prescriptions/Referrals Prescriptions/Med Rec: No Action atorvastatin [Lipitor] 40 mg tablet 40 mg PO QDAY naproxen sodium [Aleve] 220 mg Tablet 220 mg PO Q12H PRN (Reason: back pain) loratadine [Claritin] 10 mg Tablet 10 mg PO QDAY Referrals: Bettina Mendiola MD [Primary Care Provider] - Patient/Caregiver Discharge Instructions Print Language: Thai Stand Alone Forms: Padma Award Info., Patient Portal Info Letter Discharge Order Discharge Orders: Discharge (Routine); Ordered 05/01/24 Ordered By: Erasmo Whitehead Quality Discharge Quality Measures VTE prophylaxis
[2024-05-01 16:00] VITALS: BP 117/74; PULSE 83; PULSE 93; RESP 17; TEMP 36.3; O2SAT 95
--- NOTE | 2024-05-01 16:05 | ESPR_ITS ---
Documentation for date of: 05/01/24 Subjective Subjective Interval history: Hemoglobin hematocrit reviewed Bed has become available at [facility] And patient ready to go there She will have a capsule endoscopy right away and then followed by the capsule endoscopy depending upon the results further evaluation Exam Vital Signs Temp Pulse Resp BP Pulse Ox O2 Del Method O2 Flow Rate 97.5 F 92 17 102/73 95 Nasal Cannula 3 05/01/24 12:00 05/01/24 12:00 05/01/24 12:00 05/01/24 12:00 05/01/24 12:00 05/01/24 12:00 04/30/24 04:00 Objective Labs 05/01/24 04:20 05/01/24 04:20 Labs: Laboratory Results - last 24 hr 05/01/24 04:20 WBC 5.3 RBC 2.43 L Hgb 8.0 L Hct 24.6 L MCV 101 H MCH 32.9 MCHC 32.5 RDW Std Deviation 50.2 H Plt Count 218 Neut % (Auto) 57 Lymph % (Auto) 27 [place] % (Auto) 10 Eos % (Auto) 5 Baso % (Auto) 1 Neut # (Auto) 3.0 Lymph # (Auto) 1.4 [place] # (Auto) 0.5 Eos # (Auto) 0.3 Baso # (Auto) 0.0 Immature Gran # (Auto) 0.02 H Absolute Nucleated RBC 0.00 Immature Gran % 0 Nucleated RBC % 0 Sodium 143 Potassium 4.2 Chloride 108 H Carbon Dioxide 28.1 Anion Gap 7 BUN 8 L Creatinine 0.7 Estim Creat Clear Calc 80.5 eGFR > 60 BUN/Creatinine Ratio 11 L Glucose 95 Calculated Osmolality 283 Calcium 8.8 Impressions Impression: # Small bowel bleed Bed has become available at [facility] and patient is being transferred Assessment & Plan A&P Narrative # Hematochezia with the clinical presentation is most likely a diverticular bleed Suggestions No reaction to colonoscopy Lets see how she does over the next 24 hours Serial CBC Clear liquid diet If patient continues to bleed will need a repeat colonoscopy and possible nuclear medicine GI bleeding scan Avoid NSAIDs Will follow the patient Time Spent With Patient Time: Total time spent is greater than 50% in coordination of care (as documented) at patient's floor/unit and/or counseling patient:
--- NOTE | 2024-05-01 18:53 | PC.NURSE ---
Report given to [facility] RN @ [phone]. EMS arrived to [facility] the pt at 1837 for transport to [facility].
== END 2024-05-01 18:37 | disposition short-term general hospital (02) | DRG 378 ==
LOC: SERX 10:31 → SERHOLD 12:55 → S3SX 13:49
PROVIDERS: Physician Assistant; Specialist; Student in an Organized Health Care Education/Training Program; Admitting Provider Internal Medicine; Emergency Provider Emergency Medicine; PCP Family Medicine; Visit Provider Student in an Organized Health Care Education/Training Program
PROC: 0DJD8ZZ Inspection of Lower Intestinal Tract, Via Natural or Artificial Opening Endoscopic (ICD-10-PCS; CPT 45378; principal; 2024-04-23 16:00)
PROC: 0DJD8ZZ Inspection of Lower Intestinal Tract, Via Natural or Artificial Opening Endoscopic (ICD-10-PCS; CPT 43239; 2024-04-23 16:00)
DX: K57.31 Diverticulosis of large intestine without perforation or abscess with bleeding (principal); D62 Acute posthemorrhagic anemia; K64.9 Unspecified hemorrhoids; K20.90 Esophagitis, unspecified without bleeding; K29.70 Gastritis, unspecified, without bleeding; E78.5 Hyperlipidemia, unspecified; N20.0 Calculus of kidney; K22.70 Barrett's esophagus without dysplasia; B96.20 Unspecified Escherichia coli [E. coli] as the cause of diseases classified elsewhere; R82.71 Bacteriuria
CPT/HCPCS: 36415; 74018; 74174; 74176; 80048; 80053; 80061; 81001; 83690; 83735; 84100; 84484; 85014; 85018; 85025; 85610; 85730; 86850; 86900; 86901; 86923; 87077; 87086; 87186; 96374; 99285; A4649; J1200; J2250; J2470; J3010; Q9967; A9270

== ENCOUNTER → 2024-05-09 | Outpatient (CLI) | payer MEDICARE, BC, SELFPAY ==
[2024-05-09 11:21] LABS: Basophils % (Auto) 1 % (0-2.5); Eosinophils # (Auto) 0.1 Thou/mm3 (0.0-0.5); Eosinophils % (Auto) 1 % (0-10); Hematocrit 28.8 % (36.0-46.0); Hemoglobin 9.4 g/dL (12.0-16.0); Immature Granulocytes % (Auto) 0 % (0-0); Lymphocytes # (Auto) 0.7 Thou/mm3 (1.0-4.8); Lymphocytes % (Auto) 15 % (10-50); Mean Corpuscular HGB Conc 32.6 g/dl (31.0-37.0); Mean Corpuscular Hemoglobin 32.1 pg (25.0-35.0); Mean Corpuscular Volume 98 fL (80-100); Monocytes # (Auto) 0.3 Thou/mm3 (0.0-0.8); Monocytes % (Auto) 7 % (0-12); Neutrophils # (Auto) 3.5 Thou/mm3 (1.8-7.7); Neutrophils % (Auto) 76 % (37-80); Nucleated Red Blood Cell % 0 /100 WBC (0); Platelet Count 213 Thou/mm3 (140-440); RDW Standard Deviation 48.5 fL (36.4-46.3); Red Blood Count 2.93 Miln/mm3 (4.00-5.20); White Blood Count 4.6 Thou/mm3 (3.6-11.0)
[2024-05-09 11:34] LABS: Alanine Aminotransferase 12 U/L (10-49); Albumin, Serum 3.8 gm/dL (3.4-4.8); Albumin/Globulin Ratio 1.6 (1.2-2.2); Alkaline Phosphatase 112 U/L (46-116); Anion Gap 8 (7-16); Aspartate Amino Transferase 17 U/L (0-34); BUN/Creatinine Ratio 11 Ratio (12-20); Bilirubin,Total 0.6 mg/dL (0.3-1.2); Blood Urea Nitrogen 11 mg/dL (9-23); Calcium (Corrected) 9.2 mg/dL (8.5-10.1); Carbon Dioxide 25.2 mMol/L (20.0-31.0); Cardiac Risk Estimate 3.1 RATIO (3.7-5.6); Chloride 107 mMol/L (98-107); Cholesterol 125 mg/dL (132-200); Globulin 2.4 gm/dL (2.3-3.5); Glucose 103 mg/dL (74-106); HDL Cholesterol 40 mg/dL (40-60); LDL Cholesterol,Calculated 69 mg/dL (0-130); Osmolality,Calculated 278 (275-295); Potassium 3.5 mMol/L (3.4-5.1); Sodium 140 mMol/L (136-145); Total Protein 6.2 gm/dL (5.7-8.2); Triglycerides 78 mg/dL (30-150); eGFR > 60 See Note
[2024-05-09 12:10] LABS: Ferritin 21 ng/mL (7.3-270.7); Iron 39 mcg/dL (50-170); Percent Iron Saturation 13 % (20-55); Total Iron Binding Capacity 295 mcg/dL (250-425); Unsaturated Iron Binding 256 (225-295)
[2024-05-09 14:31] LABS: Urea Breath Test Negative (Negative)
== END | disposition home or self-care (01) ==
PROVIDERS: PCP Physician Assistant; Referring Provider Physician Assistant; Visit Provider Physician Assistant
DX: K92.2 Gastrointestinal hemorrhage, unspecified (principal); D64.9 Anemia, unspecified; E78.5 Hyperlipidemia, unspecified
CPT/HCPCS: 36415; 80053; 80061; 82728; 83013; 83014; 83540; 83550; 85025

== ENCOUNTER → 2024-05-23 | Outpatient (CLI) | payer MEDICARE, BC, SELFPAY ==
[2024-05-23 10:06] LABS: Basophils # (Auto) 0.1 Thou/mm3 (0.0-0.2); Basophils % (Auto) 1 % (0-2.5); Eosinophils # (Auto) 0.2 Thou/mm3 (0.0-0.5); Eosinophils % (Auto) 2 % (0-10); Hematocrit 33.7 % (36.0-46.0); Hemoglobin 10.5 g/dL (12.0-16.0); Immature Granulocytes % (Auto) 0 % (0-0); Immature Granulocytes Auto 0.02 Thou/mm3 (0.00-0.00); Lymphocytes # (Auto) 1.3 Thou/mm3 (1.0-4.8); Lymphocytes % (Auto) 17 % (10-50); Mean Corpuscular HGB Conc 31.2 g/dl (31.0-37.0); Mean Corpuscular Hemoglobin 30.2 pg (25.0-35.0); Mean Corpuscular Volume 97 fL (80-100); Monocytes # (Auto) 0.5 Thou/mm3 (0.0-0.8); Monocytes % (Auto) 7 % (0-12); Neutrophils # (Auto) 5.2 Thou/mm3 (1.8-7.7); Neutrophils % (Auto) 72 % (37-80); Nucleated Red Blood Cell % 0 /100 WBC (0); Platelet Count 261 Thou/mm3 (140-440); RDW Standard Deviation 47.8 fL (36.4-46.3); Red Blood Count 3.48 Miln/mm3 (4.00-5.20); White Blood Count 7.2 Thou/mm3 (3.6-11.0)
[2024-05-23 10:19] LABS: Alanine Aminotransferase 19 U/L (10-49); Albumin, Serum 4.2 gm/dL (3.4-4.8); Albumin/Globulin Ratio 1.7 (1.2-2.2); Alkaline Phosphatase 92 U/L (46-116); Anion Gap 8 (7-16); Aspartate Amino Transferase 23 U/L (0-34); BUN/Creatinine Ratio 21 Ratio (12-20); Bilirubin,Total 0.3 mg/dL (0.3-1.2); Blood Urea Nitrogen 17 mg/dL (9-23); Calcium 9.4 mg/dL (8.3-10.6); Calcium (Corrected) 9.4 mg/dL (8.5-10.1); Cardiac Risk Estimate 2.9 RATIO (3.7-5.6); Chloride 108 mMol/L (98-107); Cholesterol 146 mg/dL (132-200); Creatinine (Component) 0.8 mg/dL (0.6-1.3); Globulin 2.5 gm/dL (2.3-3.5); Glucose 102 mg/dL (74-106); HDL Cholesterol 51 mg/dL (40-60); LDL Cholesterol,Calculated 78 mg/dL (0-130); Osmolality,Calculated 288 (275-295); Potassium 4.5 mMol/L (3.4-5.1); Sodium 144 mMol/L (136-145); Total Protein 6.7 gm/dL (5.7-8.2); Triglycerides 85 mg/dL (30-150); eGFR > 60 See Note
[2024-05-23 10:38] LABS: Ferritin 11 ng/mL (7.3-270.7)
[2024-05-23 10:48] LABS: Iron 27 mcg/dL (50-170)
[2024-05-23 11:11] LABS: Urea Breath Test Negative (Negative)
== END | disposition home or self-care (01) ==
LOC: COPL 08:42
PROVIDERS: PCP Family Medicine; Referring Provider Physician Assistant; Visit Provider Physician Assistant
DX: K92.2 Gastrointestinal hemorrhage, unspecified (principal); D64.9 Anemia, unspecified; E78.5 Hyperlipidemia, unspecified
CPT/HCPCS: 36415; 80053; 80061; 82728; 83013; 83014; 83540; 85025

== ENCOUNTER → 2024-06-20 | Outpatient (CLI) | payer MEDICARE, BC, SELFPAY ==
[2024-06-20 13:14] LABS: Basophils # (Auto) 0.1 Thou/mm3 (0.0-0.2); Basophils % (Auto) 1 % (0-2.5); Eosinophils # (Auto) 0.1 Thou/mm3 (0.0-0.5); Eosinophils % (Auto) 1 % (0-10); Hematocrit 33.8 % (36.0-46.0); Hemoglobin 10.7 g/dL (12.0-16.0); Immature Granulocytes % (Auto) 0 % (0-0); Immature Granulocytes Auto 0.02 Thou/mm3 (0.00-0.00); Lymphocytes # (Auto) 1.6 Thou/mm3 (1.0-4.8); Lymphocytes % (Auto) 24 % (10-50); Mean Corpuscular HGB Conc 31.7 g/dl (31.0-37.0); Mean Corpuscular Hemoglobin 28.7 pg (25.0-35.0); Mean Corpuscular Volume 91 fL (80-100); Monocytes # (Auto) 0.7 Thou/mm3 (0.0-0.8); Monocytes % (Auto) 10 % (0-12); Neutrophils # (Auto) 4.4 Thou/mm3 (1.8-7.7); Neutrophils % (Auto) 64 % (37-80); Nucleated Red Blood Cell % 0 /100 WBC (0); Platelet Count 222 Thou/mm3 (140-440); RDW Standard Deviation 46.7 fL (36.4-46.3); Red Blood Count 3.73 Miln/mm3 (4.00-5.20); White Blood Count 6.9 Thou/mm3 (3.6-11.0)
== END | disposition home or self-care (01) ==
PROVIDERS: PCP Family Medicine; Referring Provider Family Medicine; Visit Provider Family Medicine
DX: D64.9 Anemia, unspecified (principal)
CPT/HCPCS: 36415; 85025

== ENCOUNTER → 2024-07-05 | Outpatient (BNVA) | payer MEDICARE, BC, SELFPAY | END | disposition home or self-care (01) | PROVIDERS: PCP Family Medicine; Referring Provider Family Medicine; Visit Provider Urology | DX: N20.0 Calculus of kidney (principal); D64.9 Anemia, unspecified | CPT/HCPCS: 81003; 99212; G0463 ==

== ENCOUNTER → 2024-08-22 | Outpatient (CLI) | payer MEDICARE, BC, SELFPAY ==
[2024-08-22 11:42] LABS: Basophils # (Auto) 0.1 Thou/mm3 (0.0-0.2); Basophils % (Auto) 1 % (0-2.5); Eosinophils # (Auto) 0.2 Thou/mm3 (0.0-0.5); Eosinophils % (Auto) 3 % (0-10); Hematocrit 41.4 % (36.0-46.0); Hemoglobin 13.3 g/dL (12.0-16.0); Immature Granulocytes % (Auto) 0 % (0-0); Immature Granulocytes Auto 0.01 Thou/mm3 (0.00-0.00); Lymphocytes # (Auto) 1.4 Thou/mm3 (1.0-4.8); Lymphocytes % (Auto) 28 % (10-50); Mean Corpuscular HGB Conc 32.1 g/dl (31.0-37.0); Mean Corpuscular Hemoglobin 28.2 pg (25.0-35.0); Mean Corpuscular Volume 88 fL (80-100); Monocytes # (Auto) 0.5 Thou/mm3 (0.0-0.8); Monocytes % (Auto) 9 % (0-12); Neutrophils % (Auto) 59 % (37-80); Nucleated Red Blood Cell % 0 /100 WBC (0); Platelet Count 167 Thou/mm3 (140-440); RDW Standard Deviation 63.3 fL (36.4-46.3); Red Blood Count 4.71 Miln/mm3 (4.00-5.20); White Blood Count 5.1 Thou/mm3 (3.6-11.0)
== END | disposition home or self-care (01) ==
PROVIDERS: PCP Family Medicine; Referring Provider Family Medicine; Visit Provider Family Medicine
DX: K92.2 Gastrointestinal hemorrhage, unspecified (principal); D64.9 Anemia, unspecified
CPT/HCPCS: 36415; 85025

== ENCOUNTER → 2024-08-29 | Outpatient (CLI) | payer MEDICARE, BC, SELFPAY ==
--- NOTE | 2024-08-29 15:30 | XR_ITS ---
Examination: Ultrasound abdominal aorta Technique: Grayscale sonographic images abdominal aorta Exam date and time: August 29, 2024 1827 hrs. Indications: Diagnosis abdominal aortic aneurysm Findings: Transverse dimension proximal aorta 2.0 cm the aorta 1.9 cm distal aorta 1.8 cm with right iliac 1.0 cm left iliac 1.1 cm Impression: Negative for abdominal aortic aneurysm
== END | disposition home or self-care (01) ==
PROVIDERS: PCP Family Medicine; Referring Provider Family Medicine; Visit Provider Family Medicine
DX: I71.40 Abdominal aortic aneurysm, without rupture, unspecified (principal)
CPT/HCPCS: 76770

== ENCOUNTER → 2024-11-22 | Outpatient (CLI) | payer MEDICARE, BC, SELFPAY ==
[2024-11-22 09:57] LABS: Basophils # (Auto) 0.1 Thou/mm3 (0.0-0.2); Basophils % (Auto) 1 % (0-2.5); Eosinophils # (Auto) 0.2 Thou/mm3 (0.0-0.5); Eosinophils % (Auto) 3 % (0-10); Hematocrit 40.1 % (36.0-46.0); Hemoglobin 13.7 g/dL (12.0-16.0); Immature Granulocytes Auto 0.01 Thou/mm3 (0.00-0.00); Lymphocytes # (Auto) 1.6 Thou/mm3 (1.0-4.8); Lymphocytes % (Auto) 28 % (10-50); Mean Corpuscular HGB Conc 34.2 g/dl (31.0-37.0); Mean Corpuscular Hemoglobin 32.2 pg (25.0-35.0); Mean Corpuscular Volume 94 fL (80-100); Monocytes # (Auto) 0.5 Thou/mm3 (0.0-0.8); Monocytes % (Auto) 8 % (0-12); Neutrophils # (Auto) 3.3 Thou/mm3 (1.8-7.7); Neutrophils % (Auto) 60 % (37-80); Nucleated Red Blood Cell # 0.00 Thou/mm3 (0.00-0.00); Nucleated Red Blood Cell % 0 /100 WBC (0); Platelet Count 164 Thou/mm3 (140-440); RDW Standard Deviation 45.4 fL (36.4-46.3); Red Blood Count 4.25 Miln/mm3 (4.00-5.20); White Blood Count 5.6 Thou/mm3 (3.6-11.0)
[2024-11-22 10:08] LABS: Alanine Aminotransferase 16 U/L (10-49); Albumin, Serum 4.0 gm/dL (3.4-4.8); Albumin/Globulin Ratio 1.4 (1.2-2.2); Alkaline Phosphatase 80 U/L (46-116); Anion Gap 7 (7-16); Aspartate Amino Transferase 26 U/L (0-34); BUN/Creatinine Ratio 13 Ratio (12-20); Bilirubin,Total 0.7 mg/dL (0.3-1.2); Blood Urea Nitrogen 10 mg/dL (9-23); Calcium 9.3 mg/dL (8.3-10.6); Calcium (Corrected) 9.3 mg/dL (8.5-10.1); Carbon Dioxide 28.2 mMol/L (20.0-31.0); Cardiac Risk Estimate 2.6 RATIO (3.7-5.6); Chloride 110 mMol/L (98-107); Cholesterol 114 mg/dL (132-200); Creatinine (Component) 0.8 mg/dL (0.6-1.3); Globulin 2.8 gm/dL (2.3-3.5); Glucose 98 mg/dL (74-106); HDL Cholesterol 44 mg/dL (40-60); LDL Cholesterol,Calculated 55 mg/dL (0-130); Osmolality,Calculated 287 (275-295); Potassium 4.4 mMol/L (3.4-5.1); Sodium 145 mMol/L (136-145); Total Protein 6.8 gm/dL (5.7-8.2); Triglycerides 74 mg/dL (30-150); eGFR > 60 See Note
== END | disposition home or self-care (01) ==
LOC: COPL 09:02
PROVIDERS: PCP Family Medicine; Referring Provider Family Medicine; Visit Provider Family Medicine
DX: I71.40 Abdominal aortic aneurysm, without rupture, unspecified (principal); D64.9 Anemia, unspecified; E78.2 Mixed hyperlipidemia
CPT/HCPCS: 36415; 80053; 80061; 85025

== ENCOUNTER → 2025-01-03 | Outpatient (BNVA) | payer MEDICARE, BC, SELFPAY | END | disposition home or self-care (01) | PROVIDERS: PCP Family Medicine; Referring Provider Family Medicine; Visit Provider Urology | DX: N20.0 Calculus of kidney (principal); E78.00 Pure hypercholesterolemia, unspecified; E66.9 Obesity, unspecified; Z68.30 Body mass index [BMI] 30.0-30.9, adult | CPT/HCPCS: 81003; 99212; G0463 ==

== ENCOUNTER → 2025-03-16 | Outpatient (CLI) | payer MEDICARE, BC, SELFPAY ==
--- NOTE | 2025-03-16 14:24 | XR_ITS ---
Examination: CT abdomen with intravenous contrast CT pelvis with intravenous contrast 2-D coronal reconstructions 2-D sagittal reconstructions Date and time of exam: March 16, 2025, 1616 hours INDICATIONS: History of kidney stones with onset flank pain on the left beginning 1 week ago. CTDI: vol (mGy) 18.1 DLP: (mGycm) 985 Technique: Multiple axial sections of the abdomen and pelvis have been obtained. 64 slice high-resolution scanner used. 3 mm axial sections have been obtained, post intravenous injection 60 cc [id number] 2-D sagittal, coronal reconstructions obtained. Low dose protocols were performed. One or more of the following dose reduction techniques were used; automated exposure control, adjustment of the mA and/or KV according to patient size, use of iterative reconstruction technique. Findings: No focal liver or splenic lesions Absent gallbladder No common bile duct stones No pancreatic mass 22 mm upper pole staghorn left renal calculus No hydronephrosis or ureteral calculi Aortic calcification no aneurysmal dilatation No pericecal inflammatory change Scattered colonic diverticulosis. No pelvic mass No bladder mass or bladder calculi Severe osteopenia with advanced degenerative disc disease L5-S1 IMPRESSION: Large, 22 mm, upper pole staghorn nonobstructing left renal calculus
[2025-03-16 14:27] LABS: Anion Gap 11 (7-16); BUN/Creatinine Ratio 14 Ratio (12-20); Blood Urea Nitrogen 10 mg/dL (9-23); Calcium 9.1 mg/dL (8.3-10.6); Carbon Dioxide 26.3 mMol/L (20.0-31.0); Chloride 107 mMol/L (98-107); Creatinine (Component) 0.7 mg/dL (0.6-1.3); Glucose 98 mg/dL (74-106); Osmolality,Calculated 285 (275-295); Potassium 4.1 mMol/L (3.4-5.1); Sodium 144 mMol/L (136-145); eGFR > 60 See Note
== END | disposition home or self-care (01) ==
LOC: SCAT 13:46
PROVIDERS: PCP Family Medicine; Referring Provider Urology; Visit Provider Urology
DX: N20.0 Calculus of kidney (principal)
CPT/HCPCS: 36415; 74177; 80048; A4649; Q9967

== ENCOUNTER 2025-03-23 19:44 | Observation (INO) | payer MEDICARE, BC, SELFPAY ==
--- NOTE | 2025-03-22 10:50 | EKG_ITS ---
[facility] Test Date: 2025-03-22 Pat Name: JOSÉ MANUEL DUMONT Department: Room: - Gender: Female Supervisor Fine Grading: MARILY : 1950 Requested By: Octaviano An Order Number: [id number] Reading MD: Octaviano An Measurements Intervals [place] Rate: 58 P: 51 MO: 160 QRS: 43 QRSD: 85 T: 44 QT: 410 QTc: 403 Interpretive Statements SINUS BRADYCARDIA No previous ECG available for comparison /store/S0/[id number]
[2025-03-22 10:57] VITALS: BMI 30.1
[2025-03-22 13:35] LABS: Alanine Aminotransferase 16 U/L (10-49); Albumin, Serum 4.1 gm/dL (3.4-4.8); Albumin/Globulin Ratio 1.7 (1.2-2.2); Alkaline Phosphatase 78 U/L (46-116); Anion Gap 10 (7-16); Aspartate Amino Transferase 26 U/L (0-34); BUN/Creatinine Ratio 10 Ratio (12-20); Bilirubin,Total 0.5 mg/dL (0.3-1.2); Blood Urea Nitrogen 8 mg/dL (9-23); Calcium 9.2 mg/dL (8.3-10.6); Calcium (Corrected) 9.2 mg/dL (8.5-10.1); Carbon Dioxide 27.8 mMol/L (20.0-31.0); Chloride 108 mMol/L (98-107); Creatinine (Component) 0.8 mg/dL (0.6-1.3); Estimated Creatinine Clearance 62.5 mL/min (>60); Globulin 2.4 gm/dL (2.3-3.5); Glucose 102 mg/dL (74-106); Osmolality,Calculated 288 (275-295); Potassium 4.3 mMol/L (3.4-5.1); Sodium 146 mMol/L (136-145); Total Protein 6.5 gm/dL (5.7-8.2); eGFR > 60 See Note
--- NOTE | 2025-03-22 16:03 | SUR.PREOP ---
Pt notified to come in at 0730 tomorrow.
[2025-03-23] VITALS (11 sets, daily range): BP systolic 131–156; BP diastolic 67–82; PULSE 59–94; RESP 15–20; TEMP 36.2–37.1; O2SAT 96–100; BMI 29.6; BMI 31.8
[2025-03-23] MEDS: VANCOMYCIN/NS 1 GM IVPB 200 ML IV (11:34)
--- NOTE | 2025-03-23 12:00 | XR_ITS ---
EXAMINATION: Retrograde pyelogram left with without KUB AP abdomen 47 views Fluoroscopy Date and time: March 23, 2025, 1528 hours INDICATIONS: History flank pain, large staghorn calculus upper pole calyces left kidney, stone manipulation today TECHNIQUE AND FINDINGS: 47 spot fluoroscopic films of the abdomen Opacification of the left renal collecting system with visualization of multiple left renal calculi Nephrolithotomy noted Fluoroscopy 422 seconds, radiation dose 107.06 mGy IMPRESSION: Retrograde pyelogram as above
--- NOTE | 2025-03-23 19:21 | SUR.PHASEI ---
1921: received pt from OR via consuelo. received report from ALFRED Sam and OCTAVIO Simpson. oral airway in place. pt sleeping. no s/s of resp. distress or discomfort. no s/s of pain or discomfort. dressing to left side of torso clean, dry and intact. nephrostomy tube in place with bag with red blood urine output. padron cath in place with bloody urine output.
--- NOTE | 2025-03-23 19:36 | SUR.PHASEI ---
1936: pt able to open mouth when ask. oral airway removed at this time.
--- NOTE | 2025-03-23 19:50 | SUR.PHASEI ---
1950: pt arousable but drift back to sleep. no s/s of resp. distress or discomfort. no s/s of pain or discomfort. dressing to left side of torso clean, dry and intact. nephrostomy tube in place with bag with red blood urine output. padron cath in place intact with bloody urine output.
[2025-03-23] MEDS: ACETAMINOPHEN IVPB 1,000 MG/100 ML VIAL 250 MG IV (20:07)
[2025-03-23] MEDS: fentaNYL CIT INJ 50 mCg/ML AMP 2ML IVP (20:26)
--- NOTE | 2025-03-23 20:35 | SUR.PHASEII ---
2034: report given to ALFRED Noe
[2025-03-23] MEDS: ONDANSETRON INJ 2 MG/ML INJ 2 ML 4 MG IVP (20:43)
--- NOTE | 2025-03-23 20:55 | SUR.PHASEII ---
2054: pt transfer to room 381 via gurney with son at bedside. alert and oriented. no s/s of resp. distress or discomfort. no s/s of pain or discomfort. dressing to left side of torso clean, dry and intact. nephrostomy tube in place with bag with red blood urine output. padron cath in place with bloody urine output.
--- NOTE | 2025-03-23 22:12 | PD.RESHP ---
Documentation for date of: 03/23/25 [facility] History of Present Illness Chief complaint: Staghorn Calculi History of present illness: This is a 74-year-old female with past medical history of staghorn calculi, hyperlipidemia presented to the hospital for her scheduled percutaneous nephrolithotomy for removal of her nonobstructive staghorn calculi 2.5 to 3 cm Near upper pole of left kidney. She has been having staghorn PCNL calculi since a long time and following Dr. Borja since last 2 years. She denies any urinary frequency, urinary urgency, burning micturition, hematuria, abdominal pain, flank pain. Patient was done on 03/23/2025 without complications. Patient was admitted for postprocedure observation and pain management at the request of urology service. She complains of pain at the operation site and nausea feeling but denies any vomiting when I visited her. Past medical history: Renal calculi, hyperlipidemia, GI bleed on 05/17. Past surgical history: Left knee surgery, foot and back surgery, cholecystectomy, cervical fusion Family history: Esophageal cancer in mother Allergic history: NKDA Social history: Denies smoking alcohol or any other drug usage Review of Systems Review of Systems Systems Reviewed: All systems reviewed, normal except as documented Exam Vital Signs Temp Pulse Resp BP Pulse Ox O2 Flow Rate 97.5 F 67 20 148/67 H 100 3 03/23/25 20:50 03/23/25 20:50 03/23/25 20:50 03/23/25 20:50 03/23/25 20:50 03/23/25 20:50 Narrative Exam GENERAL: NAD, AAOx3 HEENT: Moist mucosa. Eyes open, symmetrical, & clear CARDIO: Rapid regular rhythm Noted. No Murmurs. PULM: No noted coughing/dyspnea CTA B/L, no R/W/R GI: Abdomen soft, nondistended.Tender over the operational site. SKIN/MSK/EXT: No wounds/rashes/amputations, no pain on palpation.No Edema. Pedal pulses present B/L NEURO: AAOx3, no focal neuro deficits, able to move all 4 extremities Results: Labs 03/24/25 05:44 03/24/25 05:44 Quality Measures Quality Measures VTE prophylaxis Advance care planning discussed with:: patient Medications Home Medications and Allergies Home Medications ?Medication ?Instructions ?Recorded ?Confirmed ?Type loratadine 10 mg tablet (Claritin) 10 mg PO QDAY 06/30/22 03/22/25 History multivitamin (Daily Multi-Vitamin 1 tab PO QAM 03/22/25 03/22/25 History tablet) rosuvastatin 40 mg tablet (Crestor) 40 mg PO DAILY 03/22/25 03/22/25 History Allergies Allergy/AdvReac Type Severity Reaction Status Date / Time No Known Allergies Allergy Verified 03/23/25 08:24 Visit Medications Acetaminophen (Acetaminophen 325 Mg Tablet) 650 mg PO Q6H PRN PRN Reason: Fever >101.5 or pain 1-3 Stop: 04/22/25 19:43 Levofloxacin (Levofloxacin 250 Mg Tablet) 750 mg PO DAILY VALARIE Stop: 03/27/25 19:59 Magnesium Hydroxide (Milk Of Magnesia Susp 30 Ml Udc) 30 ml PO QDAY PRN; Protocol PRN Reason: CONSTIPATION Stop: 04/22/25 19:43 Morphine Sulfate (Morphine Sulf Inj 4 Mg/Ml Vial) 2 mg IVP Q4HR PRN PRN Reason: pain 7-10 Stop: 03/28/25 19:51 Ondansetron HCl (Ondansetron Inj 2 Mg/Ml Inj 2 Ml) 4 mg IVP Q4H PRN; Protocol PRN Reason: NAUSEA OR VOMITING Stop: 04/22/25 22:04 Discontinued Medications Albuterol/Ipratropium (Albuterol/Ipratropium (Duoneb) Rt Opal 3 Ml Nebu) 3 ml INH X1 ONE Stop: 03/23/25 19:22 Last Admin: 03/23/25 19:49 Dose: Not Given Fentanyl Citrate (Fentanyl Cit Inj 50 Mcg/Ml Amp 2ml) 50 mcg IVP Q5M PRN PRN Reason: PAIN SCALE 7-10 (Severe Stop: 03/23/25 23:00 Last Admin: 03/23/25 20:26 Dose: 50 mcg Gentamicin Sulfate 160 mg/ (Sodium Chloride) 104 mls @ 100 mls/hr IV X1 ONE Stop: 03/23/25 07:02 Vancomycin HCl 1,000 mg/ (Sodium Chloride) 250 mls @ 150 mls/hr IV X1 ONE Stop: 03/23/25 07:39 Lactated Ringer's (Lactated Ringers) 1,000 mls @ 20 mls/hr IV .Q24H ONE Stop: 03/24/25 05:59 Vancomycin/Sodium Chloride (Vancomycin/Ns 1 Gm Ivpb) 200 mls @ 120 mls/hr IV X1 ONE Stop: 03/23/25 12:39 Last Admin: 03/23/25 11:34 Dose: 120 mls/hr Acetaminophen (Ofirmev Inj) 1,000 mg in 100 mls @ 250 mls/hr IV Q6HR PRN PRN Reason: PAIN 1-6 (mild-mod Stop: 03/24/25 19:04 Last Infusion: 03/23/25 20:43 Dose: Infused Ondansetron HCl (Ondansetron Inj 2 Mg/Ml Inj 2 Ml) 4 mg IVP Q6HR PRN; Protocol PRN Reason: NAUSEA OR VOMITING Stop: 03/24/25 19:04 Last Admin: 03/23/25 20:43 Dose: 4 mg Assessment & Plan Plan This is a 74-year-old female with past medical history of staghorn calculi, hyperlipidemia presented to the hospital for her scheduled percutaneous nephrolithotomy for removal of her nonobstructive staghorn calculi 2.5 to 3 cm Near upper pole of left kidney. # S/P percutaneous nephrolithotomy on 03/23 # Left nonobstructive renal staghorn calculi 2.5 to 3 cm upper pole s/p nephrolithotomy CT urogram on 03/16 showing large 22 mm upper pole Gabo nonobstructing left renal calculi Patient successfully underwent PCNL on 03/23 without complications Admitted for post PCNL observation and pain management as per urology request ?Starting on antibiotics levofloxacin 750 mg p.o. daily to prevent any infectious complications ?IV morphine 2 mg IV every 4 hours as needed for her pain -IV ondansetron 4 mg every 4 hours as needed for nausea. ?Follow-up with labs and stone analysis. ?Pain control as required. # Hyperlipidemia Takes Crestor at home ?Continue to monitor and start medication # History of GI bleed History of GI bleed on 05/17 ?Continue to monitor outpatient Code status: Full DVT prophylaxis: SCD Diet: Renal Diet Wan: None Lines: PIV Supplemental O2: none Disposition: Observation I discussed this case with my senior Dr. Liriano and my attending Dr. Izquierdo. Juana Lagunas MD PGY1. Attending Provider Attestation/Addendum After examination of the patient and review of the clinical data I feel that this patient needs admission to the hospital for further treatment/evaluation. Plan of care discussed with patient and is in agreement. I Fernando Izquierdo MD, attest that I was physically present for johnston portions of evaluation, and examined patient, labs and imagings and plan of care were discussed with IM residents team, and I agree with the findings and plans documented above.
--- NOTE | 2025-03-23 23:03 | XR_ITS ---
EXAMINATION: AP chest single view TECHNIQUE: AP portable semiupright chest single view Date and time: March 23, 2025, 11:16 p.m., comparison January 07, 2013 INDICATIONS: Post surgery SOB today. FINDINGS: Normal heart size [place] over the left hemithorax No lobar pneumonia. Prominent osteopenia IMPRESSION: No pneumonia or pulmonary edema
[2025-03-23] MEDS: MORPHINE SULF INJ 4 MG/ML VIAL 2 MG IVP (23:09)
--- NOTE | 2025-03-23 23:53 | CTCCONSULT_ITS ---
RE: JOSÉ MANUEL DUMONT : 1950 DATE OF CONSULTATION: 03/23/2025 PREPROCEDURE DIAGNOSIS: 3.5 x 2.5 cm upper pole partial staghorn stone. POSTPROCEDURE DIAGNOSIS: Status post percutaneous renal surgery, left. PROCEDURE PERFORMED: Fluoroscopic imaging of the urinary tract, left; retrograde pyelogram under fluoroscopic control; retrograde intrarenal surgery with initial laser stone fragmentation; percutaneous access to upper pole with dilation to 30-Sammarinese and percutaneous renal surgery with pneumatic and ultrasound stone fragmentation and stone removal with placement of 6-Sammarinese antegrade Kumpe catheter coaxially contained in 24-Sammarinese renal Wan catheter; antegrade pyelogram under fluoroscopic control, left; placement of bladder Wan catheter. SURGEON: Arden Mary MD HAT SPRAYER SURGEON: Alverto Lester MD ANESTHESIA: General. INDICATIONS: This patient is a 74-year-old lady who is referred for subspecialty endourologic care of a 2.5 x 3.5 segmental partial stone filling the entire dilated upper pole of her left kidney. We have discussed with the patient the indication for treatment, risk / benefits /alternatives of the various treatment modalities and the patient consented to combined retrograde and percutaneous intrarenal surgery. DESCRIPTION OF FINDINGS: Fluoroscopically the stones are readily identified. Endoscopically, bladder mucosa was unremarkable. Retrograde pyelogram of the left upper urinary shows a normal renal pelvis system and normal caliber ureter. The upper pole is completely filled by the stone. There is no significant hydronephrosis of the upper pole. Endoscopic evaluation of the upper tract with flexible retrograde intrarenal surgery shows no abnormalities of the kidney with the exception of the upper pole stone. There is a relatively narrow infundibulum to the upper pole. The upper pole is filled with stone material. DESCRIPTION OF PROCEDURE: A ureteral access sheath is utilized and an attempt is made to assess the response of the stone to thulium laser energy. It is apparent that the stone responds slowly to the laser energy and therefore the intraoperative decision was made to proceed with a percutaneous approach. The ureteral access sheath was secured to a 16-Sammarinese Wan catheter with a silk suture. The patient was then repositioned in prone position and the left flank was prepped and draped in a sterile fashion. Percutaneous access is established under fluoroscopic control. Also, a flexible ureteroscope was advanced to the upper pole to visualize the access into the kidney. A hydrophilic wire is readily placed in the renal pelvis where it is retrieved from the retrograde approach using a basket and then a [id number] wire is established. This is followed by advancing a Kumpe catheter all the way from the kidney through the access sheath and the hydrophilic wire is exchanged for a super stiff wire. Next, a dual-lumen catheter was utilized to place a second wire as a working wire and over the working wire balloon dilation of the percutaneous tract to 30-Sammarinese was established followed by placement of a 30-Sammarinese sheath. Following this, percutaneous surgery was performed using a rigid nephroscope and the energy source was pneumatic and ultrasound. All stone material was completely fragmented and then removed with rigid and flexible instrumentation. After this accomplished, the Kumpe catheter was advanced on the working wire and positioned to sit down in the bladder and a 24 Fr Wan catheter was placed coaxially in the upper pole dilated calyx. The Wan catheter was secured to the skin with a 0 Vicryl suture. The patient was awakened and returned to recovery where she arrived in stable condition. COMPLICATIONS: None. SPECIMENS: Sent for clinical analysis. DISPOSITION: The patient will be admitted for IV antibiotics, IV fluids, and pain management. Given the upper pole access, a chest x-ray will be obtained in the recovery setting. The plan is to discharge the patient in the morning if stable. Followup will be with Dr. Lester's [facility] office in about 10 days for removal of the nephrostomy tube and ureteral stent. cc: Alverto Lester MD DT: 19:17:26 TT: 23:23:00 Ref: [id number] - TID: [id number] [facility]
[2025-03-24] VITALS (8 sets, daily range): BP systolic 118–141; BP diastolic 59–68; PULSE 72–86; RESP 16–20; TEMP 36.1–37.3; O2SAT 92–99
[2025-03-24 00:22] LABS: Alanine Aminotransferase 13 U/L (10-49); Albumin, Serum 3.7 gm/dL (3.4-4.8); Albumin/Globulin Ratio 1.5 (1.2-2.2); Alkaline Phosphatase 74 U/L (46-116); Anion Gap 9 (7-16); Aspartate Amino Transferase 25 U/L (0-34); BUN/Creatinine Ratio 11 Ratio (12-20); Bilirubin,Total 0.7 mg/dL (0.3-1.2); Blood Urea Nitrogen 8 mg/dL (9-23); Calcium 8.9 mg/dL (8.3-10.6); Calcium (Corrected) 9.1 mg/dL (8.5-10.1); Carbon Dioxide 23.9 mMol/L (20.0-31.0); Chloride 106 mMol/L (98-107); Creatinine (Component) 0.7 mg/dL (0.6-1.3); Estimated Creatinine Clearance 70.9 mL/min (>60); Globulin 2.4 gm/dL (2.3-3.5); Glucose 137 mg/dL (74-106); Osmolality,Calculated 277 (275-295); Potassium 3.6 mMol/L (3.4-5.1); Sodium 139 mMol/L (136-145); Total Protein 6.1 gm/dL (5.7-8.2); eGFR > 60 See Note
[2025-03-24 00:57] LABS: Basophils # (Auto) 0.1 Thou/mm3 (0.0-0.2); Basophils % (Auto) 0 % (0-2.5); Eosinophils # (Auto) 0.0 Thou/mm3 (0.0-0.5); Eosinophils % (Auto) 0 % (0-10); Hematocrit 38.8 % (36.0-46.0); Hemoglobin 13.2 g/dL (12.0-16.0); Immature Granulocytes Auto 0.04 Thou/mm3 (0.00-0.00); Lymphocytes # (Auto) 0.7 Thou/mm3 (1.0-4.8); Lymphocytes % (Auto) 5 % (10-50); Mean Corpuscular HGB Conc 34.0 g/dl (31.0-37.0); Mean Corpuscular Hemoglobin 33.4 pg (25.0-35.0); Mean Corpuscular Volume 98 fL (80-100); Monocytes # (Auto) 1.0 Thou/mm3 (0.0-0.8); Monocytes % (Auto) 7 % (0-12); Neutrophils # (Auto) 11.9 Thou/mm3 (1.8-7.7); Neutrophils % (Auto) 87 % (37-80); Nucleated Red Blood Cell # 0.00 Thou/mm3 (0.00-0.00); Nucleated Red Blood Cell % 0 /100 WBC (0); Platelet Count 137 Thou/mm3 (140-440); RDW Standard Deviation 46.3 fL (36.4-46.3); Red Blood Count 3.95 Miln/mm3 (4.00-5.20); White Blood Count 13.7 Thou/mm3 (3.6-11.0)
[2025-03-24] MEDS: ACETAMINOPHEN 325 MG TABLET 650 MG PO (04:20)
[2025-03-24 06:16] LABS: Basophils # (Auto) 0.0 Thou/mm3 (0.0-0.2); Basophils % (Auto) 0 % (0-2.5); Eosinophils # (Auto) 0.0 Thou/mm3 (0.0-0.5); Eosinophils % (Auto) 0 % (0-10); Hematocrit 37.3 % (36.0-46.0); Hemoglobin 12.4 g/dL (12.0-16.0); Immature Granulocytes Auto 0.03 Thou/mm3 (0.00-0.00); Lymphocytes # (Auto) 0.8 Thou/mm3 (1.0-4.8); Lymphocytes % (Auto) 7 % (10-50); Mean Corpuscular HGB Conc 33.2 g/dl (31.0-37.0); Mean Corpuscular Hemoglobin 32.6 pg (25.0-35.0); Mean Corpuscular Volume 98 fL (80-100); Monocytes # (Auto) 0.8 Thou/mm3 (0.0-0.8); Monocytes % (Auto) 7 % (0-12); Neutrophils # (Auto) 10.0 Thou/mm3 (1.8-7.7); Neutrophils % (Auto) 86 % (37-80); Nucleated Red Blood Cell # 0.00 Thou/mm3 (0.00-0.00); Nucleated Red Blood Cell % 0 /100 WBC (0); Platelet Count 134 Thou/mm3 (140-440); RDW Standard Deviation 46.4 fL (36.4-46.3); Red Blood Count 3.80 Miln/mm3 (4.00-5.20); White Blood Count 11.7 Thou/mm3 (3.6-11.0)
[2025-03-24 06:30] LABS: Alanine Aminotransferase 12 U/L (10-49); Albumin, Serum 3.4 gm/dL (3.4-4.8); Albumin/Globulin Ratio 1.5 (1.2-2.2); Alkaline Phosphatase 68 U/L (46-116); Anion Gap 8 (7-16); Aspartate Amino Transferase 22 U/L (0-34); BUN/Creatinine Ratio 10 Ratio (12-20); Bilirubin,Total 0.5 mg/dL (0.3-1.2); Blood Urea Nitrogen 7 mg/dL (9-23); Calcium 8.7 mg/dL (8.3-10.6); Calcium (Corrected) 9.2 mg/dL (8.5-10.1); Carbon Dioxide 24.9 mMol/L (20.0-31.0); Chloride 106 mMol/L (98-107); Creatinine (Component) 0.7 mg/dL (0.6-1.3); Estimated Creatinine Clearance 70.9 mL/min (>60); Globulin 2.3 gm/dL (2.3-3.5); Glucose 127 mg/dL (74-106); Magnesium 1.8 mg/dL (1.6-2.6); Osmolality,Calculated 277 (275-295); Phosphorous 5.0 mg/dL (2.4-5.1); Potassium 4.2 mMol/L (3.4-5.1); Sodium 139 mMol/L (136-145); Total Protein 5.7 gm/dL (5.7-8.2); eGFR > 60 See Note
[2025-03-24] MEDS: ONDANSETRON INJ 2 MG/ML INJ 2 ML 4 MG IVP ×3 (08:02→17:31)
[2025-03-24] MEDS: LEVOFLOXACIN 250 MG TABLET 750 MG PO (08:02)
[2025-03-24] MEDS: MORPHINE SULF INJ 4 MG/ML VIAL 2 MG IVP (09:12)
[2025-03-24] MEDS: Magnesium Sulfate 4 GM Ivpb 4 GM/50 ML BAG IV (09:13)
[2025-03-24] MEDS: HYDROcodone/APAP 5/325 TABLET 1 TAB PO ×2 (10:16→23:02)
--- NOTE | 2025-03-24 10:48 | PC.SS ---
Patient Karey Arredondo is a 74 year old female admitted for S/P Nephrolithotomy. SS met with patient at bedside to discuss discharge plan. Patient reports she lives at home with her son, Ronal Arredondo who she reports is her surrogate decision maker, . Patient reports she is able to complete all ADL's independently and does not utilize any source of DME to assist with ambulation. PCP is Bettina Mendiola. Choice of pharmacy is [facility]. At time of discharge the patient wishes to return back home. Family will provide transportation. Discharge plan: Home Next of kin: son, Ronal Arredondo.
--- NOTE | 2025-03-24 12:45 | PC.NURSE ---
PT X1 [address] DONG MADE AWARE. ZOFRAN GIVEN PER MAR ORDERS. NO NEW ORDERS.
--- NOTE | 2025-03-24 13:19 | PD.RESDS ---
Planned Discharge Date 03/24/25 DS: Providers Provider Date of admission: 03/23/25 19:44 Primary care physician: Bettina Mendiola MD Admitting Provider: Fernando Izquierdo MD Attending Provider on Admission: Alverto Lester MD Consults: 03/23/25 16:33 Consult to Adult Hospitalist Routine Comment: percutaneous nephrolitotripsy Consulting Provider: Kameron Kumar Attending Provider on DC: Edmond Perez DO Discharging Provider: Edmond Perez DO Hospital Course Time Spent with Patient Time attestation: Total time spent providing and/or coordinating discharge services: Quality: VTE Deep Vein Thrombosis/Pulmonary Embolism Present on Admission: No Exam Vital Signs Temp Pulse Resp BP Pulse Ox O2 Del Method O2 Flow Rate 97.9 F 72 18 118/59 L 95 Nasal Cannula 1 03/24/25 07:38 03/24/25 09:46 03/24/25 09:46 03/24/25 07:38 03/24/25 09:46 03/24/25 07:38 03/24/25 09:46 Discharge Plan Plan Patient Disposition: HOME (Self Care) Care Plan Goals: Please take levofloxacin 750mg tablet once a day for 5 days Please take [place] 5-325mg tablet every 6 hours as needed for breakthrough pain Continue all other home medications as prescribed Please follow-up with Dr. Lester for nephrostomy tube removal Please follow-up with your PCP within 1 week of discharge or follow-up at the [facility] [address] [place] [address] If your symptoms worsen or if you develop new chest pain, shortness of breath, severe abdominal pain or bleeding - please come back to the ED immediately. Prescriptions/Referrals Prescriptions/Med Rec: New levofloxacin 750 mg tablet 750 mg PO DAILY 5 Days Qty: 5 0RF hydrocodone-acetaminophen 5-325 mg Tablet 1 tab PO Q6H MDD hydrocodone 20mg PRN (Reason: Pain 4-9) 5 Days Qty: 20 0RF Continued loratadine [Claritin] 10 mg Tablet 10 mg PO QDAY rosuvastatin [Crestor] 40 mg tablet 40 mg PO DAILY multivitamin [Daily Multi-Vitamin] Tablet 1 tab PO QAM Referrals: Alverto Lester MD [Physician, Urology] Arden Mary MD [Physician, Urology] Bettina Mendiola MD [Primary Care Provider, Family Practice] Patient/Caregiver Discharge Instructions Education Materials: Percutaneous Nephrostomy Dc, Preventing Surgical Site Infections Print Language: Luxembourgish Stand Alone Forms: Padma Award Info., Patient Portal Info Letter, Work/Release Restrictions
--- NOTE | 2025-03-24 14:38 | PD.RESPRO ---
Documentation for date of: 03/24/25 Subjective Subjective Interval history: Patient still has nausea. On Ondansetron 4mg IV q4hr prn. No longer feels pain. Discontinued her Morphine sulfate 2mg IV q4hr prn. Her pain is currently managed by [place] 5 and Tylenol. Patient is cleared to discharge on Urology standpoint. However, will keep the patient one more day to asscess her post-op pain or possible infection. No Overnight events. Labs reviewed and patient examined at the bedside. Denies chest pain, palpation, SOB, abdominal pain, N/V, fevers or chills. Exam Vital Signs Temp Pulse Resp BP Pulse Ox O2 Del Method O2 Flow Rate 98.0 F 80 18 120/66 93 L Nasal Cannula 1 03/24/25 12:00 03/24/25 12:00 03/24/25 12:00 03/24/25 12:00 03/24/25 12:00 03/24/25 12:00 03/24/25 12:00 Narrative Exam General: No acute distress, well nourished, AAO x3 Eye: Normal conjunctiva, no scleral icterus HENT: Normocephalic, atraumatic, hearing intact to conversation at normal volume, moist oral mucosa Neck: Supple, non-tender, no JVD, no lymphadenopathy Lungs: Non-labored respirations, symmetric chest rise, Clear to auscultate bilaterally, No wheezing, rhonchi, crackles Heart: Peripheral pulses intact bilaterally, Regular Rate and Rhythm. Abdomen: Soft, non-tender, non-distended, no palpable masses Musculoskeletal: Normal range of motion and strength, No cyanosis or edema, No visible joint swelling, Left nephrostomy tube noted. Skin: Skin is warm, dry, no rashes or lesions. Psychiatric: Cooperative, appropriate mood and affect, Awake and alert, not agitated Neuro: Cranial nerves II-XII grossly intact. Strength 5/5 throughout. Sensations intact to light touch. Objective Labs 03/25/25 05:04 03/25/25 05:04 Labs: Laboratory Results - last 24 hr 03/23/25 03/23/25 03/24/25 00:19 23:35 05:44 WBC 13.7 H 11.7 H RBC 3.95 L 3.80 L Hgb 13.2 12.4 Hct 38.8 37.3 MCV 98 98 MCH 33.4 32.6 MCHC 34.0 33.2 RDW Std Deviation 46.3 46.4 H Plt Count 137 L 134 L Neut % (Auto) 87 H 86 H Lymph % (Auto) 5 L 7 L [place] % (Auto) 7 7 Eos % (Auto) 0 0 Baso % (Auto) 0 0 Neut # (Auto) 11.9 H 10.0 H Lymph # (Auto) 0.7 L 0.8 L [place] # (Auto) 1.0 H 0.8 Eos # (Auto) 0.0 0.0 Baso # (Auto) 0.1 0.0 Immature Gran # (Auto) 0.04 H 0.03 H Absolute Nucleated RBC 0.00 0.00 Immature Gran % 0 0 Nucleated RBC % 0 0 Sodium 139 139 Potassium 3.6 D 4.2 D Chloride 106 106 Carbon Dioxide 23.9 24.9 Anion Gap 9 8 BUN 8 L 7 L Creatinine 0.7 0.7 Estim Creat Clear Calc 70.9 70.9 eGFR > 60 > 60 BUN/Creatinine Ratio 11 L 10 L Glucose 137 H 127 H Calculated Osmolality 277 277 Calcium 8.9 8.7 Corrected Calcium 9.1 9.2 Phosphorus 5.0 Magnesium 1.8 Total Bilirubin 0.7 0.5 AST 25 22 ALT 13 12 Alkaline Phosphatase 74 68 Total Protein 6.1 5.7 Albumin 3.7 3.4 Globulin 2.4 2.3 Albumin/Globulin Ratio 1.5 1.5 Quality Measures Quality Measures VTE prophylaxis Advance care planning discussed with:: patient and other Assessment & Plan Assessment Current Active Medications: Generic Name Dose Route Start Last Admin Trade Name Maverick PRN Reason Stop Dose Admin Acetaminophen 650 mg 03/23/25 19:44 03/24/25 04:20 Acetaminophen 325 Mg Tablet PO 04/22/25 19:43 650 mg Q6H PRN Administration Fever >101.5 or pain 1-3 Hydrocodone Bitart/Acetaminophen 1 tab 03/24/25 09:27 03/24/25 10:16 Hydrocodone/Apap 5/325 Tablet PO 03/29/25 09:26 1 tab Q4HR PRN Administration Pain 4-9 Levofloxacin 750 mg 03/23/25 20:00 03/24/25 08:02 Levofloxacin 250 Mg Tablet PO 03/27/25 19:59 750 mg DAILY VALARIE Administration Magnesium Hydroxide 30 ml 03/23/25 19:44 Milk Of Magnesia Susp 30 Ml Udc PO 04/22/25 19:43 QDAY PRN CONSTIPATION Protocol Ondansetron HCl 4 mg 03/23/25 22:05 03/24/25 13:06 Ondansetron Inj 2 Mg/Ml Inj 2 Ml IVP 04/22/25 22:04 4 mg Q4H PRN Administration NAUSEA OR VOMITING Protocol Plan This is a 74-year-old female with past medical history of staghorn calculi, hyperlipidemia presented to the hospital for her scheduled percutaneous nephrolithotomy for removal of her nonobstructive staghorn calculi 2.5 to 3 cm Near upper pole of left kidney. # S/P percutaneous nephrolithotomy on 03/23 # Left nonobstructive renal staghorn calculi 2.5 to 3 cm upper pole s/p nephrolithotomy CT urogram on 03/16 showing large 22 mm upper pole Gabo nonobstructing left renal calculi Patient successfully underwent PCNL on 03/23 without complications Admitted for post PCNL observation and pain management as per urology request -Starting on antibiotics levofloxacin 750 mg p.o. daily to prevent any infectious complications -On [place] 5 and tylenol for pain management -IV ondansetron 4 mg every 4 hours as needed for nausea. -Follow-up with labs and stone analysis. -Pain control as required. -Patient is cleared to discharge on Urology standpoint. However, will keep the patient one more day to assess her post-op pain or possible infection. # Hyperlipidemia Takes Crestor at home ?Continue to monitor and start medication # History of GI bleed History of GI bleed on 05/17 ?Continue to monitor outpatient Code status: Full DVT prophylaxis: SCD Diet: Renal Diet Wan: None Lines: PIV Supplemental O2: none Disposition: Observation Attending Provider Attestation/Addendum I have examined the patient, reviewed labs and imaging findings, discussed the case with the resident(s), and reviewed entered orders. I agree with the plan of care as outlined in this note, with these additional summaries/recommendations: Patient seen at bedside. No acute overnight events. Patient is postoperative day #1 status post percutaneous renal surgery for 3.5 X2 0.5 cm upper pole partial staghorn calculi. Patient still requiring IV morphine for pain management and we will attempt to wean down to oral [place]. Patient also is endorsing intractable nausea and has not yet been able to tolerate diet fully. For these reasons patient will remain hospitalized for continue pain management and advancement of diet. Nephrostomy tube in place and draining well. Discussed with patient that she will have to follow-up with urology in 10 days for nephrostomy tube and ureteral stent removal. Start laxative. Patient updated on the plan and agreement. All questions answered to satisfaction. Please see residents note for additional details and management. Dr. Sarah MD
--- NOTE | 2025-03-24 16:21 | PC.SS ---
Rounding note: Staying one more day to assess her post-op pain or possible infection. Has not had BM. Discharging home when medically clear.
--- NOTE | 2025-03-24 17:00 | PC.NURSE ---
PT POST MINIMAL VOID AFTER ANDERSON REMOVAL AND NEPHROSTOMY DRAIN OUTPUT 750ML.
[2025-03-25] VITALS: BP 119/64; PULSE 91; RESP 18; TEMP 36.7; O2SAT 92
[2025-03-25] MEDS: ACETAMINOPHEN 325 MG TABLET 650 MG PO ×2 (00:38→07:08)
[2025-03-25 00:49] VITALS: PULSE 81; RESP 16; RESP 92
[2025-03-25 04:00] VITALS: BP 123/67; PULSE 84; RESP 15; TEMP 37; O2SAT 93
[2025-03-25] MEDS: HYDROcodone/APAP 5/325 TABLET 1 TAB PO ×2 (05:04→10:52)
[2025-03-25 06:19] LABS: Basophils # (Auto) 0.0 Thou/mm3 (0.0-0.2); Basophils % (Auto) 0 % (0-2.5); Eosinophils # (Auto) 0.0 Thou/mm3 (0.0-0.5); Eosinophils % (Auto) 0 % (0-10); Hematocrit 37.6 % (36.0-46.0); Hemoglobin 12.5 g/dL (12.0-16.0); Immature Granulocytes Auto 0.06 Thou/mm3 (0.00-0.00); Lymphocytes # (Auto) 1.0 Thou/mm3 (1.0-4.8); Lymphocytes % (Auto) 7 % (10-50); Mean Corpuscular HGB Conc 33.2 g/dl (31.0-37.0); Mean Corpuscular Hemoglobin 32.6 pg (25.0-35.0); Mean Corpuscular Volume 98 fL (80-100); Monocytes # (Auto) 0.9 Thou/mm3 (0.0-0.8); Monocytes % (Auto) 6 % (0-12); Neutrophils # (Auto) 11.9 Thou/mm3 (1.8-7.7); Neutrophils % (Auto) 86 % (37-80); Nucleated Red Blood Cell # 0.00 Thou/mm3 (0.00-0.00); Nucleated Red Blood Cell % 0 /100 WBC (0); Platelet Count 133 Thou/mm3 (140-440); RDW Standard Deviation 46.3 fL (36.4-46.3); Red Blood Count 3.83 Miln/mm3 (4.00-5.20); White Blood Count 13.8 Thou/mm3 (3.6-11.0)
[2025-03-25 06:43] LABS: Alanine Aminotransferase 12 U/L (10-49); Albumin, Serum 3.6 gm/dL (3.4-4.8); Albumin/Globulin Ratio 1.6 (1.2-2.2); Alkaline Phosphatase 68 U/L (46-116); Anion Gap 10 (7-16); Aspartate Amino Transferase 22 U/L (0-34); BUN/Creatinine Ratio 9 Ratio (12-20); Bilirubin,Total 0.7 mg/dL (0.3-1.2); Blood Urea Nitrogen 11 mg/dL (9-23); Calcium 8.8 mg/dL (8.3-10.6); Calcium (Corrected) 9.1 mg/dL (8.5-10.1); Carbon Dioxide 25.3 mMol/L (20.0-31.0); Chloride 101 mMol/L (98-107); Creatinine (Component) 1.2 mg/dL (0.6-1.3); Estimated Creatinine Clearance 42.0 mL/min (>60); Globulin 2.2 gm/dL (2.3-3.5); Glucose 103 mg/dL (74-106); Magnesium 2.2 mg/dL (1.6-2.6); Osmolality,Calculated 271 (275-295); Phosphorous 3.6 mg/dL (2.4-5.1); Potassium 4.0 mMol/L (3.4-5.1); Sodium 136 mMol/L (136-145); Total Protein 5.8 gm/dL (5.7-8.2); eGFR 48 See Note
[2025-03-25 08:00] VITALS: BP 107/60; PULSE 79; RESP 15; TEMP 36.9; O2SAT 93
[2025-03-25] MEDS: LEVOFLOXACIN 250 MG TABLET 750 MG PO (08:45)
--- NOTE | 2025-03-25 09:58 | PC.NURSE ---
Per Dr. Mitchell, patient will be discharged after morning rounds which will take place in less than 2 hours.
[2025-03-25 11:58] VITALS: BP 118/58; PULSE 84; RESP 17; TEMP 36.9; O2SAT 93
--- NOTE | 2025-03-25 13:07 | ESDS_ITS ---
<Statement entered by Aleyda Mitchell MD - 03/25/25 16:17> Patient was seen and examined by me personally. I have reviewed the below documentation by the team resident and agree with its findings. Discharge plan was discussed with the attending, Dr. Eleir Smith MD 74-year-old female past medical history of staghorn calculi, hyperlipidemia admitted for management of calculus, patient underwent PCNL and stone retrieval by urology, tolerated procedure well, has good drainage from nephrostomy tube. Patient's pain was managed during the hospitalization course, received IV antibiotics and will be discharged with close outpatient follow-up with urology, stable for discharge responded well to hospital treatment. Follow-up with PCP for stone analysis review and further management. Aleyda Mitchell MD Internal Medicine, PGY-2 Planned Discharge Date 03/25/25 DS: Providers Provider Date of admission: 03/23/25 19:44 Primary care physician: Bettina Mendiola MD Admitting Provider: Fernando Izquierdo MD Attending Provider on Admission: Alverto Lester MD Consults: 03/23/25 16:33 Consult to Adult Hospitalist Routine Comment: percutaneous nephrolitotripsy Consulting Provider: Kameron Kumar Attending Provider on DC: Edmond Perez DO Discharging Provider: Edmond Perez DO DS: Diagnosis Problem List Completed Was Problem List Reviewed/Reconciled?: Yes Hospital Course Hospital Course Hospital course: Summary: Karey Russell is 74-year-old female with PMH of staghorn calculi, hyperlipidemia, received percutaneous nephrolithotomy on 03/23 and was admitted for post-operative observation. She received oral antibiotics during the stay and was managed with multimodal pain control regimen. Hospital Course: Patient successfully underwent PCNL on 03/23 without complications. Kumpe catheter was positioned in bladder, and 24Fr Wan catheter was placed coaxially in the upper pole dilated calyx. Admitted for post PCNL observation and pain management as per urology request. Started on antibiotics levofloxacin 750 mg p.o. daily to prevent any infectious complications. Given IV morphine 2 mg IV every 4 hours as needed for her pain and IV ondansetron 4 mg every 4 hours as needed for nausea. Switched to [place] 5 and Tylenol for pain management before discharge. Patient was instructed to follow up with Urology, Dr. Benoit, in 10 days for removal of nephrostomy tube. Instructions: Please take levofloxacin 750mg tablet once a day for 5 days Please take [place] 5-325mg tablet every 6 hours as needed for breakthrough pain Continue all other home medications as prescribed Please follow-up with Dr. Lester for nephrostomy tube removal in 10 days Please follow-up with your PCP within 1 week of discharge or follow-up at the [address] [place] [address] If your symptoms worsen or if you develop new chest pain, shortness of breath, severe abdominal pain or bleeding - please come back to the ED immediately. # S/P percutaneous nephrolithotomy on 03/23 # Left nonobstructive renal staghorn calculi 2.5 to 3 cm upper pole s/p nephrolithotomy # Hyperlipidemia # History of GI bleed Assessment and plan discussed with my attending physician Dr. Smith and Dr. Mitchell (PGY-2) Dr. Perez (PGY-1) - Internal medicine resident Status at Discharge Overall status at discharge: patient is progressing back to baseline Time Spent with Patient Time attestation: Total time spent providing and/or coordinating discharge services: Time spent: Greater than 30 minutes Quality: VTE Deep Vein Thrombosis/Pulmonary Embolism Present on Admission: No Exam Vital Signs Temp Pulse Resp BP Pulse Ox O2 Del Method O2 Flow Rate 98.5 F 84 17 118/58 L 93 L Room Air 1 03/25/25 11:58 03/25/25 11:58 03/25/25 11:58 03/25/25 11:58 03/25/25 11:58 03/25/25 11:58 03/24/25 12:00 Narrative Exam General: No acute distress, well nourished, AAO x3 Eye: Normal conjunctiva, no scleral icterus HENT: Normocephalic, atraumatic, hearing intact to conversation at normal volume, moist oral mucosa Neck: Supple, non-tender, no JVD, no lymphadenopathy Lungs: Non-labored respirations, symmetric chest rise, Clear to auscultate bilaterally, No wheezing, rhonchi, crackles Heart: Peripheral pulses intact bilaterally, Regular Rate and Rhythm. Abdomen: Soft, non-tender, non-distended, no palpable masses Musculoskeletal: Normal range of motion and strength, No cyanosis or edema, No visible joint swelling, Left nephrostomy tube at lower back. Skin: Skin is warm, dry, no rashes or lesions. Psychiatric: Cooperative, appropriate mood and affect, Awake and alert, not agitated Neuro: Cranial nerves II-XII grossly intact. Strength 5/5 throughout. Sensations intact to light touch. Discharge Plan Plan Patient Disposition: HOME (Self Care) Patient condition on transfer: Stable Care Plan Goals: Please take levofloxacin 750mg tablet once a day for 5 days Please take [place] 5-325mg tablet every 6 hours as needed for breakthrough pain Continue all other home medications as prescribed Please follow-up with Dr. Lester for nephrostomy tube removal in 10 days Please follow-up with your PCP within 1 week of discharge or follow-up at the [facility] [address] [place] [address] If your symptoms worsen or if you develop new chest pain, shortness of breath, severe abdominal pain or bleeding - please come back to the ED immediately. Prescriptions/Referrals Prescriptions/Med Rec: New levofloxacin 750 mg tablet 750 mg PO DAILY 5 Days Qty: 5 0RF hydrocodone-acetaminophen 5-325 mg Tablet 1 tab PO Q6H MDD hydrocodone 20mg PRN (Reason: Pain 4-9) 5 Days Qty: 20 0RF Continued loratadine [Claritin] 10 mg Tablet 10 mg PO QDAY rosuvastatin [Crestor] 40 mg tablet 40 mg PO DAILY multivitamin [Daily Multi-Vitamin] Tablet 1 tab PO QAM Referrals: Alverto Lester MD [Physician, Urology] Arden Mary MD [Physician, Urology] Bettina Mendiola MD [Primary Care Provider, Family Practice] Patient/Caregiver Discharge Instructions Education Materials: Percutaneous Nephrostomy Dc, Preventing Surgical Site Infections Print Language: Kinyarwanda Stand Alone Forms: Padma Award Info., Patient Portal Info Letter, Work/Release Restrictions Discharge Order Discharge Orders: Discharge (Routine); Ordered 03/25/25 Ordered By: Aleyda Mitchell Quality Discharge Quality Measures VTE prophylaxis Attestestation Attestation I have examined the patient, reviewed labs and imaging findings, discussed the case with the resident(s), and reviewed entered orders. I agree with the plan of care as outlined in this note. Time Spent: [address] Sarah MD
[2025-04-03 17:49] LABS: Stone Analysis Source KIDNEY
[2025-04-05 07:35] LABS: Stone Analysis Weight 1.704 g
== END 2025-03-25 11:57 | disposition home or self-care (01) ==
LOC: S3SX 20:16
PROVIDERS: Anesthesiology; Specialist; Admitting Provider Student in an Organized Health Care Education/Training Program; PCP Family Medicine; Referring Provider Urology; Visit Provider Urology
PROC: 0TJB8ZZ Inspection of Bladder, Via Natural or Artificial Opening Endoscopic (ICD-10-PCS; CPT 52000; 2025-03-23 12:00)
DX: N20.0 Calculus of kidney (principal); E78.5 Hyperlipidemia, unspecified
CPT/HCPCS: 36415; 71045; 74420; 80053; 82365; 83735; 84100; 85025; 93005; 96365; 96375; 96376; G0378; J0131; J1580; J2270; J2405; J2704; J3010; J3373; J3475; J3490; A9270; J1596

== ENCOUNTER 2025-03-29 15:08 | Inpatient (IN) | payer MEDICARE, BC, SELFPAY ==
[2025-03-29 15:39] VITALS: BP 130/76; PULSE 86; RESP 20; TEMP 36.8; O2SAT 97; BMI 29.2
--- NOTE | 2025-03-29 15:41 | XR_ITS ---
Examination: CT abdomen and pelvis without contrast. Coronal 3-D reconstructions. Sagittal 2-D reconstructions. Date and time of exam: 03/29/2025 at 4:44 p.m. INDICATION: Confirm left nephrostomy tube placement due to leaking CTDI: vol (mGy): 9.09 DLP: (mGycm): 522 Technique: Axial images of the abdomen have been obtained, 3 mm slice thickness Intravenous contrast material has not been administered. Low dose protocols were performed. One or more of the following dose reduction techniques were used; automated exposure control, adjustment of the mA and/or KV according to patient size, use of iterative reconstruction technique. Findings: Lack of intravenous contrast limits evaluation of solid organs, vasculature, and lymph nodes. Lower thorax: Interval development of a small left-sided pleural effusion, moderate left basilar atelectasis and mild to moderate right basilar atelectasis. Normal heart size with minimal pericardial effusion identified. Aortic valve calcifications are present. Hypoattenuation of the cardiac blood pool relative to the myocardium suggests hemodilution. Mild sliding-type hiatal hernia, larger in appearance compared to prior CT. Liver: Within normal limits. Biliary system: Cholecystectomy without evidence for concerning biliary ductal dilatation. Spleen: Within normal limits of size. No discrete mass. Pancreas: No contour deforming mass or overt main pancreatic duct dilatation. No evidence for acute inflammation. Adrenal glands: No significant findings. Kidneys: Interval placement of a left-sided percutaneous nephroureteral stent with the distal coiled end of the stent identified in the pelvic portion of the ureter, not in the urinary bladder. There has been interval development of a prominent degree of multilobulated fluid in the left perinephric space along with edematous thickening of the pararenal fascia, in addition to mild fluid around the spleen. Mild to moderate left-sided hydronephrosis is present. The previously visualized large staghorn calculus in the upper half of the left kidney has been fragmented into multiple smaller components residing in minor calyces as well as smaller calculi throughout the left ureter adjacent to and inferior to the stent, extending to the UVJ with mild left UVJ urothelial thickening. No evidence for right-sided renal or ureteral calculi or hydroureteronephrosis. Bladder: A mild degree of air is present in the bladder lumen. No bladder mass. Pelvic organs: No masses or acute findings. Bowel/Peritoneal cavity: Limited assessment without IV and oral contrast as well as segments of underdistention. No contour deforming mass. No obstructive or acute inflammatory changes. Colonic diverticulosis without evidence for acute diverticulitis. Moderate fecal burden is present throughout the redundant colon at time of imaging. Lymph nodes/retroperitoneum: No pathologically enlarged lymph nodes or other masses. No hematoma or other abnormal collections. Vessels: Aortobiiliac atherosclerotic calcifications without aneurysm. Abdominal/Pelvic wall: Subcutaneous edema identified in the left flank. Musculoskeletal: Multifocal degenerative changes with otherwise no evidence for recent fracture or aggressive lesion. Lumbar dextroscoliosis. Diffuse osteopenia. Mild grade chronic L4 superior endplate compression deformity noted. Central canal decompression with laminectomies identified in the visualized lower thoracic spine. IMPRESSION: Interval placement of a left-sided percutaneous nephroureteral stent with the distal coiled end of the stent identified in the pelvic portion of the ureter, not in the urinary bladder. Interval development of a prominent degree of multilobulated fluid in the left perinephric space along with edematous thickening of the pararenal fascia, in addition to mild fluid around the spleen. Mild to moderate left-sided hydronephrosis is present. Interval lithotripsy of previously visualized large staghorn calculus in the upper half of the left kidney now with relatively smaller calculi residing in minor calyces as well as throughout the left ureter from proximal to distal including at the UVJ where mild urothelial thickening is seen.
--- NOTE | 2025-03-29 16:25 | PD.EDRME ---
Rapid Medical Screening Exam RME Arrival date/time: 03/29/25 15:08 74-year-old female presents to the emergency department today with concerns for leaking from her nephrostomy tube Chief Complaint: Urogenital-Female Time Seen by Provider: 03/29/25 16:25 Vital signs: Vital Signs Temperature 98.3 F 03/29/25 15:39 Pulse Rate 86 03/29/25 15:39 Respiratory Rate 20 03/29/25 15:39 Blood Pressure 130/76 03/29/25 15:39 Pulse Oximetry (%) 97 03/29/25 15:39 Oxygen Delivery Method Room Air 03/29/25 15:39 Vital signs reviewed by provider: Yes Exam: On exam patient well-appearing patient does not appear ill or toxic no acute distress Clinical Impression: Imaging ordered to confirm placement of nephrostomy tube
[2025-03-29 18:07] VITALS: BP 140/73; PULSE 83; RESP 17; TEMP 36.8; O2SAT 98
--- NOTE | 2025-03-29 18:24 | PD.EDFMALE ---
ED Female Urogenital RME/HPI General Chief complaint: Urogenital-Female Stated complaint: L) NEPHROTOMY TUBE LEADING Time Seen by Provider: 03/29/25 16:25 Arrival date/time: 03/29/25 15:08 RME / HPI RME / HPI Narrative: 03/29/25 15:08 74-year-old female presents to the emergency department today with concerns for leaking from her nephrostomy tube Dr. Beckford?s Main ED Evaluation: 74yo female with a history of staghorn calculi, HL, received percutaneous nephrolithotomy on 03/23 presents to the ED due to having leakage from her left nephrostomy tube. Patient had a left nephrostomy tube placed by Dr. Lester and Dr. Mary on 03/23/25. She states she started having leakage from around the tube yesterday, reporting it became worse today. Patient denies any worsening abdominal/back painm fever, chills, or any other associated symptoms. NKA. Related Data Home Medications ?Medication ?Instructions ?Recorded ?Confirmed loratadine 10 mg tablet (Claritin) 10 mg PO QDAY 06/30/22 03/22/25 multivitamin (Daily Multi-Vitamin 1 tab PO QAM 03/22/25 03/22/25 tablet) rosuvastatin 40 mg tablet (Crestor) 40 mg PO DAILY 03/22/25 03/22/25 Allergies Allergy/AdvReac Type Severity Reaction Status Date / Time No Known Allergies Allergy Verified 03/29/25 15:11 Review of Systems Review of Systems Systems Reviewed: All systems reviewed, normal except as documented Past Medical History Past Medical History NEUROLOGIC: Negative Neurological Disorders, Cerebrovascular Accident, Transient Ischemic Attacks (TIA), Dementia, Alzheimer's Disease, Parkinson's Disease, Brain Tumor, Meningitis, Seizures, Epilepsy, Multiple Sclerosis, Cerebral Palsy, Amyotrophic Lateral Sclerosis (ALS/Megan Gehrig's), Guillain-Elnora Syndrome, Spina Bifida, Paralysis, Peripheral Neuropathy, Irene's Palsy, Subdural Hematoma, Migraine, Head Trauma, Spinal Cord Injury or Traumatic Brain Injury CARDIAC: Positive Cardiac Disorders and Hypercholesterolemia; Negative Myocardial Infarction, Cardiac Arrhythmia, Atrial Fibrillation, Angina, Heart Murmur, Coronary Artery Disease, Atherosclerotic Heart Disease, Peripheral Vascular Disease, Aneurysm, Congestive Heart Failure, Congenital Heart Disease, Valvular Heart Disease, Rheumatic Fever, Cardiomyopathy, Edema, Pericarditis, Cellulitis, Deep Vein Thrombosis, Hypertension, Hypotension or Varicose Veins RESPIRATORY: Negative Chronic Obstructive Pulmonary Disease (COPD), Asthma, Bronchitis, Emphysema, Pneumonia, Pulmonary Fibrosis, Cystic Fibrosis, Tuberculosis, Pulmonary Embolism, Pulmonary Edema or Sleep Apnea GASTROINTESTINAL: Positive Gastrointestinal Disorders (fatty liver), Ulcer and Hemorrhoids; Negative Hepatitis, Cirrhosis, Pancreatitis, Celiac Disease, Gall Bladder Disease, Gastrointestinal Bleed, Esophageal Varices, Ansari's Esophagus, Colitis, Ulcerative Colitis, Diverticulitis, Diverticulosis, Colorectal Cancer, Irritable Bowel, Crohn's Disease, Obstructive Bowel, Hiatal Hernia, Gastroesophageal Reflux Disease or Obesity GENITOURINARY: Positive Genitourinary Disorders and Kidney Stones; Negative Renal Disease, Polycystic Kidney Disease, Neurogenic Bladder, Inguinal Hernia, Dialysis, Prostate Cancer or Benign Prostatic Hyperplasia REPRODUCTIVE: Positive Previous Pregnancies (2); Negative Breast Cancer, Endometriosis, Genital Herpes, Gonorrhea, Pelvic Inflammatory Disease, Syphilis, Testicular Cancer or Uterine Prolapse MUSCULOSKELETAL: Negative Musculoskeletal Disorders, Muscular Dystrophy, Myasthenia Gravis, Marfan's Syndrome, Bone Cancer, Arthritis, Rheumatoid Arthritis, Osteoporosis, Degenerative Disk Disease, Gout, Scoliosis, Carpal Tunnel Syndrome, Fibromyalgia, Fractures, Degenerative Joint Disease, Osteomyelitis or Poliovirus ENT: Negative Cataracts, Glaucoma, Blind, Retinal Detachment, Macular Degeneration, Ear Infection, Deafness, Head Trauma or Eye Prosthesis ENDOCRINE: Negative Endocrine Disorders, Diabetes Mellitus Type 1, Diabetes Mellitus Type 2, Hypoglycemia, [place]'s Syndrome, Shane's Disease, Hyperthyroidism, Hypothyroidism, Parathyroid Disease, Pituitary Disease, Systemic Lupus Erythematosus, Syndrome of Inappropriate Antidiuretic Hormone (SIADH), Adrenal Disease or Graves' Disease HEMATOLOGIC: Negative Blood Disorders, Anemia, Leukemia, Hemophilia, Thalassemia, Sickle Cell Disease or Clotting Problems PSYCHO/SOCIAL: Negative Psychiatric Problems, Schizophrenia, Recreational Drug Use, Bipolar Disorder, Depression, Anxiety, Behavior Problems, Self-Mutilation, Attention Deficit Disorder, Attention Deficit Hyperactivity Disorder, Depression, Post Traumatic Stress Disorder or Eating Disorder OTHER HISTORY: Positive Hospitalization; Negative Autoimmune Disease, Down Syndrome, Autism, Developmental Delay, Shingles, Falls, Blood Transfusions, Blood Transfusion Reaction, Anesthesia Reactions, Organ Transplant, Chemotherapy, Radiation Therapy, Hyperbaric Therapy, MRSA, VRSA, Vancomycin-Resistant Enterococci, Human Immunodeficiency Virus (HIV), Chicken Pox, Measles, Mumps, Rubella (Divehi Measles), Pertussis, Clostridium Difficile, Cancer, Breast Cancer, Cervical Cancer, Colorectal Cancer, Lung Cancer, Ovarian Cancer, Prostate Cancer or Testicular Cancer Family History FAMILY HISTORY: Positive Family Cardiac Disorders (father), Family Cancer (mother espogeal cancer) and Family Surgery; Negative Family Psychiatric Problems, Family Respiratory Disorders, Family Gastrointestinal Problems or Family Anesthesia Reaction Surgical History SURGICAL: Positive Abdominal Surgery, Joint Replacement (left knee replacement 03/2020), Open Reduction Internal Fixation (Left ankle ligament repair), Tubal Ligation and Section; Negative Cardiac Surgery, Open Heart Surgery, Coronary Artery Bypass Graft, Valve Replacement, Vascular Surgery, Coronary Stent, Cardiac Catheterization, Pacemaker, Angiogram, Auto Implanted Cardiovert Defib, Carotid Endarterectomy, Endocrine Surgery, Thyroidectomy, Ear Surgery, Tympanostomy Tube, Eye Surgery, Nose Surgery, Oral Surgery, Tonsillectomy, Adenoidectomy, Cochlear Implant, Corneal Transplant, Throat Surgery, Tracheostomy, Gastric Bypass Surgery, Gastrostomy, Bowel Surgery, Nephrectomy, Transurethral Resection, Amputation, Arthroscopy, Neurologic Surgery, Brain Shunt, Mastectomy, Lumpectomy, Hysterectomy, Vasectomy or Organ Transplant Social History SMOKING STATUS: Never smoker ED Exam Narrative Physical exam: Generally patient is alert and in no obvious distress, heart regular rate and rhythm, lungs clear to auscultation equal bilaterally, abdomen soft bowel sounds present nondistended nontender, musculoskeletal exam shows left flank nephrostomy tube to be inserted without erythema or discharge at the insertion site. It appears as if the tube may have been pulled out approximately 4 cm. There is a very slight amount of leakage of what appears to be urine at the insertion site. Course Quality Measures none Orders Category Date Time Status CT abdomen pelvis wo con Stat Exams 03/29/25 15:41 Completed CBC Stat Lab 03/29/25 18:40 Completed CMP [Comprehensive Metabolic Panel] Stat Lab 03/29/25 18:40 Completed UA [Urinalysis] Stat Lab 03/29/25 18:30 Completed Piper/Tazo 3.375 gm Premix [Zosyn] Med 03/29/25 19:29 Active 3.375 gm in 50 ml IV X1 Vital Signs Vital signs: Vital Signs Temperature 98.3 F 03/29/25 15:39 Pulse Rate 86 03/29/25 15:39 Respiratory Rate 20 03/29/25 15:39 Blood Pressure 130/76 03/29/25 15:39 Pulse Oximetry (%) 97 03/29/25 15:39 Oxygen Delivery Method Room Air 03/29/25 15:39 Urogenital - Female MDM Narrative MDM Narrative:: Scribe Attestation: 03/29/25 - Jany Martinez am scribing for and in the presence of Dr. Beckford. I interpreted all labs. Patient is nontoxic in appearance. I reviewed the patient's past medical history and saw that the patient underwent the nephrostomy tube placement [address] scan done of the abdomen and pelvis showed placement of the left-sided percutaneous nephroureteral stent with the distal coiled and of the stent not in the bladder but it was in the pelvic portion of the ureter. There was also development of a prominent degree of multilobulated fluid in the left perinephric space along with edematous thickening of the pararenal fascia. I was able to get a hold of the patient's urologist, Dr. Lester who I reviewed the results of the scan with. He also discussed this case with Dr. Mary. Dr. Lester asked for the patient to be admitted and started on antibiotic therapy. Patient will be started on Zosyn 3.375 g IV every 6 hours. I discussed this case with the hospitalist who will admit the patient. Dr. Lester stated that he will take the patient to surgery on Thursday which is day after tomorrow. He asked for OR time to be set aside for him at approximately 8:30 AM on Thursday which is March 31. He plans to do cystoscopy with left retrograde pyelogram and placement of left ureteral stent. I discussed this case with my charge nurse, Kareen, who will let the milk house worker know of this request. Patient data External records reviewed:: [facility] previous records (Per chart review, patient was admitted here on 03/23/25 for a kidney calculus.) Clinical information provided by:: patient Social determinants that could affect healthcare access:: none Patient has the following chronic illnesses:: staghorn calculi, hyperlipidemia, received percutaneous nephrolithotomy on 03/23 How is presenting disease/condition affected by chronic disease/condition?: uneffected by Evaluation data The following diagnostics were reviewed and interpreted by me:: lab results and radiology exam(s) Lab and/or radiology exams considered but not ordered:: none Interpretation Summary: [facility] Report Signed Patient: JOSÉ MANUEL DUMONT Record#: [id number] Birthdate: 1950 Age/Sex: 74 / F Location: [facility] Attending Dr: Ordering Physician: Steven CRONIN)Gucci NP Date of Service: 03/29/25 Procedure(s): CT abdomen pelvis wo con Accession Number(s): [id number] cc: Steven CRONIN),Gucci HARPER; Bettina Mendiola MD; Frantz Howard DO~ Examination: CT abdomen and pelvis without contrast. Coronal 3-D reconstructions. Sagittal 2-D reconstructions. Date and time of exam: 03/29/2025 at 4:44 p.m. INDICATION: Confirm left nephrostomy tube placement due to leaking CTDI: vol (mGy): 9.09 DLP: (mGycm): 522 Technique: Axial images of the abdomen have been obtained, 3 mm slice thickness Intravenous contrast material has not been administered. Low dose protocols were performed. One or more of the following dose reduction techniques were used; automated exposure control, adjustment of the mA and/or KV according to patient size, use of iterative reconstruction technique. Findings: Lack of intravenous contrast limits evaluation of solid organs, vasculature, and lymph nodes. Lower thorax: Interval development of a small left-sided pleural effusion, moderate left basilar atelectasis and mild to moderate right basilar atelectasis. Normal heart size with minimal pericardial effusion identified. Aortic valve calcifications are present. Hypoattenuation of the cardiac blood pool relative to the myocardium suggests hemodilution. Mild sliding-type hiatal hernia, larger in appearance compared to prior CT. Liver: Within normal limits. Biliary system: Cholecystectomy without evidence for concerning biliary ductal dilatation. Spleen: Within normal limits of size. No discrete mass. Pancreas: No contour deforming mass or overt main pancreatic duct dilatation. No evidence for acute inflammation. Adrenal glands: No significant findings. Kidneys: Interval placement of a left-sided percutaneous nephroureteral stent with the distal coiled end of the stent identified in the pelvic portion of the ureter, not in the urinary bladder. There has been interval development of a prominent degree of multilobulated fluid in the left perinephric space along with edematous thickening of the pararenal fascia, in addition to mild fluid around the spleen. Mild to moderate left-sided hydronephrosis is present. The previously visualized large staghorn calculus in the upper half of the left kidney has been fragmented into multiple smaller components residing in minor calyces as well as smaller calculi throughout the left ureter adjacent to and inferior to the stent, extending to the UVJ with mild left UVJ urothelial thickening. No evidence for right-sided renal or ureteral calculi or hydroureteronephrosis. Bladder: A mild degree of air is present in the bladder lumen. No bladder mass. Pelvic organs: No masses or acute findings. Bowel/Peritoneal cavity: Limited assessment without IV and oral contrast as well as segments of underdistention. No contour deforming mass. No obstructive or acute inflammatory changes. Colonic diverticulosis without evidence for acute diverticulitis. Moderate fecal burden is present throughout the redundant colon at time of imaging. Lymph nodes/retroperitoneum: No pathologically enlarged lymph nodes or other masses. No hematoma or other abnormal collections. Vessels: Aortobiiliac atherosclerotic calcifications without aneurysm. Abdominal/Pelvic wall: Subcutaneous edema identified in the left flank. Musculoskeletal: Multifocal degenerative changes with otherwise no evidence for recent fracture or aggressive lesion. Lumbar dextroscoliosis. Diffuse osteopenia. Mild grade chronic L4 superior endplate compression deformity noted. Central canal decompression with laminectomies identified in the visualized lower thoracic spine. IMPRESSION: Interval placement of a left-sided percutaneous nephroureteral stent with the distal coiled end of the stent identified in the pelvic portion of the ureter, not in the urinary bladder. Interval development of a prominent degree of multilobulated fluid in the left perinephric space along with edematous thickening of the pararenal fascia, in addition to mild fluid around the spleen. Mild to moderate left-sided hydronephrosis is present. Interval lithotripsy of previously visualized large staghorn calculus in the upper half of the left kidney now with relatively smaller calculi residing in minor calyces as well as throughout the left ureter from proximal to distal including at the UVJ where mild urothelial thickening is seen. Dictated By: Frantz Howard DO Signed By: <Electronically signed by Frantz Howrad DO in OV> 03/29/25 5136 Medications / Prescriptions Medications or Prescriptions considered but not ordered:: none Medication administrations:: Medication Administration History Piperacillin/Tazobactam/Dextrose (Zosyn) 3.375 gm in 50 mls @ 100 mls/hr IV X1 ONE; Protocol Stop: 03/29/25 19:58 see above Consultations Consultation(s) initiated? (list below): Yes Diagnosis Urogenital Female Differential Diagnosis: other (See MDM) Most likely diagnosis given after review of the tests above:: see clinical impression below Admission Indicated Admission indicated?: indicated Admission Request Was there a request for admission?: Yes Admission Attestation Admission request attestation: Discussed case with [] from Hospitalist service regarding admission. Discussed patients ED course, exam findings, labs, and radiology results. The Hospitalist [agrees,declines] to accept the patient for admission. Disposition Plan Disposition Plan: Admit Critical Care Time Critical Care Time Critical Care Time: Yes Total Critical Care Time (min.): 35 Attestation: Excluding other billable procedures Discharge Plan Plan Patient Disposition: Admit Acute Care w/in Hospital Prescriptions/Referrals Prescriptions/Med Rec: No Action loratadine [Claritin] 10 mg Tablet 10 mg PO QDAY rosuvastatin [Crestor] 40 mg tablet 40 mg PO DAILY multivitamin [Daily Multi-Vitamin] Tablet 1 tab PO QAM Referrals: Bettina Mendiola MD [Primary Care Provider, Family Practice] - In 1 week Problem List Clinical Impression: Displacement of nephrostomy tube Patient/Caregiver Discharge Instructions Print Language: Eritrean Stand Alone Forms: [facility] Award Info., Patient Portal Info Letter
--- NOTE | 2025-03-29 18:27 | PC.NURSE ---
Patient came into the ED for leaking to nephrostomy placement. Pt denies any fever,N/V but does feel some soreness to area when she lays back on it. Pt is concerned that the tubing has dislodged.
[2025-03-29 18:44] LABS: Collection Type, Urine Voided
[2025-03-29 18:45] LABS: Basophils # (Auto) 0.0 Thou/mm3 (0.0-0.2); Basophils % (Auto) 0 % (0-2.5); Eosinophils # (Auto) 0.1 Thou/mm3 (0.0-0.5); Eosinophils % (Auto) 1 % (0-10); Hematocrit 34.9 % (36.0-46.0); Hemoglobin 11.6 g/dL (12.0-16.0); Immature Granulocytes Auto 0.03 Thou/mm3 (0.00-0.00); Lymphocytes # (Auto) 1.2 Thou/mm3 (1.0-4.8); Lymphocytes % (Auto) 16 % (10-50); Mean Corpuscular HGB Conc 33.2 g/dl (31.0-37.0); Mean Corpuscular Hemoglobin 32.0 pg (25.0-35.0); Mean Corpuscular Volume 96 fL (80-100); Monocytes # (Auto) 0.9 Thou/mm3 (0.0-0.8); Monocytes % (Auto) 12 % (0-12); Neutrophils # (Auto) 5.0 Thou/mm3 (1.8-7.7); Neutrophils % (Auto) 70 % (37-80); Nucleated Red Blood Cell # 0.00 Thou/mm3 (0.00-0.00); Nucleated Red Blood Cell % 0 /100 WBC (0); Platelet Count 167 Thou/mm3 (140-440); RDW Standard Deviation 46.6 fL (36.4-46.3); Red Blood Count 3.62 Miln/mm3 (4.00-5.20); White Blood Count 7.2 Thou/mm3 (3.6-11.0)
--- NOTE | 2025-03-29 18:45 | PC.NURSE ---
Dr. Beckford removed dressing to nephrostomy tube to let it air dry and further assess amount of drainage from opening. At thsi time nephrostomy bag was empied approx 200 ml of red colored urined came out. Pt coninutes to state that area is tender and feels the leaking.
[2025-03-29 18:58] LABS: Amorphous Crystals,Urine Present (Absent); Bacteria,Urine Rare; Bilirubin,Urine Negative (Negative); Blood,Urine 3+ (Negative); Clarity,Urine Turbid (Clear/Hazy); Color,Urine Brown (Lt Yel-Yel); Glucose, Urine Negative (Negative); Ketones,Urine Negative (Negative); Leukocyte Esterase,Urine Positive (Negative); Nitrite,Urine Negative (Negative); PH,Urine 6.5 (5.0-7.0); Protein,Urine 1+ (Neg - Trace); RBC,Urine 670 /hpf (0-3); Specific Gravity,Urine 1.007 (1.001-1.035); Squamous Epithelial Cell,Urine < 1 /hpf (0-5); Urobilinogen,Urine Negative mg/dL (0.0-1.0); WBC,Urine 35 /hpf (0-5)
[2025-03-29 19:03] LABS: Alanine Aminotransferase 72 U/L (10-49); Albumin, Serum 3.6 gm/dL (3.4-4.8); Albumin/Globulin Ratio 1.3 (1.2-2.2); Alkaline Phosphatase 102 U/L (46-116); Anion Gap 8 (7-16); Aspartate Amino Transferase 81 U/L (0-34); BUN/Creatinine Ratio 14 Ratio (12-20); Bilirubin,Total 0.6 mg/dL (0.3-1.2); Blood Urea Nitrogen 11 mg/dL (9-23); Calcium 9.3 mg/dL (8.3-10.6); Calcium (Corrected) 9.6 mg/dL (8.5-10.1); Carbon Dioxide 26.8 mMol/L (20.0-31.0); Chloride 103 mMol/L (98-107); Creatinine (Component) 0.8 mg/dL (0.6-1.3); Estimated Creatinine Clearance 61.6 mL/min (>60); Globulin 2.7 gm/dL (2.3-3.5); Glucose 107 mg/dL (74-106); Osmolality,Calculated 275 (275-295); Potassium 3.9 mMol/L (3.4-5.1); Sodium 138 mMol/L (136-145); Total Protein 6.3 gm/dL (5.7-8.2); eGFR > 60 See Note
[2025-03-29] MEDS: PIPER/TAZO 3.375 GM PREMIX 3.375 GM/50 ML BAG IV (20:08)
[2025-03-29 20:22] VITALS: BP 138/67; PULSE 85; RESP 16; TEMP 36.8; O2SAT 97
--- NOTE | 2025-03-29 20:57 | ESHP_ITS ---
<Statement entered by Richard Panda MD - 03/30/25 06:08> I have discussed and was present for the essential components of the history, physical examination, diagnosis, and treatment plan with the resident. I agree with the patient's care as documented by the resident and amended herein by me. Richard Panda MD FACP. Documentation for date of: 03/29/25 HPI History of Present Illness Chief complaint: leaking urine from tube site History of present illness: Karey Arredondo is 74 yr female with PMH of HLD, staghorn calculi s/p laser fragmentation and left nephrostomy tube placement presenting to ED with chief complaint of leaking of urine from tube site. Procedure was completed on 03/23/2025 with no complications. She was discharged with levofloxacin. Patient had 1 more day left remaining in antibiotic course. She denies any fever, chills, dysuria, headache, back pain or abdominal pain. Still having hematuria postprocedure. She noticed increased leaking of her urine from left nephrostomy tube. CT abdomen pelvis showed placement of the left-sided percutaneous nephroureteral stent with the distal coiled and of the stent not in the bladder but it was in the pelvic portion of the ureter. There was also development of a prominent degree of multilobulated fluid in the left perinephric space along with edematous thickening of the pararenal fascia. ED was able to contact urology Dr. Lester who agreed for admission. Stated to start IV Zosyn and plan for surgery this Thursday morning. He plans to do cystoscopy with left retrograde pyelogram and placement of left ureteral stent. Vitals are stable, WBCs normal 7.2, platelets 167, sodium 138, potassium 3.9, creatinine 0.8. Patient had 1 more day left of levofloxacin course. She takes rosuvastatin 40 mg daily Past medical history: Renal calculi, hyperlipidemia, GI bleed on 05/17. Past surgical history: Left knee surgery, foot and back surgery, cholecystectomy, cervical fusion, s/p laser fragmentation and left nephrostomy tube placement Family history: Esophageal cancer in mother Allergic history: NKDA Social history: Denies smoking alcohol or any other drug usage Review of Systems Review of Systems Systems Reviewed: All systems reviewed, normal except as documented Exam Vital Signs Temp Pulse Resp BP Pulse Ox O2 Del Method 98.3 F 85 16 138/67 H 97 Room Air 03/29/25 20:22 03/29/25 20:22 03/29/25 20:22 03/29/25 20:22 03/29/25 20:22 03/29/25 20:22 Narrative Exam General: Alert and oriented x3. No acute distress, cooperative HEENT: NCAT, No JVD noted. Mucosa moist. Pupils are equal and reactive to light bilaterally Cardiovascular: Normal S1 and S2. Regular rate and rhythm. Respiratory: Lungs are clear to auscultation bilaterally. No wheezing or crackles heard. Abdomen: Soft, nontender, not distended, normal bowel sounds. : left nephrostomy tube in place draining, hematuria, some urine visibly leaking around tube insertion site Skin: Warm to touch, dry, no rashes noted Musculoskeletal: No gross injuries. Able to move all 4 extremities. No pitting edema Neuro: Alert and oriented x3. No focal neuro deficits. Psych: Normal affect and mood Results: Labs 03/29/25 18:40 03/29/25 18:40 Labs: Short CBC 03/29/25 Range/Units 18:40 WBC 7.2 D (3.6-11.0) Thou/mm3 Hgb 11.6 L (12.0-16.0) g/dL Hct 34.9 L (36.0-46.0) % Plt Count 167 D (140-440) Thou/mm3 BMP 03/29/25 18:40 Sodium 138 Potassium 3.9 Chloride 103 Carbon Dioxide 26.8 BUN 11 Creatinine 0.8 Glucose 107 H Calcium 9.3 Liver Function 03/29/25 Range/Units 18:40 Total Bilirubin 0.6 (0.3-1.2) mg/dL AST 81 H (0-34) U/L ALT 72 H (10-49) U/L Alkaline Phosphatase 102 (46-116) U/L Albumin 3.6 (3.4-4.8) gm/dL Urine 03/29/25 Range/Units 18:30 Urine Color Brown A (Lt Yel-Yel) Urine Clarity Turbid A (Clear/Hazy) Urine pH 6.5 (5.0-7.0) Ur Specific [place] 1.007 (1.001-1.035) Urine Protein 1+ A (Neg - Trace) Urine Glucose (UA) Negative (Negative) Quality Measures Quality Measures none Advance care planning discussed with:: patient Medications Home Medications and Allergies Home Medications ?Medication ?Instructions ?Recorded ?Confirmed ?Type loratadine 10 mg tablet (Claritin) 10 mg PO QDAY 06/3003/22/25 History multivitamin (Daily Multi-Vitamin 1 tab PO QAM 5 03/22/25 History tablet) rosuvastatin 40 mg tablet (Crestor) 40 mg PO DAILY 03/22/25 History Allergies Allergy/AdvReac Type Severity Reaction Status Date / Time No Known Allergies Allergy Verified 03/29/25 15:11 Visit Medications Discontinued Medications Piperacillin/Tazobactam/Dextrose (Zosyn) 3.375 gm in 50 mls @ 100 mls/hr IV X1 ONE; Protocol Stop: 03/29/25 19:58 Last Infusion: 03/29/25 20:53 Dose: Infused Assessment & Plan Plan Karey Arredondo is 74 yr female with PMH of HLD, staghorn calculi s/p laser fragmentation and left nephrostomy tube placement presenting to ED with chief complaint of leaking of urine from tube site. Dr. Lester will do cystoscopy with left retrograde pyelogram and placement of left ureteral stent on morning 03/31. #Staghorn calculi s/p #Laser fragmentation and left nephrostomy tube #Displacement of nephrostomy tube Procedure was completed on 03/23/2025 with no complications. She was discharged with levofloxacin with one more day left. She denies any fever, chills, dysuria, headache, back pain or abdominal pain. Still having hematuria postprocedure. She noticed increased leaking of her urine from left nephrostomy tube. CT a/p--end of the stent identified in the pelvic portion of the ureter, not in the urinary bladder. multilobulated fluid in the left perinephric space, Mild to moderate left-sided hydronephrosis is present. UA jay hematuria, positive leukocyte esterase, RBC 670, WBC 35. -Dr. Lester planning for cystoscopy with left retrograde pyelogram and placement of left ureteral stent on Thursday AM -SCDs -IV Zosyn 3.375g q6hr -dressing changes as needed #HLD Takes Crestor at home ?Continue to monitor and start medication Health maintenance: Dispo: medsurg, surgery by Dr Lester Thursday FEN: regular DVT prophylaxis: SCDs CODE STATUS: Full code The patient's management plan was discussed with my attending physician Dr. Panda. Diya Liriano, PGY-2
[2025-03-29 22:25] VITALS: BP 118/64; PULSE 81; RESP 16; TEMP 36.4; O2SAT 100
[2025-03-30 00:03] VITALS: BMI 30.5
[2025-03-30 04:00] VITALS: BP 128/72; PULSE 73; RESP 18; TEMP 37; O2SAT 96
[2025-03-30] MEDS: PIPER/TAZO 3.375 GM PREMIX 3.375 GM/50 ML BAG IV (05:51)
[2025-03-30 06:34] LABS: Basophils # (Auto) 0.0 Thou/mm3 (0.0-0.2); Basophils % (Auto) 1 % (0-2.5); Eosinophils # (Auto) 0.1 Thou/mm3 (0.0-0.5); Eosinophils % (Auto) 2 % (0-10); Hematocrit 31.2 % (36.0-46.0); Hemoglobin 10.7 g/dL (12.0-16.0); Immature Granulocytes Auto 0.03 Thou/mm3 (0.00-0.00); Lymphocytes # (Auto) 1.0 Thou/mm3 (1.0-4.8); Lymphocytes % (Auto) 17 % (10-50); Mean Corpuscular HGB Conc 34.3 g/dl (31.0-37.0); Mean Corpuscular Hemoglobin 33.1 pg (25.0-35.0); Mean Corpuscular Volume 97 fL (80-100); Monocytes # (Auto) 0.8 Thou/mm3 (0.0-0.8); Monocytes % (Auto) 14 % (0-12); Neutrophils # (Auto) 3.8 Thou/mm3 (1.8-7.7); Neutrophils % (Auto) 67 % (37-80); Nucleated Red Blood Cell # 0.00 Thou/mm3 (0.00-0.00); Nucleated Red Blood Cell % 0 /100 WBC (0); Platelet Count 155 Thou/mm3 (140-440); RDW Standard Deviation 47.1 fL (36.4-46.3); Red Blood Count 3.23 Miln/mm3 (4.00-5.20); White Blood Count 5.7 Thou/mm3 (3.6-11.0)
[2025-03-30 06:51] LABS: Alanine Aminotransferase 60 U/L (10-49); Albumin, Serum 3.1 gm/dL (3.4-4.8); Albumin/Globulin Ratio 1.3 (1.2-2.2); Alkaline Phosphatase 85 U/L (46-116); Anion Gap 7 (7-16); Aspartate Amino Transferase 67 U/L (0-34); BUN/Creatinine Ratio 10 Ratio (12-20); Bilirubin,Total 0.5 mg/dL (0.3-1.2); Blood Urea Nitrogen 8 mg/dL (9-23); Calcium 8.5 mg/dL (8.3-10.6); Calcium (Corrected) 9.2 mg/dL (8.5-10.1); Carbon Dioxide 27.9 mMol/L (20.0-31.0); Chloride 106 mMol/L (98-107); Creatinine (Component) 0.8 mg/dL (0.6-1.3); Estimated Creatinine Clearance 63.0 mL/min (>60); Globulin 2.4 gm/dL (2.3-3.5); Glucose 94 mg/dL (74-106); INR 1.0 (0.9-1.3); Magnesium 1.8 mg/dL (1.6-2.6); Osmolality,Calculated 279 (275-295); Partial Thromboplastin Time 31.3 Seconds (22.0-36.0); Phosphorous 4.5 mg/dL (2.4-5.1); Potassium 4.0 mMol/L (3.4-5.1); Prothrombin Time 11.1 Seconds (9.0-12.2); Sodium 141 mMol/L (136-145); Total Protein 5.5 gm/dL (5.7-8.2); eGFR > 60 See Note
[2025-03-30 07:43] VITALS: BP 126/76; PULSE 87; RESP 18; TEMP 37; O2SAT 96
[2025-03-30] MEDS: PIPER/TAZO 3.375 GM PREMIX 3.375 G/50 ML BAG IV ×3 (08:41→22:00)
--- NOTE | 2025-03-30 11:26 | XR_ITS ---
Examination: Abdomen AP single view Technique: AP portable supine abdomen, single view Exam date and time: 03/30/2025 at 11:44 a.m. INDICATION: Preoperative planning COMPARISON: CT abdomen pelvis 03/29/2025 FINDINGS: Single AP view of the abdomen shows stable appearance of the left-sided percutaneous nephroureteral stent with the stent tip projecting in the pelvic portion of the ureter as described on the preceding CT. Additionally, there is redemonstration of a few calculi along the course/adjacent to the left ureteral stent. Calculi are identified in the projection of the left kidney as well. There is moderate gas throughout colon and small bowel without findings concerning for high-grade bowel obstruction. No free air. Surgical clips in the right upper quadrant are compatible with cholecystectomy. Bibasilar atelectases and small effusions, greater on the left. Multifocal degenerative changes with otherwise no evidence for recent fracture or aggressive lesion. Mild lumbar dextroscoliosis. IMPRESSION: Stable appearance of the left-sided percutaneous nephroureteral stent with the stent tip projecting in the pelvic portion of the ureter as described on the preceding CT. A few calculi are reidentified along the course/adjacent to the left ureteral stent. Calculi are also present in the left renal collecting system.
--- NOTE | 2025-03-30 11:34 | ESPR_ITS ---
<Statement entered by Uzair Kaufman MD - 04/13/25 07:51> I reviewed above note and agree with findings and plans. I have also personally examined the patient with medicine team and went over assessment and plan with medical team including environmental intern and resident physician. <Statement entered by Magan Hopkins MD - 04/03/25 13:42> I have personally seen and examined the patient, agree with residents assessment and plan Patient plan of care was discussed with the attending physician, Dr. Mandeep Hopkins, PGY2 Documentation for date of: 03/30/25 Subjective Subjective Interval history: Today, the patient reports continued hematuria and urine leakage from the nephrostomy tube. Per nursing, 175 mL of bloody drainage was emptied from the tube overnight. She denies any new flank or abdominal pain, fevers, chills, nausea, vomiting, or dysuria. She describes mild pain around the tube site only when it is manipulated, which she notes has been chronic since placement. She has been drinking fluids well and has no new complaints otherwise. Exam Vital Signs Temp Pulse Resp BP Pulse Ox O2 Del Method 98.6 F 87 18 126/76 96 Room Air 03/30/25 07:43 03/30/25 07:43 03/30/25 07:43 03/30/25 07:43 03/30/25 07:43 03/30/25 07:43 Narrative Exam General: Awake, alert, oriented ?3, NAD. Cardiac: RRR, no murmurs. Lungs: Clear to auscultation bilaterally. Abdomen: Soft, nondistended, non-tender except mild tenderness at nephrostomy site. : Left nephrostomy tube in place with blood-tinged output and leakage around site. Dressing clean/dry/intact. Extremities: No edema, pulses intact. Neuro: No focal deficits, baseline mental status intact. Objective Labs 03/30/25 05:41 03/30/25 05:41 Labs: Laboratory Results - last 24 hr 03/29/25 03/29/25 03/30/25 18:30 18:40 05:41 WBC 7.2 D 5.7 RBC 3.62 L 3.23 L Hgb 11.6 L 10.7 L Hct 34.9 L 31.2 L MCV 96 97 MCH 32.0 33.1 MCHC 33.2 34.3 RDW Std Deviation 46.6 H 47.1 H Plt Count 167 D 155 Neut % (Auto) 70 67 Lymph % (Auto) 16 17 [place] % (Auto) 12 14 H Eos % (Auto) 1 2 Baso % (Auto) 0 1 Neut # (Auto) 5.0 3.8 Lymph # (Auto) 1.2 1.0 [place] # (Auto) 0.9 H 0.8 Eos # (Auto) 0.1 0.1 Baso # (Auto) 0.0 0.0 Immature Gran # (Auto) 0.03 H 0.03 H Absolute Nucleated RBC 0.00 0.00 Immature Gran % 0 1 H Nucleated RBC % 0 0 PT 11.1 INR 1.0 APTT 31.3 Sodium 138 141 Potassium 3.9 4.0 Chloride 103 106 Carbon Dioxide 26.8 27.9 Anion Gap 8 7 BUN 11 8 L Creatinine 0.8 0.8 Estim Creat Clear Calc 61.6 63.0 eGFR > 60 > 60 BUN/Creatinine Ratio 14 10 L Glucose 107 H 94 Calculated Osmolality 275 279 Calcium 9.3 8.5 Corrected Calcium 9.6 9.2 Phosphorus 4.5 Magnesium 1.8 Total Bilirubin 0.6 0.5 AST 81 H 67 H ALT 72 H 60 H Alkaline Phosphatase 102 85 Total Protein 6.3 5.5 L Albumin 3.6 3.1 L D Globulin 2.7 2.4 Albumin/Globulin Ratio 1.3 1.3 Ur Collection Type Voided Urine Color Brown A Urine Clarity Turbid A Urine pH 6.5 Ur Specific [place] 1.007 Urine Protein 1+ A Urine Glucose (UA) Negative Urine Ketones Negative Urine Blood 3+ A Urine Nitrite Negative Urine Bilirubin Negative Urine Urobilinogen (Auto) Negative Ur Leukocyte Esterase Positive Urine RBC 670 H Urine WBC 35 H Ur Squamous Epith Cells < 1 Amorphous Crystals Present A Urine Bacteria Rare Quality Measures Quality Measures VTE prophylaxis Advance care planning discussed with:: patient Assessment & Plan Assessment Current Active Medications: Generic Name Dose Route Start Last Admin Trade Name Freq PRN Reason Stop Dose Admin Acetaminophen 650 mg 03/29/25 20:45 Acetaminophen 325 Mg Tablet PO 04/28/25 20:44 Q6H PRN Fever >100.4 or pain 1-3 Piperacillin/Tazobactam/Dextrose 3.375 g in 50 mls @ 12.5 mls/hr 03/30/25 08:30 03/30/25 08:41 Zosyn IV 04/06/25 08:29 12.5 mls/hr Q8HR VALARIE Administration Protocol Ondansetron HCl 4 mg 03/29/25 20:45 Ondansetron Inj 2 Mg/Ml Inj 2 Ml IVP 04/28/25 20:44 Q6H PRN NAUSEA OR VOMITING Protocol Sennosides 1 tab 03/29/25 20:45 03/30/25 00:28 Senna Tablet PO 04/28/25 20:44 1 tab QDAY PRN Administration constipation Protocol Plan 74-year-old female with a history of staghorn calculi s/p laser lithotripsy and left nephrostomy tube placement (03/23/25), admitted for dislodged nephrostomy tube with ongoing hematuria and urine leakage, now awaiting cystoscopy and ureteral stent placement with urology. # Complicated UTI, secondary to nephrostomy displacement UA positive for WBCs, LE; likely secondary to nephrostomy-associated infection. No systemic signs of sepsis. Plan: * Continue IV Zosyn as below pending intraoperative findings/culture results. * Follow urine culture results. * Monitor WBC trend and temperature. # Dislodged nephrostomy tube Patient presents with hematuria and leakage from displaced left nephrostomy tube after lithotripsy on 03/23/25. Imaging confirms malposition of distal coil. Hemodynamically stable, afebrile, renal function preserved. Plan: * Continue IV Zosyn 4.5 g q8h. * Monitor urine output, color, and volume closely. Notify if bleeding worsens or output stops. * Cystoscopy with retrograde pyelogram and ureteral stent placement scheduled 03/31 at 4:00PM with Dr. Lester (Urology). * Maintain adequate hydration with oral fluids. * Pain control PRN (avoid NSAIDs). # Hematuria Attributed to mechanical irritation and partial dislodgement of the nephrostomy tube. Plan: * Monitor hemoglobin daily. * Maintain nephrostomy drainage; avoid tube manipulation. * Continue hydration; reassess post-procedure. # Staghorn calculi s/p laser lithotripsy Recent lithotripsy with residual small calculi in the collecting system. Plan: * Urology to address during upcoming cystoscopy. * Encourage hydration and strain urine if possible for fragments. # Hyperlipidemia Stable. Plan: * Monitor LFTs as outpatient. Health Maintenance: Disposition: Continue inpatient monitoring; pending urology intervention tomorrow morning. Diet: Regular. DVT Prophylaxis: SCDs. Fluids/Electrolytes: Encourage PO fluids; monitor renal panel daily. Code Status: Full. ----- Plan discussed with attending physician Dr. Kaufman and senior resident Dr. Kellie Larios MD PGY-1 Internal Medicine
[2025-03-30 11:39] VITALS: BP 122/76; PULSE 77; RESP 18; TEMP 37; O2SAT 96
--- NOTE | 2025-03-30 12:17 | PC.SS ---
Karey Arredondo is a 74-year-old female admitted to Med Surg for Dislodged Nephrostomy Tube. SS conducted bedside contact with the patient to complete initial assessment and to discuss discharge planning. Role and reason explained. Patient confirmed demographic information. Patient identifies sonRonal [phone] as her surrogate decision maker. Pt states she is able to complete all ADL?s independently. No need for any source of DME. Pts PCP is Maury Medina (last visit was Feb 25). Pharmacy of choice is [email or web address]. Discharge options discussed and the pt wishes to return home.? Family will provide transportation upon DC. No further intervention required at this time, neonatal social worker would be available to address any further concerns. DC Plan: Home Contact: Ronal Randolph Address: Confirmed on face sheet PCP: Maury Rome
[2025-03-30] MEDS: POLYETHYLENE GLYCOL 17 GM PACKET PO (12:51)
[2025-03-30 14:18] VITALS: PULSE 72; RESP 18; RESP 96
[2025-03-30 15:46] VITALS: BP 124/72; PULSE 78; RESP 18; TEMP 37; O2SAT 96
[2025-03-30 20:00] VITALS: BP 116/71; PULSE 90; RESP 19; TEMP 36.8; O2SAT 96
[2025-03-31] VITALS (16 sets, daily range): BP systolic 105–136; BP diastolic 54–74; PULSE 70–101; RESP 14–96; TEMP 36.1–37.1; O2SAT 94–100
[2025-03-31] MEDS: PIPER/TAZO 3.375 GM PREMIX 3.375 G/50 ML BAG IV ×3 (05:55→22:19)
[2025-03-31 06:13] LABS: Basophils # (Auto) 0.1 Thou/mm3 (0.0-0.2); Basophils % (Auto) 1 % (0-2.5); Eosinophils # (Auto) 0.3 Thou/mm3 (0.0-0.5); Eosinophils % (Auto) 4 % (0-10); Hematocrit 30.7 % (36.0-46.0); Hemoglobin 10.3 g/dL (12.0-16.0); Immature Granulocytes Auto 0.03 Thou/mm3 (0.00-0.00); Lymphocytes # (Auto) 1.2 Thou/mm3 (1.0-4.8); Lymphocytes % (Auto) 18 % (10-50); Mean Corpuscular HGB Conc 33.6 g/dl (31.0-37.0); Mean Corpuscular Hemoglobin 32.3 pg (25.0-35.0); Mean Corpuscular Volume 96 fL (80-100); Monocytes # (Auto) 0.7 Thou/mm3 (0.0-0.8); Monocytes % (Auto) 12 % (0-12); Neutrophils # (Auto) 4.1 Thou/mm3 (1.8-7.7); Neutrophils % (Auto) 65 % (37-80); Nucleated Red Blood Cell # 0.00 Thou/mm3 (0.00-0.00); Nucleated Red Blood Cell % 0 /100 WBC (0); Platelet Count 189 Thou/mm3 (140-440); RDW Standard Deviation 46.4 fL (36.4-46.3); Red Blood Count 3.19 Miln/mm3 (4.00-5.20); White Blood Count 6.4 Thou/mm3 (3.6-11.0)
[2025-03-31 06:32] LABS: INR 1.0 (0.9-1.3); Partial Thromboplastin Time 30.5 Seconds (22.0-36.0); Prothrombin Time 11.1 Seconds (9.0-12.2)
[2025-03-31 06:54] LABS: Alanine Aminotransferase 62 U/L (10-49); Albumin, Serum 3.1 gm/dL (3.4-4.8); Albumin/Globulin Ratio 1.4 (1.2-2.2); Alkaline Phosphatase 81 U/L (46-116); Anion Gap 9 (7-16); Aspartate Amino Transferase 65 U/L (0-34); BUN/Creatinine Ratio 14 Ratio (12-20); Bilirubin,Total 0.5 mg/dL (0.3-1.2); Blood Urea Nitrogen 13 mg/dL (9-23); Calcium 8.1 mg/dL (8.3-10.6); Calcium (Corrected) 8.8 mg/dL (8.5-10.1); Carbon Dioxide 25.6 mMol/L (20.0-31.0); Chloride 107 mMol/L (98-107); Creatinine (Component) 0.9 mg/dL (0.6-1.3); Estimated Creatinine Clearance 56.0 mL/min (>60); Globulin 2.2 gm/dL (2.3-3.5); Glucose 90 mg/dL (74-106); Osmolality,Calculated 283 (275-295); Potassium 3.8 mMol/L (3.4-5.1); Sodium 142 mMol/L (136-145); Total Protein 5.3 gm/dL (5.7-8.2); eGFR > 60 See Note
--- NOTE | 2025-03-31 12:45 | ESPR_ITS ---
<Statement entered by Uziar Kaufman MD - 04/13/25 07:55> I reviewed above note and agree with findings and plans. I have also personally examined the patient with medicine team and went over assessment and plan with medical team including pharmacy graduate intern and resident physician. Documentation for date of: 03/31/25 Subjective Subjective Interval history: Patient continues to experience urine leakage from the nephrostomy tube, with hematuria still present. No new complaints of pain or discomfort. Denies fever, chills, or any other systemic symptoms. No bowel movements overnight. Patient is scheduled for a cystoscopy and retrograde pyelogram with left ureteral stent placement today at 4:00 PM. She is aware of the procedure and is awaiting the intervention. Exam Vital Signs Temp Pulse Resp BP Pulse Ox O2 Del Method 97.5 F 70 18 117/68 95 Room Air 03/31/25 12:00 03/31/25 12:00 03/31/25 12:00 03/31/25 12:00 03/31/25 12:00 03/31/25 12:00 Narrative Exam General: Awake, alert, oriented ?3, NAD. Cardiac: RRR, no murmurs. Lungs: Clear to auscultation bilaterally. Abdomen: Soft, nondistended, non-tender except mild tenderness at nephrostomy site. : Left nephrostomy tube in place with blood-tinged output and leakage around site. Dressing clean/dry/intact. Extremities: No edema, pulses intact. Neuro: No focal deficits, baseline mental status intact. Objective Labs 03/31/25 04:39 03/31/25 04:39 Labs: Laboratory Results - last 24 hr 03/31/25 04:39 WBC 6.4 RBC 3.19 L Hgb 10.3 L Hct 30.7 L MCV 96 MCH 32.3 MCHC 33.6 RDW Std Deviation 46.4 H Plt Count 189 D Neut % (Auto) 65 Lymph % (Auto) 18 [place] % (Auto) 12 Eos % (Auto) 4 Baso % (Auto) 1 Neut # (Auto) 4.1 Lymph # (Auto) 1.2 [place] # (Auto) 0.7 Eos # (Auto) 0.3 Baso # (Auto) 0.1 Immature Gran # (Auto) 0.03 H Absolute Nucleated RBC 0.00 Immature Gran % 1 H Nucleated RBC % 0 PT 11.1 INR 1.0 APTT 30.5 Sodium 142 Potassium 3.8 Chloride 107 Carbon Dioxide 25.6 Anion Gap 9 BUN 13 Creatinine 0.9 Estim Creat Clear Calc 56.0 L eGFR > 60 BUN/Creatinine Ratio 14 Glucose 90 Calculated Osmolality 283 Calcium 8.1 L Corrected Calcium 8.8 Total Bilirubin 0.5 AST 65 H ALT 62 H Alkaline Phosphatase 81 Total Protein 5.3 L Albumin 3.1 L Globulin 2.2 L Albumin/Globulin Ratio 1.4 Quality Measures Quality Measures VTE prophylaxis Advance care planning discussed with:: patient Assessment & Plan Assessment Current Active Medications: Generic Name Dose Route Start Last Admin Trade Name Freq PRN Reason Stop Dose Admin Acetaminophen 650 mg 03/29/25 20:45 Acetaminophen 325 Mg Tablet PO 04/28/25 20:44 Q6H PRN Fever >100.4 or pain 1-3 Piperacillin/Tazobactam/Dextrose 3.375 g in 50 mls @ 12.5 mls/hr 03/30/25 08:30 03/31/25 05:55 Zosyn IV 04/06/25 08:29 12.5 mls/hr Q8HR VALARIE Administration Protocol Ondansetron HCl 4 mg 03/29/25 20:45 Ondansetron Inj 2 Mg/Ml Inj 2 Ml IVP 04/28/25 20:44 Q6H PRN NAUSEA OR VOMITING Protocol Sennosides 1 tab 03/29/25 20:45 03/30/25 00:28 Senna Tablet PO 04/28/25 20:44 1 tab QDAY PRN Administration constipation Protocol Plan 74-year-old female with a history of staghorn calculi s/p laser lithotripsy and left nephrostomy tube placement (03/23/25), admitted for dislodged nephrostomy tube with ongoing hematuria and urine leakage, now awaiting cystoscopy and ureteral stent placement with urology. # Complicated UTI, secondary to nephrostomy displacement UA positive for WBCs, LE; likely secondary to nephrostomy-associated infection. No systemic signs of sepsis. Plan: * Continue IV Zosyn as below pending intraoperative findings/culture results. * Follow urine culture results. * Monitor WBC trend and temperature. # Dislodged nephrostomy tube Patient presents with hematuria and leakage from displaced left nephrostomy tube after lithotripsy on 03/23/25. Imaging confirms malposition of distal coil. Hemodynamically stable, afebrile, renal function preserved. Plan: * Continue IV Zosyn 4.5 g q8h. * Monitor urine output, color, and volume closely. Notify if bleeding worsens or output stops. * Cystoscopy with retrograde pyelogram and ureteral stent placement scheduled today 03/31 at 4:00PM with Dr. Lester (Urology). * Maintain adequate hydration with oral fluids. * Pain control PRN (avoid NSAIDs). # Hematuria Attributed to mechanical irritation and partial dislodgement of the nephrostomy tube. Plan: * Monitor hemoglobin daily. * Maintain nephrostomy drainage; avoid tube manipulation. * Continue hydration; reassess post-procedure. # Staghorn calculi s/p laser lithotripsy Recent lithotripsy with residual small calculi in the collecting system. Plan: * Urology to address during upcoming cystoscopy. * Encourage hydration and strain urine if possible for fragments. # Hyperlipidemia Stable. Plan: * Monitor LFTs as outpatient. Health Maintenance: Disposition: Continue inpatient monitoring; pending urology intervention tomorrow morning. Diet: NPO DVT Prophylaxis: SCDs. Code Status: Full. ----- Plan discussed with attending physician Dr. Mandeep Larios MD PGY-1 Internal Medicine
--- NOTE | 2025-03-31 16:00 | XR_ITS ---
EXAMINATION: Retrograde pyelogram with without KUB, left Fluoroscopy 7 spot fluoroscopic abdomen films Date and time: March 31, 2025, 1435 hours INDICATIONS: Left-sided percutaneous nephroureteral stent, renal and ureteral calculi Examination March 30, 2025 TECHNIQUE AND FINDINGS: 7 spot fluoroscopic films of the abdomen showing minor opacification of the collecting system The upper portion of the left ureteral stent is in satisfactory position Fluoroscopy 110 seconds radiation dose 26.65 mGy IMPRESSION: Retrograde pyelogram as above
[2025-03-31] MEDS: SODIUM CHLORIDE 0.9% 500 ML 500 ML 999 ML IV (17:10)
--- NOTE | 2025-03-31 17:17 | SUR.PHASEI ---
1710 patient is sleepy and arousable, breathing unlabored, report received from Sai SIMON and Dr. An. Patient has 16 fr padron draining yellow output and left nephrostomy tube draining about 10ml clear red output
--- NOTE | 2025-03-31 17:46 | PD.SUROPNT ---
Date of Procedure 03/31/25 Surgeon Alverto Lester MD Surgical Staff Operation Date: 03/31/25 16:15 Case Staff Anesthesiologist: Octaviano An
--- NOTE | 2025-03-31 18:32 | SUR.PHASEI ---
patient awake, alert, breathing unlabored, report has been given to Lakisha SIMON, patient will be transferred back to room 361. pt has left nephrostomy tube, no output at this time and 16fr padron that drained total of 275ml light red/pink output.
--- NOTE | 2025-03-31 18:47 | SUR.PHASEI ---
1845 patient transferred back to room 361
--- NOTE | 2025-03-31 19:20 | ESOP_ITS ---
RE: JOSÉ MANUEL DUMONT : 1950 DATE OF OPERATION: 03/31/2025 PREOPERATIVE DIAGNOSES: Staghorn calculi left kidney status post percutaneous nephrolithotomy. Placement of nephrostomy tube and Kumpe catheter. POSTOPERATIVE DIAGNOSES: Staghorn calculi left kidney status post percutaneous nephrolithotomy. Placement of nephrostomy tube and Kumpe catheter. Stone in the distal ureter causing obstruction. PROCEDURES PERFORMED: 1. Cystoscopic examination. 2. Left retrograde pyelogram. 3. Left ureteroscopy. 4. Stone basketing. 5. Removal of Kumpe catheter, which was curled into the distal ureter. 6. Placement of left double-J stent, 26 cm long, 6 Telugu. INDICATION FOR PROCEDURE: This is a 74-year-old female. This patient had staghorn calculi left kidney. The patient underwent PCNL and left RIR, placement of nephrostomy tube, and a ureteral stent. Patient was having drainage of the urine around the nephrostomy tube. She had CAT scan performed, which revealed curling of the distal portion of the ureteral stent in the distal ureter, left side. Patient was recommended above procedure. Procedure and complications were discussed with patient in great detail. Informed consent is obtained. DESCRIPTION OF PROCEDURE: Patient was brought to the operating room in a satisfactory condition after appropriate premedication. She was appropriately identified by surgeon and operating room staff. Site, scope, and indications of the procedure were reconfirmed with the patient. General anesthesia was given uneventfully. Patient was positioned in a dorsal lithotomy position. Parts were prepped and draped in a usual sterile fashion. Patient already had received perioperative antibiotics. Next, 21 cystoscope was introduced into the bladder per urethra. Examination of bladder in all the quadrant was carried out. There was no stone, tumor, or diverticula identified. Next, I identified left ureteral orifice and passed open-ended Pollack catheter. It was advanced to the distal ureter about 3 cm proximal to the left ureter. Retrograde pyelogram was performed. There was no contrast medium going beyond the distal ureter. Next, I tried to pass a safety wire. Safety wire was curling back from the distal ureter. Next, I exchanged it with the Glidewire. I was able to manipulate the Glidewire and passed it into the left kidney in the upper pole. Next, I was able to pass open-ended Pollack catheter. Retrograde pyelogram was performed, and there was no obstruction identified. There was no hydronephrosis. Next, the Glidewire was exchanged with a Bentson wire, and the open-ended Pollack catheter was removed. I used a semi- rigid ureteroscope and passed it into the left ureteral orifice. There were obstructive stones in the distal ureter, left side. These were the fragments, which were coming down from the PCNL stone fragmentation, and that was the reason it was causing obstruction. I was able to basket 3 stone fragments. There was clear urine coming out of the left ureteral orifice. Next, the ureteroscope was withdrawn. Over the safety wire, I was able to place a 26 cm long double-J stent. The proximal end seems to be in the upper pole and distal in the bladder. A #16 Wan catheter was inserted. Patient, after having tolerated the procedure well, was sent to the recovery room in a satisfactory condition. She is being transferred to the floor in #361. FINDINGS: Stone fragment causing obstruction in the distal ureter. ANESTHESIA: General. PATHOLOGY: None. ESTIMATED BLOOD LOSS: 1 mL. CONDITION: Stable. DISPOSITION: Patient is transferred to PACU in a satisfactory condition. DT: 18:02:35 TT: 19:19:00 Ref: [id number] - TID: [id number]
[2025-04-01] VITALS: BP 98/56; PULSE 63; RESP 18; TEMP 36.6; O2SAT 95
[2025-04-01 01:28] VITALS: PULSE 73; RESP 18; RESP 96
[2025-04-01 04:00] VITALS: BP 99/56; PULSE 73; RESP 16; TEMP 36.3; O2SAT 96
[2025-04-01] MEDS: PIPER/TAZO 3.375 GM PREMIX 3.375 G/50 ML BAG IV (05:42)
[2025-04-01 06:57] LABS: INR 1.1 (0.9-1.3); Partial Thromboplastin Time 27.7 Seconds (22.0-36.0); Prothrombin Time 11.2 Seconds (9.0-12.2)
[2025-04-01 07:04] LABS: Basophils # (Auto) 0.0 Thou/mm3 (0.0-0.2); Basophils % (Auto) 0 % (0-2.5); Eosinophils # (Auto) 0.0 Thou/mm3 (0.0-0.5); Eosinophils % (Auto) 0 % (0-10); Hematocrit 32.4 % (36.0-46.0); Hemoglobin 10.7 g/dL (12.0-16.0); Immature Granulocytes Auto 0.05 Thou/mm3 (0.00-0.00); Lymphocytes # (Auto) 0.7 Thou/mm3 (1.0-4.8); Lymphocytes % (Auto) 11 % (10-50); Mean Corpuscular HGB Conc 33.0 g/dl (31.0-37.0); Mean Corpuscular Hemoglobin 31.7 pg (25.0-35.0); Mean Corpuscular Volume 96 fL (80-100); Monocytes # (Auto) 0.3 Thou/mm3 (0.0-0.8); Monocytes % (Auto) 5 % (0-12); Neutrophils # (Auto) 5.3 Thou/mm3 (1.8-7.7); Neutrophils % (Auto) 83 % (37-80); Nucleated Red Blood Cell # 0.00 Thou/mm3 (0.00-0.00); Nucleated Red Blood Cell % 0 /100 WBC (0); Platelet Count 230 Thou/mm3 (140-440); RDW Standard Deviation 46.2 fL (36.4-46.3); Red Blood Count 3.38 Miln/mm3 (4.00-5.20); White Blood Count 6.3 Thou/mm3 (3.6-11.0)
[2025-04-01 07:11] LABS: Alanine Aminotransferase 58 U/L (10-49); Albumin, Serum 3.2 gm/dL (3.4-4.8); Albumin/Globulin Ratio 1.4 (1.2-2.2); Alkaline Phosphatase 81 U/L (46-116); Anion Gap 10 (7-16); Aspartate Amino Transferase 54 U/L (0-34); BUN/Creatinine Ratio 14 Ratio (12-20); Bilirubin,Total 0.3 mg/dL (0.3-1.2); Blood Urea Nitrogen 10 mg/dL (9-23); Calcium 8.5 mg/dL (8.3-10.6); Calcium (Corrected) 9.1 mg/dL (8.5-10.1); Carbon Dioxide 22.6 mMol/L (20.0-31.0); Chloride 110 mMol/L (98-107); Creatinine (Component) 0.7 mg/dL (0.6-1.3); Estimated Creatinine Clearance 71.9 mL/min (>60); Globulin 2.3 gm/dL (2.3-3.5); Glucose 118 mg/dL (74-106); Osmolality,Calculated 284 (275-295); Potassium 4.1 mMol/L (3.4-5.1); Sodium 143 mMol/L (136-145); Total Protein 5.5 gm/dL (5.7-8.2); eGFR > 60 See Note
[2025-04-01 07:18] VITALS: PULSE 59; RESP 18; RESP 96
[2025-04-01 08:00] VITALS: BP 110/59; PULSE 75; RESP 18; TEMP 36.7; O2SAT 98
--- NOTE | 2025-04-01 11:43 | ESDS_ITS ---
<Statement entered by Uzair Kaufman MD - 04/13/25 07:57> I reviewed above note and agree with findings and plans. I have also personally examined the patient with medicine team and went over assessment and plan with medical team including communications marketing intern and resident physician. Planned Discharge Date 04/01/25 DS: Providers Provider Date of admission: 03/29/25 20:40 Primary care physician: Bettina Mendiola MD Admitting Provider: Richard Panda MD Attending Provider on Admission: Uzair Kaufman MD Consults: 03/29/25 22:50 Consult to Urology Routine Comment: nephrostomy tube leaking Consulting Provider: Alverto Lester Attending Provider on DC: Uzair Kaufman MD Discharging Provider: Paolo Larios MD DS: Diagnosis Problem List Completed Was Problem List Reviewed/Reconciled?: Yes Hospital Course Hospital Course Hospital course: The patient is a 74-year-old female with a past medical history of hyperlipidemia and staghorn calculi of the left kidney, status post percutaneous nephrolithotomy (PCNL) and nephrostomy tube placement on 03/23/25, who was admitted for evaluation of urine leakage and hematuria around the nephrostomy tube site. Initial CT abdomen/pelvis demonstrated that the distal coil of the ureteral stent was curled into the distal ureter rather than the bladder, along with mild to moderate left-sided hydronephrosis and perinephric fluid collection. Urology (Dr. Lester) was consulted and recommended surgical intervention. The patient was started on IV Zosyn for suspected complicated UTI and remained hem odynamically stable throughout admission. On 03/31/25, the patient underwent: Cystoscopy, left retrograde pyelogram, left ureteroscopy, stone basketing, and placement of left double-J ureteral stent (26 cm ? 6 Fr). Intraoperatively, multiple stone fragments were identified in the distal ureter causing obstruction, which were successfully removed. The malpositioned Kumpe catheter was also removed. Estimated blood loss was 1 mL, and there were no complications. Postoperatively, the patient remained stable with improving hematuria and decreased urine leakage around the nephrostomy site. She tolerated oral intake, ambulated independently, and reported only mild chronic discomfort at the nephrostomy site. Urine culture remained pending at the time of discharge; the patient was clinically well without fever or leukocytosis. Urology cleared the patient for discharge with plans for outpatient follow-up on thursday. Diagnosis during admission: #Dislodged nephrostomy tube, s/p correction. #Complicated UTI, secondary to nephrostomy displacement #Staghorn calculi, s/p percutaneous nephrolithotomy and ureteroscopy with stone basketing #Hyperlipidemia Discharge instructions: -Follow-up with PCP within 1 week of discharge. If you do not have appointment, please follow-up with the [facility] with Dr. Hopkins. Call [phone] to make an appointment. -Start to take Levofloxacin 500mg once daily for 7days -Recommended to follow up with Urologist Dr. Borja on 04/03 -Recommended to take tylenol as needed for pain -Continue to take other home medications -Return to ED if symptoms persist or return ----- Plan discussed with attending physician Dr. Mandeep Larios MD PGY-1 Internal Medicine Time Spent with Patient Time attestation: Total time spent providing and/or coordinating discharge services: Time spent: Greater than 30 minutes Exam Vital Signs Temp Pulse Resp BP Pulse Ox O2 Del Method O2 Flow Rate 98.0 F 75 18 110/59 L 98 Room Air 2 04/01/25 08:00 04/01/25 08:00 04/01/25 08:00 04/01/25 08:00 04/01/25 08:00 04/01/25 08:00 03/31/25 17:45 Narrative Exam General: Awake, alert, oriented ?3, NAD. Cardiac: RRR, no murmurs. Lungs: Clear to auscultation bilaterally. Abdomen: Soft, nondistended, non-tender except mild tenderness at nephrostomy site. : Left nephrostomy tube in place with blood-tinged output. Dressing clean/dry/intact. Extremities: No edema, pulses intact. Neuro: No focal deficits, baseline mental status intact. Discharge Plan Plan Patient Disposition: HOME (Self Care) Patient condition on transfer: Stable Care Plan Goals: -Follow-up with PCP within 1 week of discharge. If you do not have appointment, please follow-up with the [facility] with Dr. Hopkins. Call [phone] to make an appointment. -Start to take Levofloxacin 500mg once daily for 7days -Recommended to follow up with Urologist Dr. Borja on 04/03 -Recommended to take tylenol as needed for pain -Continue to take other home medications -Return to ED if symptoms persist or return Prescriptions/Referrals Prescriptions/Med Rec: New levofloxacin 500 mg tablet 500 mg PO QDAY Qty: 7 0RF Rx Instructions: Take 1 tablet twice daily for 7days acetaminophen [Tylenol Extra Strength] 500 mg tablet 500 mg PO QID PRN (Reason: fever or pain) Qty: 14 0RF Continued loratadine [Claritin] 10 mg Tablet 10 mg PO QDAY rosuvastatin [Crestor] 40 mg tablet 40 mg PO DAILY multivitamin [Daily Multi-Vitamin] Tablet 1 tab PO QAM Referrals: Bettina Mendiola MD [Primary Care Provider, Family Practice] Patient/Caregiver Discharge Instructions Education Materials: Hematuria: Possible Causes, Having a Ureteral Stent, Understanding Kidney Stones, Identifying Kidney Stones, Preventing Kidney Stones, Cystoscopy Print Language: Vietnamese Stand Alone Forms: Padma Award Info., Patient Portal Info Letter Discharge Order Discharge Orders: Discharge (Routine); Ordered 04/01/25 Ordered By: Magan Hopkins Quality Discharge Quality Measures VTE prophylaxis
[2025-04-01 12:00] VITALS: BP 110/58; PULSE 70; RESP 17; TEMP 36.6; O2SAT 97
== END 2025-04-01 13:18 | disposition home or self-care (01) | DRG 660 ==
LOC: SERX 19:48 → SERHOLD 03-30 06:09 → S3NX 03-30 06:09
PROVIDERS: Urology; Admitting Provider Internal Medicine; Emergency Provider Emergency Medicine; PCP Family Medicine; Visit Provider Internal Medicine
PROC: 0TJB8ZZ Inspection of Bladder, Via Natural or Artificial Opening Endoscopic (ICD-10-PCS; CPT 52000; principal; 2025-03-31 16:00)
DX: T83.022A Displacement of nephrostomy catheter, initial encounter (principal); N13.2 Hydronephrosis with renal and ureteral calculous obstruction; Y73.2 Prosthetic and other implants, materials and accessory gastroenterology and urology devices associated with adverse incidents; E78.5 Hyperlipidemia, unspecified; Z87.442 Personal history of urinary calculi; R31.0 Gross hematuria; Z79.899 Other long term (current) drug therapy
CPT/HCPCS: 36415; 74018; 74176; 74420; 80053; 81001; 83735; 84100; 85025; 85610; 85730; 87081; 87086; 96365; 99283; A4217; A4649; C1769; C1889; C1894; C2617; J1100; J2371; J2543; J2704; J2765; J3010; J3490; J7999; A9270

== ENCOUNTER → 2025-04-03 | Outpatient (BNVA) | payer MEDICARE, BC, SELFPAY | END | disposition home or self-care (01) | PROVIDERS: PCP Family Medicine; Referring Provider Family Medicine; Visit Provider Urology | DX: Z48.816 Encounter for surgical aftercare following surgery on the genitourinary system (principal); Z87.442 Personal history of urinary calculi; Z80.0 Family history of malignant neoplasm of digestive organs; Z96.0 Presence of urogenital implants | CPT/HCPCS: 81003; 99212; G0463 ==

== ENCOUNTER → 2025-04-06 | Outpatient (CLI) | payer MEDICARE, BC, SELFPAY ==
[2025-04-06 11:29] LABS: Alanine Aminotransferase 32 U/L (10-49); Albumin, Serum 3.8 gm/dL (3.4-4.8); Alkaline Phosphatase 86 U/L (46-116); Aspartate Amino Transferase < 8 U/L (0-34); Bilirubin,Direct 0.1 mg/dL (0.0-0.3); Bilirubin,Total 0.3 mg/dL (0.3-1.2); Cardiac Risk Estimate 3.9 RATIO (3.7-5.6); Cholesterol 121 mg/dL (132-200); HDL Cholesterol 31 mg/dL (40-60); LDL Cholesterol,Calculated 68 mg/dL (0-130); Total Protein 6.5 gm/dL (5.7-8.2); Triglycerides 110 mg/dL (30-150)
[2025-04-14 06:42] LABS: Direct LDL* 72 mg/dL (<100)
== END | disposition home or self-care (01) ==
LOC: COPL 09:31
PROVIDERS: PCP Family Medicine; Referring Provider Internal Medicine Cardiovascular Disease; Visit Provider Internal Medicine Cardiovascular Disease
DX: E78.49 Other hyperlipidemia (principal); I10 Essential (primary) hypertension
CPT/HCPCS: 36415; 80061; 80076; 83721

== ENCOUNTER → 2025-04-17 | Outpatient (BNVA) | payer MEDICARE, BC, SELFPAY | END | disposition home or self-care (01) | PROVIDERS: PCP Family Medicine; Referring Provider Family Medicine; Visit Provider Urology | DX: N20.0 Calculus of kidney (principal); Z96.0 Presence of urogenital implants | CPT/HCPCS: 52310; 81003; 96372; A4217; A4649; C1894; J1580; A9270 ==

== ENCOUNTER → 2025-04-25 | Outpatient (CLI) | payer MEDICARE, BC, SELFPAY ==
--- NOTE | 2025-04-25 10:18 | XR_ITS ---
Examination: CT abdomen and pelvis without contrast. Coronal 3-D reconstructions. Sagittal 2-D reconstructions. Date and time of exam: April 25, 2025, 1030 hours, comparison March 29, 2025 INDICATIONS: Left-sided flank pain today CTDI: vol (mGy): 9.85 DLP: (mGycm): 509 Technique: Axial images of the abdomen have been obtained, 3 mm slice thickness Intravenous contrast material has not been administered. Low dose protocols were performed. One or more of the following dose reduction techniques were used; automated exposure control, adjustment of the mA and/or KV according to patient size, use of iterative reconstruction technique. Findings: No focal liver or splenic lesion Absent gallbladder No pancreatic mass Significant scarring left kidney, left renal calculi, the largest 10 mm Mild left hydronephrosis but no ureteral calculi Aortic calcification no aneurysmal dilatation No pericecal inflammatory change Colonic diverticulosis, no diverticulitis Atrophic uterus Minimal thickening of the urinary bladder wall Severe osteopenia, chronic osteoporotic compression L4 IMPRESSION: Significant scarring left kidney, left renal calculi, the largest 10 mm Mild left hydronephrosis without ureteral calculi, consider urinary tract infection
== END | disposition home or self-care (01) ==
LOC: CCTX 10:10
PROVIDERS: PCP Family Medicine; Referring Provider Urology; Visit Provider Urology
DX: N28.89 Other specified disorders of kidney and ureter (principal); N20.0 Calculus of kidney; N13.30 Unspecified hydronephrosis
CPT/HCPCS: 74176

== ENCOUNTER 2025-05-11 12:48 | Day surgery (SDC) | payer MEDICARE, BC, SELFPAY ==
[2025-05-10 08:53] VITALS: BMI 30.3
[2025-05-10 10:04] LABS: Alanine Aminotransferase 20 U/L (10-49); Albumin, Serum 3.8 gm/dL (3.4-4.8); Albumin/Globulin Ratio 1.2 (1.2-2.2); Alkaline Phosphatase 76 U/L (46-116); Anion Gap 9 (7-16); Aspartate Amino Transferase 26 U/L (0-34); BUN/Creatinine Ratio 14 Ratio (12-20); Bilirubin,Total 0.4 mg/dL (0.3-1.2); Blood Urea Nitrogen 10 mg/dL (9-23); Calcium 10.0 mg/dL (8.3-10.6); Calcium (Corrected) 10.2 mg/dL (8.5-10.1); Carbon Dioxide 29.0 mMol/L (20.0-31.0); Chloride 109 mMol/L (98-107); Creatinine (Component) 0.7 mg/dL (0.6-1.3); Estimated Creatinine Clearance 71.7 mL/min (>60); Globulin 3.3 gm/dL (2.3-3.5); Glucose 77 mg/dL (74-106); Osmolality,Calculated 290 (275-295); Potassium 4.3 mMol/L (3.4-5.1); Sodium 147 mMol/L (136-145); Total Protein 7.1 gm/dL (5.7-8.2); eGFR > 60 See Note
[2025-05-11] VITALS (7 sets, daily range): BP systolic 118–132; BP diastolic 63–68; PULSE 70–95; RESP 12–20; TEMP 36.2–36.5; O2SAT 95–99; BMI 29.8
[2025-05-11] MEDS: VANCOMYCIN/NS 1 GM IVPB 200 ML IV (13:50)
--- NOTE | 2025-05-11 16:00 | XR_ITS ---
EXAMINATION: Retrograde pyelogram left with without KUB Fluoroscopy 7 spot fluoroscopic abdomen films Date and time: May 11, 2025, 1742 hours INDICATIONS: History renal or ureteral calculi, ureteral stone manipulation and stent placement today TECHNIQUE AND FINDINGS: 7 spot fluoroscopic films of the abdomen Mild opacification of the left pelvicalyceal system Ureteral stent satisfactory position Fluoroscopy 0.38-minute radiation dose 7.1 mGy IMPRESSION: Retrograde pyelogram as above
--- NOTE | 2025-05-11 16:53 | SUR.PHASEI ---
Pt. arrived to recovery via gurney, eyes closed, responds to verbal commands, VSS, lung sounds clear, equal expansion dena., pt. receiving 3 liters 02 via NC, no c/o pain or nausea at this time, report received from Calvin CUNNINGHAM and Ta RN.
--- NOTE | 2025-05-11 17:50 | SUR.PHASEII ---
Pt. meets criteria for discharge, VSS, no c/o pain or nausea at this time, pt. has urinated. Discharge instructions provided to pt. and pt.'s son, verbalized understanding. IV discontinued without complications, pt. escorted to vehicle via w/c with all of belongings by staff.
--- NOTE | 2025-05-11 18:23 | ESOP_ITS ---
RE: JOSÉ MANUEL DUMONT : 1950 DATE OF OPERATION: 05/11/25 PREPROCEDURE DIAGNOSIS: 1.2 cm impacted infundibulum stone of upper pole of left kidney with segmental hydronephrosis of upper pole. POSTPROCEDURE DIAGNOSIS: Status post retrograde intrarenal surgery, left. PROCEDURE PERFORMED: 1. Fluoroscopic imaging of upper urinary tract. 2. Cystoscopy. 3. Retrograde pyelogram under fluoroscopic control, left. 4. Retrograde intrarenal surgery with laser fragmentation of tightly impacted 1.2 cm infundibular stone obstructing upper pole calyces. 5. Stone basketing x20+. 6. Placement of indwelling ureteral stent, left. SURGEON: Arden Mary MD [employer] SURGEON: Avlerto Lester M.D. ANESTHESIA: General. INDICATIONS: This patient is a 74-year-old lady who comes for completion of treatment of complex left renal stone disease. At this point, the patient has a 1.2 cm stone that appears to be tightly impacted in the infundibulum leading to the upper pole dilated calyces. We discussed with the patient the indication for treatment along with risks, benefits, and alternatives of the different treatment modalities and appropriate consent for retrograde intrarenal surgery is obtained. DESCRIPTION OF FINDINGS: Fluoroscopically, the stone can be readily identified. Endoscopically, the bladder mucosa is unremarkable. Retrograde pyelogram shows a normal caliber ureter, normal renal collecting system. The upper pole is not visualized on contrast study secondary to the impacted infundibular stone. Endoscopic evaluation of the left upper tract does not show any evidence for stones in the ureter or in any of the other calyces of the kidney. The tightly impacted stone is readily identified. Fragmentation is performed. It does appear that the stone is partially grown into the infundibulum, but the stone material can be treated to completion. After complete fragmentation, a ureteral access sheath is utilized and then more than 20 passages with stone baskets are performed to clear out all stone material larger than 2 mm actively from the upper pole calyx. This accomplished, contrast is again injected confirming the integrity of the upper urinary tract and at this point showing the infundibulum to the upper pole patent with chronic distention of the upper pole calyces. An indwelling stent is placed over the safety wire and is positioned with its proximal end in the dilated upper pole with the distal end in the bladder. DESCRIPTION OF PROCEDURE: Prior to initiation of anesthesia, the patient is appropriately identified by the surgeon and operating room personnel. The indication for surgery, site, and scope of surgery are reconfirmed with the patient. The patient received perioperative antibiotics intravenously. After induction of general anesthesia, the patient is positioned on the endoscopy table in lithotomy position. The outer genitalia is prepped and draped in sterile fashion. Cystoscopy is performed using a 21-Ecuadorean instrument. This shows the aforementioned findings. A 5-Ecuadorean angiographic catheter is introduced into the left ureteral orifice over a guidewire. The guidewire is removed. Under fluoroscopic control, contrast is injected with the aforementioned findings. The guidewire is reintroduced and advanced up into the kidney to serve as a safety wire. At this point, the patient received 20 mg of Lasix intravenously to induce diuresis and reduce the risk of pyelovenous reflux and infectious complications. Next, a 7.5-Ecuadorean digital ureteroscope is advanced into the ureter alongside the safety wire. The course of the ureter is traversed under endoscopic control without evidence for any abnormalities. Selective visualization of all calyces in the kidney is performed without evidence for abnormalities. The impacted stone in the infundibulum leading to the upper pole is readily identified. Careful fragmentation of this stone is performed. In the process of fragmentation, it is apparent that the stone has partially grown into the wall of the infundibulum, but all stone material can be fragmented as well as removed from the wall. Further fragmentation is performed in the upper pole and then a ureteral access sheath is utilized and more than 20 passages with stone baskets are performed to clear out all stone material larger than 2 mm actively from the stone-bearing calyx. This accomplished, contrast is again injected confirming the patency of the previously obstructed infundibulum and showing chronic distention of the upper pole calyces. An indwelling stent is placed with the proximal end in the dilated upper pole calyces with the distal end in the bladder. The bladder is emptied. The patient is awakened and returned to recovery where she arrived in satisfactory condition. ESTIMATED BLOOD LOSS: Minimal. COMPLICATIONS: None. SPECIMENS: Stone for chemical analysis. DISPOSITION: The patient will be discharged home from the outpatient surgical area. She will return in [address] Lester's office for a renal ultrasound examination and possible removal of the indwelling ureteral stent in the office setting under local anesthesia. DT: 16:59:29 TT: 18:22:00 Ref: [id number] - TID: [id number]
== END 2025-05-11 17:50 | disposition home or self-care (01) ==
PROVIDERS: Anesthesiology; PCP Family Medicine; Referring Provider Urology; Visit Provider Specialist
PROC: 0TJB8ZZ Inspection of Bladder, Via Natural or Artificial Opening Endoscopic (ICD-10-PCS; CPT 52000; principal; 2025-05-11 16:15)
DX: N13.2 Hydronephrosis with renal and ureteral calculous obstruction (principal)
CPT/HCPCS: 52356; 36415; 74420; 80053; 82365; A4217; A4314; A4649; C1769; C1889; C1894; C2617; J1580; J1938; J2704; J3010; J3373; J3490; A4646; J1596